=== PATIENT | female | born 1965 | race Caucasian/White ===

== ENCOUNTER → 2017-11-18 11:07 | Outpatient (CLI) | payer OTHER, SELFPAY ==
--- NOTE | 2017-11-18 | DI.MG.S_ITS ---
BILATERAL DIGITAL SCREENING MAMMOGRAM 3D/2D WITH CAD: 11/18/2017 CLINICAL: Routine screening. Comparison is made to exams dated: 10/06/2016 mammogram, 09/13/2015 mammogram, and 09/06/2014 mammogram - [facility]. The tissue of both breasts is heterogeneously dense. This may lower the sensitivity of mammography. Current study was also evaluated with a Computer Aided Detection (CAD) system. No significant masses, calcifications, or other findings are seen in either breast. There has been no significant interval change. IMPRESSION: NEGATIVE There is no mammographic evidence of malignancy. A 1 year screening mammogram is recommended. This exam was interpreted at Station ID: [id number]. NOTE: For mammograms, a report in lay terms will be sent to the patient. Approximately 15% of breast malignancies will not be visualized mammographically. In the management of a palpable breast mass, a negative mammogram must not discourage biopsy of a clinically suspicious lesion. Electronically Signed By: Davidson mary/ekaterina:11/18/2017 17:03:11 letter sent: Normal Exam ACR BI-RADS Category 1: Negative [id number]
== END ==
PROVIDERS: Family Provider Physician Assistant; PCP Physician Assistant; Visit Provider Physician Assistant
DX: Z12.31 Encounter for screening mammogram for malignant neoplasm of breast (principal)
CPT/HCPCS: 77063; 77067

== ENCOUNTER 2017-12-07 11:06 | Outpatient (CLI) | payer OTHER, SELFPAY ==
--- NOTE | 2017-12-07 11:08 | DI.RAD.S_ITS ---
PROCEDURE: PAIN L/SI FACET INJ/BLK 1STL INDICATIONS: Lumbosacral spondylosis with facet arthropathy FINDINGS: Fluoroscopic spot filming was performed to verify placement of spinal needles at the left L4, L5, and S1 level(s), as labeled on the films. Appropriate location(s) of the needle tip(s) was confirmed by injection of iodinated contrast. IMPRESSION: Successful left-sided L4-S1 needle tip localizations for medial branch block procedures. Dictated by: Alvarez Rivers M.D. on 12/07/2017 at 14:23 Approved by: Alvarez Rivers M.D. on 12/07/2017 at 14:24
[2017-12-07 11:18] VITALS: BP 124/82; PULSE 88; RESP 18; TEMP 36.2; O2SAT 97
--- NOTE | 2017-12-07 11:49 | P.PCN_ITS ---
Procedures Date/Time Date of procedure: 12/07/17 Time of procedure: 11:47 General Procedure description: POST OP DIAGNOSIS 1. FACET ARTHROPATHY PROCEDURES 1. Left L4, L5 and S1 MB BLOCKS PHYSICIAN: DO KHUSHBOO Carroll is referred by [facility] for treatment of Left Axial LBP. DESCRIPTION OF PROCEDURE Fluoroscopically guided, contrast-controlled left L4, L5 and S1 medial branch blocks with 0.5cc of 0.5% Marcaine. Following denial of allergy and review of potential side effects and complications, including, but not necessarily limited to, infection, allergic reaction, local tissue breakdown, nerve injury, paralysis, stroke and possible , the patient indicated that the patient understood and agreed to proceed. An informed consent document was signed by the patient, witnessed by a nurse, and placed in the patient's chart. The patient's vital signs were monitored throughout the procedure by both the nurse and the physician without significant fluctuation. The patient remained conversant throughout the procedure. In the prone position, following sterile prep and drape of the lumbar region, the left L4, L5 and S1 anatomical location of the medial branch of the dorsal ramus was identified fluoroscopically. Subsequently an anesthetic skin wheal using 1% lidocaine solution was initiated at each of the anatomical spots. Subsequently then a 22-gauge 3.5-inch spinal needle was atraumatically introduced and advanced under fluoroscopic guidance at each of the corresponding sites at the left L4, L5 and S1 MB. After negative aspiration, 0.2 cc of Isovue 200 was injected, confirming placement without vascular or intrathecal uptake. Subsequently then 0.5 cc of 0.5% Marcaine solution was injected at each of the corresponding sites at the left L4, L5 and S1 medial branch locations. The patient tolerated the procedure well without signs or symptoms of complications. Post-procedure, the patient was monitored initiating provocative activities to measure the amount of relief from block of the facetogenic pain. The patient reported a VAS of 7 prior to the procedure and a post-procedure VAS of 1. It has been a pleasure to assist in the diagnostic and therapeutic care of your patient. Total Fluoroscopy Time: 24.8 seconds Total Conscious Sedation Time: 24min POST OP INSTRUCTIONS The patient was provided with a Pain Log to complete over the next several hours and subsequent days prior to the patient's follow up with the ordering physician. If the patient has hopper attendant relief to the solution applied, then they may be a candidate for medial branch rhizotomy. The patient is aware , was provided, once again, with a Pain Log and will follow up with the referring physician for review and clinical correlation Dereck Kohler DO
[2017-12-07 11:52] VITALS: BP 131/80; PULSE 66; RESP 16; O2SAT 99
[2017-12-07 11:57] VITALS: BP 132/70; PULSE 65; RESP 16; O2SAT 98
[2017-12-07 12:02] VITALS: BP 126/82; PULSE 65; RESP 16; O2SAT 99
[2017-12-07 12:05] VITALS: BP 131/80; PULSE 61; RESP 16; O2SAT 99
[2017-12-07] MEDS: BETAMETHASONE 30 MG/5 ML MDV 12 MG INJ (12:07)
[2017-12-07] MEDS: IOPAMIDOL 15 ML VIAL 3 ML INJ (12:08)
[2017-12-07] MEDS: BUPIVACAINE 0.5% (PF) VIAL 2 ML INJ (12:08)
[2017-12-07 12:14] VITALS: BP 111/79; PULSE 64; RESP 16; O2SAT 100
--- NOTE | 2017-12-08 15:07 | PC.NURSE ---
FOLLOW UP CALL MADE. NO ANSWER, LEFT MS WITH PHONE OFFICE PHONE NUMBER TO CALL WITH ANY CONCERNS.
== END 2017-12-07 12:40 | disposition home or self-care (01) ==
LOC: RAD 11:07
PROVIDERS: Family Provider Physician Assistant; PCP Physician Assistant; Visit Provider Physical Medicine & Rehabilitation
DX: M47.817 Spondylosis without myelopathy or radiculopathy, lumbosacral region (principal); M47.816 Spondylosis without myelopathy or radiculopathy, lumbar region
CPT/HCPCS: 64493; 64494; J0702; J2250

== ENCOUNTER 2018-01-04 09:45 | Outpatient (RCR) | payer OTHER, SELFPAY ==
--- NOTE | 2017-09-07 14:34 | PT.OTN ---
Current Diagnoses Crushing injury of abdomen, lower back, and pelvis, subsequent encounter (09/07/17) On September 07, 2017 our therapy services consisting of Speech, Occupational, and Physical therapy transitioned from [employer] electronic documentation system to a new [employer] electronic system. All documentation prior to September 07 can be found under [employer] saved data. From September 07 forward, all medical record documentation will be in [employer] 6.1.
--- NOTE | 2017-09-07 15:07 | PT.OTN ---
Physical Therapy Treatment Note PT-OP-A Visit Information Start: 09/07/17 14:28 Freq: Status: Active Protocol: Activity Type Activity Date Activity User E-Sign Co-Sign Detail Recorded Client Recorded Date Recorded By Document 09/07/17 14:36 GGD [email or web address] 09/07/17 15:06 GGD 09/07/17 14:36 Out-Patient Physical Therapy Visit Information [Visit Information] -Visit Type Treatment Note -Visit Note POC 10/26/17 to 12/25/17 IE date : Date of injury: 12/29/16 -Visit Start Time 13:40 -Visit Stop Time 14:27 -Total Visit Minutes 40 -Visit Number 60 -Number of DOPING SUPERVISOR Visits 1 PT-OP-C Subjective Start: 09/07/17 14:28 Freq: Status: Active Protocol: Activity Type Activity Date Activity User E-Sign Co-Sign Detail Recorded Client Recorded Date Recorded By Document 09/07/17 14:36 GGD [email or web address] 09/07/17 15:06 GG 09/07/17 14:36 OP-PT Subjective [Patient Comments] -Patient Comments Pt states that she worked four days in a row. She had increase in left leg pain and right back pain on day three. She is fatigued and had other medical appointments today. -Patient Reported Progress Improving PT-OP-Q Treatments Start: 09/07/17 14:28 Freq: Status: Active Protocol: Activity Type Activity Date Activity User E-Sign Co-Sign Detail Recorded Client Recorded Date Recorded By Document 09/07/17 14:36 GGD [email or web address] 09/07/17 15:06 GGD 09/07/17 14:36 Therapeutic Exercises [Supine Exercises] 3 -Supine Exercise Name Foam roll calf self release -Side bilateral -Equipment Used foam roll -Reps/Minutes 1 2 -Supine Exercise Name TA stabilization Level 1 b -Reps/Minutes 30 -Comments cues for core control 1 -Supine Exercise Name Hand on knees push/hold -Side bilateral -Resistance 40 seconds each -Comments flexion and diagonals. [Standing Exercises] 1 -Standing Exercise Name Standing calf stretch -Side bilateral -Reps/Minutes 6 -Comments use of step and 2 box with toes forward, IR and ER [Other Exercises] 2 -Other Exercise Name Quadruped Cat/ Cow Lumbar Segmental mobility -Reps/Minutes 10 1 -Other Exercise Name Ryan pose -Side bilateral -Reps/Minutes 2 Manual Therapy Treatment [Soft Tissue Mobilization] 1 -Body Location Left Gastro, and peroneal attachment -Mobilization Type Cross-Friction Myofascial Release Rolling -Intensity/Depth Moderate -Body Position Prone Self-Care/Home Management Treatment [Education] -Patient Education Home Exercise Program -Other Education Foam Rolling for LE and calf stretch PT-OP-T Assessment and Plan Start: 09/07/17 14:28 Freq: Status: Active Protocol: Activity Type Activity Date Activity User E-Sign Co-Sign Detail Recorded Client Recorded Date Recorded By Document 09/07/17 14:36 GGD [email or web address] 09/07/17 15:06 GGD 09/07/17 14:36 Physical Therapy Assessment [Progress Towards Goals] -Progress Towards Goals Progressing Toward Goals -Progress Comments Pt is improving in flexibility and ROM. [Assessment Summary] -Assessment She improving with core stabilization, but need increase in cues with fatigue. She had improve tolerance to work with mild increase in pain and LE symptoms. Pt tender with STM to left lateral gastroc . Physical Therapy Plan [Next Visit Focus/Plan] -Next Visit Plan Advance core and LE flexibility. Progress under current plan Current Diagnoses Crushing injury of abdomen, lower back, and pelvis, subsequent encounter (09/07/17)
--- NOTE | 2017-09-09 18:05 | PT.OTN ---
Current Diagnoses Crushing injury of abdomen, lower back, and pelvis, subsequent encounter (09/09/17) Physical Therapy Treatment Note PT-OP-A Visit Information Start: 09/07/17 14:28 Freq: Status: Active Protocol: Activity Type Activity Date Activity User E-Sign Co-Sign Detail Recorded Client Recorded Date Recorded By Document 09/09/17 15:15 GGD [email or web address] 09/09/17 18:00 GGD 09/09/17 15:15 Out-Patient Physical Therapy Visit Information [Visit Information] -Visit Type Treatment Note -Visit Start Time 15:15 -Visit Stop Time 16:10 -Total Visit Minutes 55 -Visit Number 61 -Number of TUGBOAT ENGINEER Visits 2 [Evaluation Information] -Evaluation Date 01/26/17 PT-OP-C Subjective Start: 09/07/17 14:28 Freq: Status: Active Protocol: Activity Type Activity Date Activity User E-Sign Co-Sign Detail Recorded Client Recorded Date Recorded By Document 09/09/17 15:15 GGD [email or web address] 09/09/17 18:00 GGD 09/09/17 15:15 OP-PT Subjective [Patient Comments] -Patient Comments Pt states that she had decrease in left lower leg and posterior ankle pain for one day after last visit. She having less numbness and tingling in left leg, but increase in back and upper hip pain. -Patient Reported Progress Improving PT-OP-Q Treatments Start: 09/07/17 14:28 Freq: Status: Active Protocol: Activity Type Activity Date Activity User E-Sign Co-Sign Detail Recorded Client Recorded Date Recorded By Document 09/09/17 15:15 GGD [email or web address] 09/09/17 18:00 GGD 09/09/17 15:15 Therapeutic Exercises [Supine Exercises] 5 -Supine Exercise Name bug -Side bilateral -Reps/Minutes 10 4 -Supine Exercise Name Bridge with marches -Side bilateral -Reps/Minutes 10 1 -Supine Exercise Name Hand on knees push/hold -Side bilateral -Resistance 40 seconds each -Comments flexion and diagonals. [Standing Exercises] 1 -Standing Exercise Name Standing calf stretch -Side bilateral -Equipment Used Denis -Reps/Minutes 6 [Other Exercises] 2 -Other Exercise Name Quadruped Cat/ Cow Lumbar Segmental mobility -Reps/Minutes 10 1 -Other Exercise Name Ryan pose -Side bilateral -Reps/Minutes 2 Manual Therapy Treatment [Soft Tissue Mobilization] 2 -Body Location Left glute -Mobilization Type Myofascial Release Rolling Sustained Pressure -Intensity/Depth Deep -Body Position Prone 1 -Body Location Left Gastro, and peroneal attachment -Mobilization Type Cross-Friction Myofascial Release Rolling -Intensity/Depth Moderate -Body Position Prone PT-OP-R Modalities Start: 09/07/17 14:28 Freq: Status: Active Protocol: Activity Type Activity Date Activity User E-Sign Co-Sign Detail Recorded Client Recorded Date Recorded By Document 09/09/17 15:15 GGD [email or web address] 09/09/17 18:00 GGD 09/09/17 15:15 Hot Pack/Cold Pack [Treatment] Cold Pack -Location L/S -Patient Position Hooklying -Treatment Duration (minutes) 10 -Patient Tolerance Good PT-OP-T Assessment and Plan Start: 09/07/17 14:28 Freq: Status: Active Protocol: Activity Type Activity Date Activity User E-Sign Co-Sign Detail Recorded Client Recorded Date Recorded By Document 09/09/17 15:15 GGD [email or web address] 09/09/17 18:00 GGD 09/09/17 15:15 Physical Therapy Assessment [Assessment Summary] -Assessment Pt decrease tenderness with STM to achillies and increase in tenderness glutes. Improving glute and core strength Physical Therapy Plan [Frequency and Duration] -Frequency of Treatment 2x/Week -Duration of Treatment 2 months -Plan of Care Start Date 08/26/17 -Plan of Care End Date 10/25/17 [Next Visit Focus/Plan] -Next Visit Plan Progress under current plan of care. Add ankle thera band eversion for HEP and review HEP.
--- NOTE | 2017-09-16 13:31 | PT.OTN ---
Current Diagnoses Crushing injury of abdomen, lower back, and pelvis, subsequent encounter (09/14/17) Physical Therapy Treatment Note PT-OP-A Visit Information Start: 09/07/17 14:28 Freq: Status: Active Protocol: Document 09/14/17 02:30 [facility] (Rec: 09/16/17 13:31 [facility] [email or web address]) Out-Patient Physical Therapy Visit Information Visit Information Visit Type Treatment Note Visit Start Time 02:30 Visit Stop Time 03:15 Total Visit Minutes 45 Visit Number 22 Number of DATA SECURITY ADMINISTRATOR Visits 0 PT-OP-C Subjective Start: 09/07/17 14:28 Freq: Status: Active Protocol: Document 09/14/17 02:30 [facility] (Rec: 09/16/17 13:31 [facility] [email or web address]) OP-PT Subjective Patient Comments Patient Comments Neetu reports she was able to do a 7 mile flat hike. Her chief complaint is the left sided achilles pain with walking now. Her symptoms began at mile 5. Patient Reported Progress Improving PT-OP-Q Treatments Start: 09/07/17 14:28 Freq: Status: Active Protocol: Document 09/14/17 02:30 [facility] (Rec: 09/16/17 13:31 [facility] [email or web address]) Manual Therapy Treatment Soft Tissue Mobilization 3 Body Location left calf and achilles Mobilization Type Myofascial Release Strumming Trigger Point Release Intensity/Depth Moderate Body Position Prone Comments tenderness medial side of the achilles tendon Strapping Treatment Treatment Body Location left achilles Details of Treatment kinesiotape to support the left achilles tendon PT-OP-R Modalities Start: 09/07/17 14:28 Freq: Status: Active Protocol: Document 09/14/17 02:30 [facility] (Rec: 09/16/17 13:31 [facility] [email or web address]) Hot Pack/Cold Pack Treatment Ice Massage Location left achilles tendon Patient Position Prone Treatment Duration (minutes) 5 Patient Tolerance Good Ultrasound Therapy Treatment Left Leg Treatment Duration (minutes) 8 Patient Position Prone Coupling Medium Ultrasound Gel Frequency Setting (mHz) 1 Mode Setting Continuous Intensity Setting (w/cm2) 1.5 Patient Tolerance Good PT-OP-T Assessment and Plan Start: 09/07/17 14:28 Freq: Status: Active Protocol: Document 09/14/17 02:30 [facility] (Rec: 09/16/17 13:31 [facility] [email or web address]) Physical Therapy Assessment Assessment Summary Assessment Neetu has shown good imrpovement overall with her pelvis. Her chief complaint today is her achilles tendon. As she has been able to increase her distance with walking but her achilles pain is limiting her. Physical Therapy Plan Frequency and Duration Frequency of Treatment 2x/Week Duration of Treatment 2 months Plan of Care Start Date 08/26/17 Plan of Care End Date 10/25/17 Therapeutic Interventions Therapeutic Interventions Home Exercise Program Manual Therapy Neuromuscular Re-education Self-Care/Home Management Soft Tissue Mobilization Taping Therapeutic Exercises Next Visit Focus/Plan Next Visit Plan continue to progress HEP and send in a referral for iontophoresis for the achilles tendon
--- NOTE | 2017-09-21 17:04 | PT.OTN ---
Current Diagnoses Crushing injury of abdomen, lower back, and pelvis, subsequent encounter (09/21/17) Physical Therapy Treatment Note PT-OP-A Visit Information Start: 09/07/17 14:28 Freq: Status: Active Protocol: Document 09/21/17 13:45 GGD (Rec: 09/21/17 17:04 GGD [email or web address]) Out-Patient Physical Therapy Visit Information Visit Information Visit Type Treatment Note Visit Start Time 13:45 Visit Stop Time 14:30 Total Visit Minutes 45 Visit Number 63 Number of INDUSTRIAL ENGINEER Visits 1 PT-OP-C Subjective Start: 09/07/17 14:28 Freq: Status: Active Protocol: Document 09/21/17 13:45 GGD (Rec: 09/21/17 17:04 GGD [email or web address]) OP-PT Subjective Patient Comments Patient Comments Pt states she had mild pain in back, and improved ankle movement with less pain. Patient Reported Progress Improving PT-OP-Q Treatments Start: 09/07/17 14:28 Freq: Status: Active Protocol: Document 09/21/17 13:45 GGD (Rec: 09/21/17 17:04 GGD [email or web address]) Manual Therapy Treatment Soft Tissue Mobilization 3 Body Location left calf and achilles Mobilization Type Myofascial Release Strumming Trigger Point Release Intensity/Depth Moderate Body Position Prone Comments tenderness medial side of the achilles tendon PT-OP-R Modalities Start: 09/07/17 14:28 Freq: Status: Active Protocol: Document 09/21/17 13:45 GGD (Rec: 09/21/17 17:04 GGD [email or web address]) Iontophoresis Treatment Right Ankle Treatment Medication Dexamethasone (-) Treatment Polarity Negative to Negative Patient Tolerance Good Ultrasound Therapy Treatment Left Leg Treatment Duration (minutes) 8 Patient Position Prone Coupling Medium Ultrasound Gel Frequency Setting (mHz) 1 Mode Setting Continuous Intensity Setting (w/cm2) 1.5 Patient Tolerance Good PT-OP-T Assessment and Plan Start: 09/07/17 14:28 Freq: Status: Active Protocol: Document 09/21/17 13:45 GGD (Rec: 09/21/17 17:04 GGD [email or web address]) Physical Therapy Assessment Assessment Summary Assessment Pt had decreasing tenderness and improving ROM. Physical Therapy Plan Frequency and Duration Frequency of Treatment 2x/Week Duration of Treatment 2 months Plan of Care Start Date 04/19/18 Plan of Care End Date 10/25/17 Next Visit Focus/Plan Next Visit Plan Progress under current plan of care. Add ankle thera band eversion for HEP and review HEP.
--- NOTE | 2017-09-23 17:45 | PT.OTN ---
Current Diagnoses Crushing injury of abdomen, lower back, and pelvis, subsequent encounter (09/23/17) Physical Therapy Treatment Note PT-OP-A Visit Information Start: 09/07/17 14:28 Freq: Status: Active Protocol: Document 09/23/17 14:35 GGD (Rec: 09/23/17 17:44 GGD [email or web address]) Out-Patient Physical Therapy Visit Information Visit Information Visit Type Treatment Note Visit Start Time 14:30 Visit Stop Time 13:25 Visit Number 55 Number of WOOD CASKET MAKER Visits 2 Evaluation Information Evaluation Date 01/26/17 PT-OP-C Subjective Start: 09/07/17 14:28 Freq: Status: Active Protocol: Document 09/23/17 14:35 GGD (Rec: 09/23/17 17:44 GGD [email or web address]) OP-PT Subjective Patient Comments Patient Comments 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 OP-PT Pain Assessment Location Lower Back Intensity 5 Scale Used Numeric (1 - 10) Description Aching Dull Sharp PT-OP-Q Treatments Start: 09/07/17 14:28 Freq: Status: Active Protocol: Document 09/23/17 14:35 GGD (Rec: 09/23/17 17:44 GGD [email or web address]) Manual Therapy Treatment Soft Tissue Mobilization 3 Body Location left calf and achilles Mobilization Type Myofascial Release Strumming Trigger Point Release Intensity/Depth Moderate Body Position Prone Comments tenderness medial side of the achilles tendon 2 Body Location Left glute Mobilization Type Myofascial Release Rolling Sustained Pressure Intensity/Depth Deep Body Position Prone Manual Techniques 1 Type MET for left posterior rotation Body Position Supine Reps/Duration 3 PT-OP-R Modalities Start: 09/07/17 14:28 Freq: Status: Active Protocol: Document 09/23/17 14:35 GGD (Rec: 09/23/17 17:44 GGD [email or web address]) Hot Pack/Cold Pack Treatment Cold Pack Location L/S Patient Position Hooklying Treatment Duration (minutes) 10 Patient Tolerance Good Iontophoresis Treatment Right Ankle Treatment Medication Dexamethasone (-) Treatment Polarity Negative to Negative Patient Tolerance Good Ultrasound Therapy Treatment Left Leg Treatment Duration (minutes) 8 Patient Position Prone Coupling Medium Ultrasound Gel Frequency Setting (mHz) 1 Mode Setting Continuous Intensity Setting (w/cm2) 1.5 Patient Tolerance Good PT-OP-T Assessment and Plan Start: 09/07/17 14:28 Freq: Status: Active Protocol: Document 09/23/17 14:35 GGD (Rec: 09/23/17 17:44 GGD [email or web address]) Physical Therapy Assessment Assessment Summary Assessment Pt had decrease in pain with treatment. She had increase in gaurding with gait. Physical Therapy Plan Frequency and Duration Frequency of Treatment 2x/Week Duration of Treatment 2 months Plan of Care Start Date 08/26/17 Plan of Care End Date 10/25/17 Next Visit Focus/Plan Next Visit Plan Progress under current plan of care. Add ankle thera band eversion for HEP and review HEP.
--- NOTE | 2017-09-28 18:13 | PT.OTN ---
Current Diagnoses Crushing injury of abdomen, lower back, and pelvis, subsequent encounter (09/28/17) Physical Therapy Treatment Note PT-OP-A Visit Information Start: 09/07/17 14:28 Freq: Status: Active Protocol: Document 09/28/17 18:08 [facility] (Rec: 09/28/17 18:13 [facility] [email or web address]) Out-Patient Physical Therapy Visit Information Visit Information Visit Type Treatment Note Visit Start Time 13:45 Visit Stop Time 14:30 Total Visit Minutes 45 Visit Number 65 Number of RHEOLOGIST Visits 0 PT-OP-C Subjective Start: 09/07/17 14:28 Freq: Status: Active Protocol: Document 09/28/17 18:08 [facility] (Rec: 09/28/17 18:13 [facility] [email or web address]) OP-PT Subjective Patient Comments Patient Comments Neetu reports she is a little tighter today across the low back and SI joint PT-OP-Q Treatments Start: 09/07/17 14:28 Freq: Status: Active Protocol: Document 09/28/17 18:08 [facility] (Rec: 09/28/17 18:13 [facility] [email or web address]) Manual Therapy Treatment Soft Tissue Mobilization 4 Body Location lumbar paraspinals Mobilization Type Myofascial Release Rolling Intensity/Depth Moderate Body Position Prone 2 Body Location Left glute Mobilization Type Myofascial Release Rolling Sustained Pressure Intensity/Depth Deep Body Position Prone Joint Mobilizations 1 Joint sacral counter nutation Grade II Body Position Prone PT-OP-R Modalities Start: 09/07/17 14:28 Freq: Status: Active Protocol: Document 09/23/17 14:35 GGD (Rec: 09/23/17 17:44 GGD [email or web address]) Hot Pack/Cold Pack Treatment Cold Pack Location L/S Patient Position Hooklying Treatment Duration (minutes) 10 Patient Tolerance Good Iontophoresis Treatment Right Ankle Treatment Medication Dexamethasone (-) Treatment Polarity Negative to Negative Patient Tolerance Good Ultrasound Therapy Treatment Left Leg Treatment Duration (minutes) 8 Patient Position Prone Coupling Medium Ultrasound Gel Frequency Setting (mHz) 1 Mode Setting Continuous Intensity Setting (w/cm2) 1.5 Patient Tolerance Good PT-OP-T Assessment and Plan Start: 09/07/17 14:28 Freq: Status: Active Protocol: Document 09/28/17 18:08 [facility] (Rec: 09/28/17 18:13 [facility] [email or web address]) Physical Therapy Assessment Assessment Summary Assessment Neetu had improved lumbar flexion following treatment and felt as if things had been released. Physical Therapy Plan Frequency and Duration Frequency of Treatment 2x/Week Duration of Treatment 2 months Plan of Care Start Date 08/26/17 Plan of Care End Date 10/25/17 Therapeutic Interventions Therapeutic Interventions Home Exercise Program Manual Therapy Neuromuscular Re-education Self-Care/Home Management Soft Tissue Mobilization Taping Therapeutic Exercises Next Visit Focus/Plan Next Visit Plan progress under current plan of care and emphasize SI stability and alignment Please Sign and Return: I have reviewed this Plan of Care and certify that the skilled therapy services above are required to meet the patient???s needs. Physician Signature Date Printed Name and Credentials Clinical Instructor Signature Printed Name and Credentials
--- NOTE | 2017-09-30 15:24 | PT.OTN ---
Current Diagnoses Crushing injury of abdomen, lower back, and pelvis, subsequent encounter (09/30/17) Physical Therapy Treatment Note PT-OP-A Visit Information Start: 09/07/17 14:28 Freq: Status: Active Protocol: Document 09/30/17 15:13 GGD (Rec: 09/30/17 15:23 GGD [email or web address]) Out-Patient Physical Therapy Visit Information Visit Information Visit Type Treatment Note Visit Start Time 14:35 Visit Stop Time 15:25 Total Visit Minutes 55 Visit Number 66 Number of INDUSTRIAL SAFETY AND HEALTH SPECIALIST Visits 1 Evaluation Information Evaluation Date 01/26/17 PT-OP-C Subjective Start: 09/07/17 14:28 Freq: Status: Active Protocol: Document 09/30/17 15:13 GGD (Rec: 09/30/17 15:23 GGD [email or web address]) OP-PT Subjective Patient Comments Patient Comments Pt states her LBK is tight and has decrease her exercise to stretch. PT-OP-Q Treatments Start: 09/07/17 14:28 Freq: Status: Active Protocol: Document 09/30/17 15:13 GGD (Rec: 09/30/17 15:23 GGD [email or web address]) Manual Therapy Treatment Soft Tissue Mobilization 4 Body Location lumbar paraspinals Mobilization Type Myofascial Release Rolling Intensity/Depth Moderate Body Position Prone 2 Body Location Left glute Mobilization Type Myofascial Release Rolling Sustained Pressure Intensity/Depth Deep Body Position Prone Joint Mobilizations 1 Joint sacral counter nutation Grade II Body Position Prone Manual Techniques 1 Type MET for left posterior rotation Body Position Supine Reps/Duration 3 PT-OP-R Modalities Start: 09/07/17 14:28 Freq: Status: Active Protocol: Document 09/30/17 15:13 GGD (Rec: 09/30/17 15:23 GGD [email or web address]) Hot Pack/Cold Pack Treatment Cold Pack Location L/S Patient Position Hooklying Treatment Duration (minutes) 10 Patient Tolerance Good Iontophoresis Treatment Right Ankle Treatment Medication Dexamethasone (-) Treatment Polarity Negative to Negative Patient Tolerance Good PT-OP-T Assessment and Plan Start: 09/07/17 14:28 Freq: Status: Active Protocol: Document 09/30/17 15:13 GGD (Rec: 09/30/17 15:23 GGD [email or web address]) Physical Therapy Assessment Assessment Summary Assessment PT had decrease in pain with treatment and improve ROM. Physical Therapy Plan Frequency and Duration Frequency of Treatment 2x/Week Duration of Treatment 2 months Plan of Care Start Date 08/26/17 Plan of Care End Date 10/25/17 Next Visit Focus/Plan Next Note Type Treatment Note Next Visit Plan progress under current plan of care and emphasize SI stability and alignment
--- NOTE | 2017-10-07 16:47 | PT.OTN ---
Current Diagnoses Crushing injury of abdomen, lower back, and pelvis, subsequent encounter (10/07/17) Physical Therapy Treatment Note PT-OP-A Visit Information Start: 09/07/17 14:28 Freq: Status: Active Protocol: Document 10/07/17 14:30 GGD (Rec: 10/07/17 16:46 GGD [email or web address]) Out-Patient Physical Therapy Visit Information Visit Information Visit Type Treatment Note Visit Start Time 14:30 Visit Stop Time 15:15 Total Visit Minutes 45 Visit Number 67 Number of MANAGER ORANGE Visits 2 Evaluation Information Evaluation Date 01/26/17 PT-OP-C Subjective Start: 09/07/17 14:28 Freq: Status: Active Protocol: Document 10/07/17 14:30 GGD (Rec: 10/07/17 16:46 GGD [email or web address]) OP-PT Subjective Patient Comments Patient Comments Pt states that she still having some tightness and LBK pain, but able to retrun to strengthening. PT-OP-Q Treatments Start: 09/07/17 14:28 Freq: Status: Active Protocol: Document 10/07/17 14:30 GGD (Rec: 10/07/17 16:46 GGD [email or web address]) Therapeutic Exercises Supine Exercises 5 Supine Exercise Name bug Side bilateral Reps/Minutes 10 4 Supine Exercise Name Bridge with marches Side bilateral Reps/Minutes 10 1 Supine Exercise Name Hand on knees push/hold Side bilateral Resistance 40 seconds each Comments flexion and diagonals. Other Exercises 2 Other Exercise Name Quadruped Cat/Cow Lumbar Segmental mobility Reps/Minutes 10 1 Other Exercise Name Ryan pose Side bilateral Reps/Minutes 2 Manual Therapy Treatment Soft Tissue Mobilization 4 Body Location lumbar paraspinals Mobilization Type Myofascial Release Rolling Intensity/Depth Moderate Body Position Prone 2 Body Location Left glute Mobilization Type Myofascial Release Rolling Sustained Pressure Intensity/Depth Deep Body Position Prone Joint Mobilizations 1 Joint sacral counter nutation Grade II Body Position Prone Manual Techniques 1 Type MET for left posterior rotation Body Position Supine Reps/Duration 3 PT-OP-R Modalities Start: 09/07/17 14:28 Freq: Status: Active Protocol: Document 10/07/17 14:30 GGD (Rec: 10/07/17 16:46 GGD [email or web address]) Iontophoresis Treatment Right Ankle Treatment Medication Dexamethasone (-) Treatment Polarity Negative to Negative Patient Tolerance Good PT-OP-T Assessment and Plan Start: 09/07/17 14:28 Freq: Status: Active Protocol: Document 10/07/17 14:30 GGD (Rec: 10/07/17 16:46 GGD [email or web address]) Physical Therapy Assessment Assessment Summary Assessment Pt decrease pain and improve tolerance to core strengthening Physical Therapy Plan Frequency and Duration Frequency of Treatment 2x/Week Duration of Treatment 2 months Plan of Care Start Date 08/26/17 Plan of Care End Date 10/25/17 Next Visit Focus/Plan Next Note Type Treatment Note Next Visit Plan progress under current plan of care and emphasize SI stability and alignment
--- NOTE | 2017-10-07 17:13 | PT.OTN ---
Current Diagnoses Crushing injury of abdomen, lower back, and pelvis, subsequent encounter (10/07/17) Physical Therapy Treatment Note This is a late entry for visit on 10/05/17. PT-OP-A Visit Information Start: 09/07/17 14:28 Freq: Status: Active Protocol: Document 10/07/17 17:05 SAK (Rec: 10/07/17 17:13 [facility] [id number]) Out-Patient Physical Therapy Visit Information Visit Information Visit Type Treatment Note Visit Start Time 13:45 Visit Stop Time 14:30 Total Visit Minutes 45 Visit Number 67 Number of RETAIL ADMINISTRATIVE ASSISTANT Visits 0 Evaluation Information Evaluation Date 01/26/17 PT-OP-C Subjective Start: 09/07/17 14:28 Freq: Status: Active Protocol: Document 10/07/17 17:05 SAK (Rec: 10/07/17 17:13 [facility] [id number]) OP-PT Subjective Patient Comments Patient Comments Patient reports she has been to chiropractor and massage therapist before PT today, requests focus on exercise and calf today. Open to suggestions from new PT. Patient Reported Progress Improving PT-OP-Q Treatments Start: 09/07/17 14:28 Freq: Status: Active Protocol: Document 10/07/17 17:05 SAK (Rec: 10/07/17 17:13 [facility] [id number]) Therapeutic Exercises Supine Exercises 5 Supine Exercise Name bug Side bilateral Reps/Minutes 10 4 Supine Exercise Name Bridge with marches Side bilateral Reps/Minutes 10 1 Supine Exercise Name Hand on knees push/hold, pull /hold Side bilateral Resistance 40 seconds each Comments flexion, ext and diagonals. Standing Exercises 1 Standing Exercise Name HC stretch Other Exercises 2 Other Exercise Name Quadruped Cat/Cow Lumbar Segmental mobility Reps/Minutes 10 1 Other Exercise Name Ryan pose Side bilateral Reps/Minutes 2 Manual Therapy Treatment Soft Tissue Mobilization 3 Body Location left calf and achilles Mobilization Type Myofascial Release Strumming Trigger Point Release Intensity/Depth Moderate Body Position Prone Comments tenderness medial side of the achilles tendon PT-OP-R Modalities Start: 09/07/17 14:28 Freq: Status: Active Protocol: Document 10/07/17 17:05 SAK (Rec: 10/07/17 17:13 [facility] [id number]) Iontophoresis Treatment Right Ankle Treatment Medication Dexamethasone (-) Treatment Polarity Negative to Negative Patient Tolerance Good Ultrasound Therapy Treatment Left Leg Treatment Duration (minutes) 8 Patient Position Prone Coupling Medium Ultrasound Gel Frequency Setting (mHz) 1 Mode Setting Continuous Intensity Setting (w/cm2) 1.5 PT-OP-T Assessment and Plan Start: 09/07/17 14:28 Freq: Status: Active Protocol: Document 10/07/17 17:05 ROSEANN (Rec: 10/07/17 17:13 [facility] [id number]) Physical Therapy Assessment Assessment Summary Assessment Patient continues to benefit from PT with decrease in pain, improved ROM, strength, and function. Physical Therapy Plan Frequency and Duration Frequency of Treatment 2x/Week Duration of Treatment 2 months Plan of Care Start Date 08/26/17 Plan of Care End Date 10/25/17 Next Visit Focus/Plan Next Note Type Treatment Note Next Visit Plan progress under current plan of care and emphasize SI stability and alignment.
--- NOTE | 2017-10-13 14:39 | PT.OTN ---
Current Diagnoses Crushing injury of abdomen, lower back, and pelvis, subsequent encounter (10/13/17) Physical Therapy Treatment Note PT-OP-A Visit Information Start: 09/07/17 14:28 Freq: Status: Active Protocol: Document 10/13/17 14:39 [facility] (Rec: 10/13/17 14:39 [facility] [email or web address]) Out-Patient Physical Therapy Visit Information Visit Information Visit Type Treatment Note Visit Start Time 12:15 Visit Stop Time 13:00 Total Visit Minutes 45 Visit Number 69 Number of TRACK FITTER Visits 0 PT-OP-C Subjective Start: 09/07/17 14:28 Freq: Status: Active Protocol: Document 10/13/17 14:30 [facility] (Rec: 10/13/17 14:37 [facility] [email or web address]) OP-PT Subjective Patient Comments Patient Comments Neetu Reports she has had some return of the nerve symptoms on the left side of the SI joint and is tight on the right side of the SI joint. PT-OP-Q Treatments Start: 09/07/17 14:28 Freq: Status: Active Protocol: Document 10/13/17 14:30 [facility] (Rec: 10/13/17 14:37 [facility] [email or web address]) Manual Therapy Treatment Soft Tissue Mobilization 4 Body Location lumbar paraspinals Mobilization Type Myofascial Release Rolling Intensity/Depth Moderate Body Position Prone 2 Body Location Left glute Mobilization Type Myofascial Release Rolling Sustained Pressure Intensity/Depth Deep Body Position Prone Joint Mobilizations 1 Joint sacral counter nutation Grade II Body Position Prone PT-OP-R Modalities Start: 09/07/17 14:28 Freq: Status: Active Protocol: Document 10/13/17 14:30 [facility] (Rec: 10/13/17 14:37 [facility] [email or web address]) Ultrasound Therapy Treatment left sacral REBECA muscular attachments Treatment Duration (minutes) 8 Patient Position Prone Coupling Medium Ultrasound Gel Applicator Size (cm2) 5 Frequency Setting (mHz) 1 Mode Setting Continuous Duty Cycle 100% Intensity Setting (w/cm2) 1.5 PT-OP-T Assessment and Plan Start: 09/07/17 14:28 Freq: Status: Active Protocol: Document 10/13/17 14:30 [facility] (Rec: 10/13/17 14:37 [facility] [email or web address]) Physical Therapy Assessment Assessment Summary Assessment Neetu had a flare up of symptoms today in her SI with nerve pain symptoms in L4-L5 and left SI joint region. I did talk to her about considering prolotherapy Physical Therapy Plan Frequency and Duration Frequency of Treatment 2x/Week Duration of Treatment 2 months Plan of Care Start Date 08/26/17 Plan of Care End Date 10/25/17 Therapeutic Interventions Therapeutic Interventions Home Exercise Program Manual Therapy Neuromuscular Re-education Self-Care/Home Management Soft Tissue Mobilization Taping Therapeutic Exercises Next Visit Focus/Plan Next Note Type Treatment Note Next Visit Plan progress under current plan of care and emphasize SI stability and alignment Please Sign and Return: I have reviewed this Plan of Care and certify that the skilled therapy services above are required to meet the patient?s needs. Physician Signature Date Printed Name and Credentials Clinical Instructor Signature Printed Name and Credentials
--- NOTE | 2017-10-19 16:45 | PT.OTN ---
Current Diagnoses Crushing injury of abdomen, lower back, and pelvis, subsequent encounter (10/19/17) Physical Therapy Treatment Note PT-OP-A Visit Information Start: 09/07/17 14:28 Freq: Status: Active Protocol: Document 10/19/17 16:45 GGD (Rec: 10/20/17 17:27 [facility] [email or web address]) Out-Patient Physical Therapy Visit Information Visit Information Visit Type Treatment Note Visit Start Time 16:45 Visit Stop Time 17:30 Total Visit Minutes 45 Visit Number 70 Number of INSPECTOR MOTOR VEHICLES Visits 1 Evaluation Information Evaluation Date 01/26/17 PT-OP-C Subjective Start: 09/07/17 14:28 Freq: Status: Active Protocol: Document 10/19/17 16:45 [facility]GD (Rec: 10/20/17 17:27 [facility] [email or web address]) OP-PT Subjective Patient Comments Patient Comments Pt reports that nerve pain has increase to the point that light touch in painful and can 't tolerate pants. PT-OP-Q Treatments Start: 09/07/17 14:28 Freq: Status: Active Protocol: Document 10/19/17 16:45 [facility]GD (Rec: 10/20/17 17:27 [facility] [email or web address]) Manual Therapy Treatment Soft Tissue Mobilization 4 Body Location lumbar paraspinals Mobilization Type Myofascial Release Rolling Intensity/Depth Moderate Body Position Prone 2 Body Location Left glute Mobilization Type Myofascial Release Rolling Sustained Pressure Intensity/Depth Deep Body Position Prone Joint Mobilizations 1 Joint sacral counter nutation Grade II Body Position Prone PT-OP-R Modalities Start: 09/07/17 14:28 Freq: Status: Active Protocol: Document 10/19/17 16:45 [facility]GD (Rec: 10/20/17 17:27 [facility] [email or web address]) Ultrasound Therapy Treatment left sacral REBECA muscular attachments Treatment Duration (minutes) 8 Patient Position Prone Coupling Medium Ultrasound Gel Applicator Size (cm2) 5 Frequency Setting (mHz) 1 Mode Setting Continuous Duty Cycle 100% Intensity Setting (w/cm2) 1.5 PT-OP-T Assessment and Plan Start: 09/07/17 14:28 Freq: Status: Active Protocol: Document 10/19/17 16:45 [facility]GD (Rec: 10/20/17 17:27 [facility] [email or web address]) Physical Therapy Assessment Assessment Summary Assessment Pt had decrease tenderness and pain with treatment. Physical Therapy Plan Frequency and Duration Frequency of Treatment 2x/Week Duration of Treatment 2 months Plan of Care Start Date 08/26/17 Plan of Care End Date 10/25/17 Next Visit Focus/Plan Next Note Type Treatment Note Next Visit Plan progress under current plan of care and emphasize SI stability and alignment
--- NOTE | 2017-10-27 13:39 | PT.OPPN ---
Current Diagnoses Crushing injury of abdomen, lower back, and pelvis, subsequent encounter (10/27/17) Physical Therapy Progress Note PT-OP-A Visit Information Start: 09/07/17 14:28 Freq: Status: Active Protocol: Document 10/27/17 13:17 [facility] (Rec: 10/27/17 13:34 [facility] [email or web address]) Out-Patient Physical Therapy Visit Information Visit Information Visit Type Progress Note Visit Start Time 12:15 Visit Stop Time 13:10 Total Visit Minutes 55 Visit Number 71 Number of BANKING OFFICER Visits 0 Evaluation Information Evaluation Date 01/26/17 PT-OP-C Subjective Start: 09/07/17 14:28 Freq: Status: Active Protocol: Document 10/27/17 13:17 [facility] (Rec: 10/27/17 13:34 [facility] [email or web address]) OP-PT Subjective Patient Comments Patient Comments Neetu reports she is feeling the nerve irritation again on the left side of her pelvis. She is not able to wear tight pants because they irritate the skin and increase nerve sensitivity. She notes that the pain levels in her left hip have stayed down after the cortisone but the nerve irritation has returned. She describes this as a constant stinging/shocking sensation in the left SI. This was present before the cortisone injection but went away, it is now returned in the past couple of weeks. She also recently changed boats at work where it increased her walking distance and she is not sure if this increase distance has irritated her SI joint. PT-OP-K Range of Motion Start: 09/07/17 14:28 Freq: Status: Active Protocol: Document 10/27/17 13:35 [facility] (Rec: 10/27/17 13:36 [facility] [email or web address]) Hip Goniometric Range of Motion Hip Measured in Degrees Right Hip ROM WFL Yes Left Hip ROM WFL Yes PT-OP-T Assessment and Plan Start: 09/07/17 14:28 Freq: Status: Active Protocol: Document 10/27/17 13:17 [facility] (Rec: 10/27/17 13:34 [facility] [email or web address]) Physical Therapy Assessment Assessment Summary Assessment Overall Neetu continues to make progress and her pain levels have continued to decrease. She is still dealing with SI instability and today her sacrum was rotated left as well as held into counternutation. She is feeling quite a bit of nerve sensitivity and stinging on the left SI joint. Even sensitivity with clothing touching her skin or a towel rubbing over her skin. I am wondering about prolotherapy for her to help stabilize her SI joint. She is able to facilitate her core muscles but seems to still have instability in the left SI region despite strengthening. Physical Therapy Plan Frequency and Duration Frequency of Treatment 2x/Week Duration of Treatment 2 months Plan of Care Start Date 08/26/17 Plan of Care End Date 10/25/17 Therapeutic Interventions Therapeutic Interventions Home Exercise Program Manual Therapy Neuromuscular Re-education Self-Care/Home Management Soft Tissue Mobilization Taping Therapeutic Exercises Next Visit Focus/Plan Next Note Type Treatment Note Next Visit Plan progress under current plan of care and emphasize SI stability and alignment. Recheck sacral alignment next visit. Neetu will also try self MFR with two tennis balls on either side of REBECA's for self correction of sacral counter nutation
--- NOTE | 2017-10-27 13:46 | PT.OTN ---
Current Diagnoses Crushing injury of abdomen, lower back, and pelvis, subsequent encounter (10/27/17) Physical Therapy Treatment Note PT-OP-A Visit Information Start: 09/07/17 14:28 Freq: Status: Active Protocol: Document 10/27/17 13:17 [facility] (Rec: 10/27/17 13:34 [facility] [email or web address]) Out-Patient Physical Therapy Visit Information Visit Information Visit Type Progress Note Visit Start Time 12:15 Visit Stop Time 13:10 Total Visit Minutes 55 Visit Number 71 Number of SPECIALTY MANUFACTURING SUPERVISOR Visits 0 Evaluation Information Evaluation Date 01/26/17 PT-OP-C Subjective Start: 09/07/17 14:28 Freq: Status: Active Protocol: Document 10/27/17 13:17 [facility] (Rec: 10/27/17 13:34 [facility] [email or web address]) OP-PT Subjective Patient Comments Patient Comments Neetu reports she is feeling the nerve irritation again on the left side of her pelvis. She is not able to wear tight pants because they irritate the skin and increase nerve sensitivity. She notes that the pain levels in her left hip have stayed down after the cortisone but the nerve irritation has returned. She describes this as a constant stinging/shocking sensation in the left SI. This was present before the cortisone injection but went away, it is now returned in the past couple of weeks. She also recently changed boats at work where it increased her walking distance and she is not sure if this increase distance has irritated her SI joint. PT-OP-K Range of Motion Start: 09/07/17 14:28 Freq: Status: Active Protocol: Document 10/27/17 13:35 [facility] (Rec: 10/27/17 13:36 [facility] [email or web address]) Hip Goniometric Range of Motion Hip Measured in Degrees Right Hip ROM WFL Yes Left Hip ROM WFL Yes PT-OP-Q Treatments Start: 09/07/17 14:28 Freq: Status: Active Protocol: Document 10/27/17 13:17 [facility] (Rec: 10/27/17 13:34 [facility] [email or web address]) Manual Therapy Treatment Soft Tissue Mobilization 4 Body Location lumbar paraspinals Mobilization Type Myofascial Release Rolling Intensity/Depth Moderate Body Position Prone 2 Body Location Left glute Mobilization Type Myofascial Release Rolling Sustained Pressure Intensity/Depth Deep Body Position Prone Joint Mobilizations 2 Joint sacral rotation right MET Comments left sidelying MET for right rotation of the sacrum ( sacrum was held in left rotation) 1 Joint sacral counter nutation Grade II Body Position Prone PT-OP-R Modalities Start: 09/07/17 14:28 Freq: Status: Active Protocol: Document 10/27/17 13:17 [facility] (Rec: 10/27/17 13:34 [facility] [email or web address]) Electric Stimulation Electric Stimulation Interferential Current (IFC) Body Location Sacrum and SI joint Duration (Minutes) 15 Combined With Heat/Cold Cold Pack Hot Pack/Cold Pack Treatment Cold Pack Location SI joint Ultrasound Therapy Treatment left sacral REBECA muscular attachments Treatment Duration (minutes) 8 Patient Position Prone Coupling Medium Ultrasound Gel Applicator Size (cm2) 5 Frequency Setting (mHz) 1 Mode Setting Continuous Duty Cycle 100% Intensity Setting (w/cm2) 1.5 PT-OP-T Assessment and Plan Start: 09/07/17 14:28 Freq: Status: Active Protocol: Document 10/27/17 13:17 [facility] (Rec: 10/27/17 13:34 [facility] [email or web address]) Physical Therapy Assessment Assessment Summary Assessment Overall Neetu continues to make progress and her pain levels have continued to decrease. She is still dealing with SI instability and today her sacrum was rotated left as well as held into counternutation. She is feeling quite a bit of nerve sensitivity on the left SI joint. Even sensitivity with clothing touching her skin or a towel rubbing over her skin. I am wondering about prolotherapy for her to help stabilize her SI joint. She is able to facilitate her core muscles but seems to still have instability in the left SI region despite strengthening. Physical Therapy Plan Frequency and Duration Frequency of Treatment 2x/Week Duration of Treatment 2 months Plan of Care Start Date 08/26/17 Plan of Care End Date 10/25/17 Therapeutic Interventions Therapeutic Interventions Home Exercise Program Manual Therapy Neuromuscular Re-education Self-Care/Home Management Soft Tissue Mobilization Taping Therapeutic Exercises Next Visit Focus/Plan Next Note Type Treatment Note Next Visit Plan progress under current plan of care and emphasize SI stability and alignment. Recheck sacral alignment next visit. Neetu will also try self MFR with two tennis balls on either side of REBECA's for self correction of sacral counter nutation
--- NOTE | 2017-11-04 19:01 | PT.OTN ---
Current Diagnoses Crushing injury of abdomen, lower back, and pelvis, subsequent encounter (11/03/17) Physical Therapy Treatment Note PT-OP-A Visit Information Start: 09/07/17 14:28 Freq: Status: Active Protocol: Document 11/03/17 12:15 [facility] (Rec: 11/04/17 18:57 [facility] [email or web address]) Out-Patient Physical Therapy Visit Information Visit Information Visit Type Treatment Note Visit Start Time 12:15 Visit Stop Time 13:00 Total Visit Minutes 45 Visit Number 72 Number of WASHHOUSE HAND Visits 0 PT-OP-C Subjective Start: 09/07/17 14:28 Freq: Status: Active Protocol: Document 11/03/17 12:15 [facility] (Rec: 11/04/17 18:57 [facility] [email or web address]) OP-PT Subjective Patient Comments Patient Comments Neetu reports she saw Dr. Kohler and he does not think prolotherapy at this time is warrented. He will do another series of cortisone injections into the lumbar spine first and then nerve cauterization PT-OP-K Range of Motion Start: 09/07/17 14:28 Freq: Status: Active Protocol: Document 10/27/17 13:35 [facility] (Rec: 10/27/17 13:36 [facility] [email or web address]) Hip Goniometric Range of Motion Hip Measured in Degrees Right Hip ROM WFL Yes Left Hip ROM WFL Yes PT-OP-Q Treatments Start: 09/07/17 14:28 Freq: Status: Active Protocol: Document 11/03/17 12:15 [facility] (Rec: 11/04/17 18:57 [facility] [email or web address]) Manual Therapy Treatment Soft Tissue Mobilization 4 Body Location lumbar paraspinals Mobilization Type Myofascial Release Rolling Intensity/Depth Moderate Body Position Prone 2 Body Location Left glute Mobilization Type Myofascial Release Rolling Sustained Pressure Intensity/Depth Deep Body Position Prone Joint Mobilizations 1 Joint sacral counter nutation Grade II Body Position Prone PT-OP-R Modalities Start: 09/07/17 14:28 Freq: Status: Active Protocol: Document 11/04/17 19:00 [facility] (Rec: 11/04/17 19:00 [facility] [email or web address]) Ultrasound Therapy Treatment left sacral REBECA muscular attachments Patient Position Prone Coupling Medium Ultrasound Gel Applicator Size (cm2) 5 Mode Setting Continuous Duty Cycle 100% Comments 1.5 PT-OP-T Assessment and Plan Start: 09/07/17 14:28 Freq: Status: Active Protocol: Document 11/03/17 12:15 [facility] (Rec: 11/04/17 18:57 [facility] [email or web address]) Physical Therapy Assessment Assessment Summary Assessment still sensitve on the Left Si joint region to light touch initially. Nerve pain did calm down following treatment. Physical Therapy Plan Frequency and Duration Frequency of Treatment 2x/Week Duration of Treatment 2 months Plan of Care Start Date 08/26/17 Plan of Care End Date 10/25/17 Therapeutic Interventions Therapeutic Interventions Home Exercise Program Manual Therapy Neuromuscular Re-education Self-Care/Home Management Soft Tissue Mobilization Taping Therapeutic Exercises Next Visit Focus/Plan Next Note Type Treatment Note Next Visit Plan progress under current plan of care and emphasize SI stability and alignment. Recheck sacral alignment next visit. Neetu will also try self MFR with two tennis balls on either side of REBECA's for self correction of sacral counter nutation
--- NOTE | 2017-11-09 11:30 | PT.OTN ---
Current Diagnoses Crushing injury of abdomen, lower back, and pelvis, subsequent encounter (11/09/17) Physical Therapy Treatment Note PT-OP-A Visit Information Start: 09/07/17 14:28 Freq: Status: Active Protocol: Document 11/09/17 11:24 [facility] (Rec: 11/09/17 11:30 [facility] [email or web address]) Out-Patient Physical Therapy Visit Information Visit Information Visit Type Treatment Note Visit Start Time 12:15 Visit Stop Time 13:00 Total Visit Minutes 45 Visit Number 73 Number of WOOD FENCE ERECTOR Visits 0 PT-OP-C Subjective Start: 09/07/17 14:28 Freq: Status: Active Protocol: Document 11/09/17 11:24 [facility] (Rec: 11/09/17 11:30 [facility] [email or web address]) OP-PT Subjective Patient Comments Patient Comments Neetu is doing really well today and nerve pain has calmed down again. She did end up purchasing some pants with a less tight waist band and she feels this is helping PT-OP-K Range of Motion Start: 09/07/17 14:28 Freq: Status: Active Protocol: Document 10/27/17 13:35 [facility] (Rec: 10/27/17 13:36 [facility] [email or web address]) Hip Goniometric Range of Motion Hip Measured in Degrees Right Hip ROM WFL Yes Left Hip ROM WFL Yes PT-OP-Q Treatments Start: 09/07/17 14:28 Freq: Status: Active Protocol: Document 11/09/17 11:24 [facility] (Rec: 11/09/17 11:30 [facility] [email or web address]) Therapeutic Exercises Supine Exercises 5 Supine Exercise Name lower extremity stretches Comments SKTC, hamstrings, piriformis, hip flexor, ITB Other Exercises 4 Other Exercise Name core stabilization exercises in quadraped including OA lifts, OL lifts, OAL Comments worked also on just TA facilitation in quadraped 3 Other Exercise Name down dog stretch 2 Other Exercise Name quadraped cat cow, sidebends, thoracic rotation 1 Other Exercise Name danie pose PT-OP-R Modalities Start: 09/07/17 14:28 Freq: Status: Active Protocol: Document 11/04/17 19:00 [facility] (Rec: 11/04/17 19:00 [facility] [email or web address]) Ultrasound Therapy Treatment left sacral REBECA muscular attachments Patient Position Prone Coupling Medium Ultrasound Gel Applicator Size (cm2) 5 Mode Setting Continuous Duty Cycle 100% Comments 1.5 PT-OP-T Assessment and Plan Start: 09/07/17 14:28 Freq: Status: Active Protocol: Document 11/09/17 11:24 [facility] (Rec: 11/09/17 11:30 [facility] [email or web address]) Physical Therapy Assessment Assessment Summary Assessment Decreased sensitivity today in the SI joint region. Neetu felt okay to work on stretches and lumbar stabilization exercises. She is switching from 10 hours days to 8 and also changed her mattress which may have helped her. Physical Therapy Plan Frequency and Duration Frequency of Treatment 2x/Week Duration of Treatment 2 months Plan of Care Start Date 08/26/17 Plan of Care End Date 10/25/17 Therapeutic Interventions Therapeutic Interventions Home Exercise Program Manual Therapy Neuromuscular Re-education Self-Care/Home Management Soft Tissue Mobilization Taping Therapeutic Exercises Next Visit Focus/Plan Next Note Type Treatment Note Next Visit Plan progress under current plan of care and emphasize SI stability and alignment. Recheck sacral alignment next visit. Neetu will also try self MFR with two tennis balls on either side of REBECA's for self correction of sacral counter nutation
--- NOTE | 2017-11-16 17:26 | PT.OTN ---
Current Diagnoses Crushing injury of abdomen, lower back, and pelvis, subsequent encounter (11/16/17) Physical Therapy Treatment Note PT-OP-A Visit Information Start: 09/07/17 14:28 Freq: Status: Active Protocol: Document 11/16/17 09:00 AMH (Rec: 11/16/17 17:25 AMH [email or web address]) Out-Patient Physical Therapy Visit Information Visit Information Visit Type Treatment Note Visit Start Time 13:00 Visit Stop Time 13:45 Total Visit Minutes 45 Visit Number 74 Number of PRESERVATIONIST Visits 0 PT-OP-C Subjective Start: 09/07/17 14:28 Freq: Status: Active Protocol: Document 11/16/17 09:00 AMH (Rec: 11/16/17 17:25 AMH [email or web address]) OP-PT Subjective Patient Comments Patient Comments Neetu reports she is stiff/sore but has been trying to do body flow classes at the gym. She does note some of the nerve irritation on the left side of her SI joint today PT-OP-K Range of Motion Start: 09/07/17 14:28 Freq: Status: Active Protocol: Document 10/27/17 13:35 AMH (Rec: 10/27/17 13:36 AMH [email or web address]) Hip Goniometric Range of Motion Hip Measured in Degrees Right Hip ROM WFL Yes Left Hip ROM WFL Yes PT-OP-Q Treatments Start: 09/07/17 14:28 Freq: Status: Active Protocol: Document 11/16/17 09:00 AMH (Rec: 11/16/17 17:25 AMH [email or web address]) Manual Therapy Treatment Soft Tissue Mobilization 4 Body Location lumbar paraspinals Mobilization Type Myofascial Release Rolling Intensity/Depth Moderate Body Position Prone Joint Mobilizations 3 Joint posterior rotation of the left SI joint manual technique 1 Joint sacral counter nutation Grade II Body Position Prone Manual Techniques 1 Type manual stretching of the iliopsoas musculatre Comments in mundo test position PT-OP-R Modalities Start: 09/07/17 14:28 Freq: Status: Active Protocol: Document 11/04/17 19:00 AMH (Rec: 11/04/17 19:00 AMH [email or web address]) Ultrasound Therapy Treatment left sacral REBECA muscular attachments Patient Position Prone Coupling Medium Ultrasound Gel Applicator Size (cm2) 5 Mode Setting Continuous Duty Cycle 100% Comments 1.5 PT-OP-T Assessment and Plan Start: 09/07/17 14:28 Freq: Status: Active Protocol: Document 11/16/17 09:00 AMH (Rec: 11/16/17 17:25 AMH [email or web address]) Physical Therapy Assessment Assessment Summary Assessment worked on manual alignment today as Neetu was presenting with left leg longer in supine and felt left sided SI discomfort today Physical Therapy Plan Frequency and Duration Frequency of Treatment 2x/Week Duration of Treatment 2 months Plan of Care Start Date 08/26/17 Plan of Care End Date 10/25/17 Therapeutic Interventions Therapeutic Interventions Home Exercise Program Manual Therapy Neuromuscular Re-education Self-Care/Home Management Soft Tissue Mobilization Taping Therapeutic Exercises Next Visit Focus/Plan Next Note Type Treatment Note Next Visit Plan progress under current plan of care
--- NOTE | 2017-11-23 14:16 | PT.OTN ---
Current Diagnoses Crushing injury of abdomen, lower back, and pelvis, subsequent encounter (11/23/17) Physical Therapy Treatment Note PT-OP-A Visit Information Start: 09/07/17 14:28 Freq: Status: Active Protocol: Document 11/23/17 14:00 AMH (Rec: 11/23/17 14:15 AMH [email or web address]) Out-Patient Physical Therapy Visit Information Visit Information Visit Type Treatment Note Visit Start Time 09:00 Visit Stop Time 09:45 Total Visit Minutes 45 Visit Number 75 Number of PROPOSAL CONSULTANT Visits 0 PT-OP-C Subjective Start: 09/07/17 14:28 Freq: Status: Active Protocol: Document 11/23/17 14:00 AMH (Rec: 11/23/17 14:15 AMH [email or web address]) OP-PT Subjective Patient Comments Patient Comments Symptoms today are improved overall, still feeling the nerve symptoms over the left SI joint. Neetu reports she has been able to do three body flow classes without increased pain. PT-OP-K Range of Motion Start: 09/07/17 14:28 Freq: Status: Active Protocol: Document 10/27/17 13:35 AMH (Rec: 10/27/17 13:36 AMH [email or web address]) Hip Goniometric Range of Motion Hip Measured in Degrees Right Hip ROM WFL Yes Left Hip ROM WFL Yes PT-OP-Q Treatments Start: 09/07/17 14:28 Freq: Status: Active Protocol: Document 11/16/17 09:00 AMH (Rec: 11/16/17 17:25 AMH [email or web address]) Manual Therapy Treatment Soft Tissue Mobilization 4 Body Location lumbar paraspinals Mobilization Type Myofascial Release Rolling Intensity/Depth Moderate Body Position Prone Joint Mobilizations 3 Joint posterior rotation of the left SI joint manual technique 1 Joint sacral counter nutation Grade II Body Position Prone Manual Techniques 1 Type manual stretching of the iliopsoas musculatre Comments in mundo test position PT-OP-R Modalities Start: 09/07/17 14:28 Freq: Status: Active Protocol: Document 11/23/17 14:15 AMH (Rec: 11/23/17 14:16 AMH [email or web address]) Ultrasound Therapy Treatment left sacral REBECA muscular attachments Patient Position Prone Coupling Medium Ultrasound Gel Mode Setting Continuous Duty Cycle 100% Intensity Setting (w/cm2) 1.5 PT-OP-T Assessment and Plan Start: 09/07/17 14:28 Freq: Status: Active Protocol: Document 11/23/17 14:00 AMH (Rec: 11/23/17 14:15 AMH [email or web address]) Physical Therapy Assessment Assessment Summary Assessment equal leg length today and improved stability of the SI joint. Still noting the nerve symptoms and cortisone may really help this region. Physical Therapy Plan Frequency and Duration Frequency of Treatment 2x/Week Duration of Treatment 2 months Plan of Care Start Date 08/26/17 Plan of Care End Date 10/25/17 Therapeutic Interventions Therapeutic Interventions Home Exercise Program Manual Therapy Neuromuscular Re-education Self-Care/Home Management Soft Tissue Mobilization Taping Therapeutic Exercises Next Visit Focus/Plan Next Note Type Treatment Note Next Visit Plan progress under current plan of care
--- NOTE | 2017-11-30 12:18 | PT.OTN ---
Current Diagnoses Crushing injury of abdomen, lower back, and pelvis, subsequent encounter (11/30/17) Physical Therapy Treatment Note PT-OP-A Visit Information Start: 09/07/17 14:28 Freq: Status: Active Protocol: Document 11/30/17 09:10 AMH (Rec: 11/30/17 12:16 AMH [email or web address]) Out-Patient Physical Therapy Visit Information Visit Information Visit Type Treatment Note Visit Start Time 09:10 Visit Stop Time 09:50 Total Visit Minutes 40 Visit Number 76 Number of DRAMA PROFESSOR Visits 0 PT-OP-C Subjective Start: 09/07/17 14:28 Freq: Status: Active Protocol: Document 11/30/17 09:10 AMH (Rec: 11/30/17 12:16 AMH [email or web address]) OP-PT Subjective Patient Comments Patient Comments Neetu reports she is continuing to see progress as she has been able to do yoga but she does feel a lot of popping in her pelvis. Today she feels shifted in her joint some. PT-OP-K Range of Motion Start: 09/07/17 14:28 Freq: Status: Active Protocol: Document 10/27/17 13:35 AMH (Rec: 10/27/17 13:36 AMH [email or web address]) Hip Goniometric Range of Motion Hip Measured in Degrees Right Hip ROM WFL Yes Left Hip ROM WFL Yes PT-OP-Q Treatments Start: 09/07/17 14:28 Freq: Status: Active Protocol: Document 11/30/17 09:00 AMH (Rec: 11/30/17 12:18 AMH [email or web address]) Manual Therapy Treatment Soft Tissue Mobilization 4 Body Location lumbar paraspinals Mobilization Type Myofascial Release Rolling Intensity/Depth Moderate Body Position Prone 2 Body Location Left glute Mobilization Type Myofascial Release Rolling Sustained Pressure Intensity/Depth Deep Body Position Prone 1 Body Location MET left pubic upslip Mobilization Type Other Body Position Supine Joint Mobilizations 1 Joint sacral counter nutation Grade II Body Position Prone PT-OP-R Modalities Start: 09/07/17 14:28 Freq: Status: Active Protocol: Document 11/30/17 09:10 AMH (Rec: 11/30/17 12:16 AMH [email or web address]) Ultrasound Therapy Treatment left sacral REBECA muscular attachments Patient Position Prone Coupling Medium Ultrasound Gel Mode Setting Continuous Duty Cycle 100% Intensity Setting (w/cm2) 1.5 PT-OP-T Assessment and Plan Start: 09/07/17 14:28 Freq: Status: Active Protocol: Document 11/30/17 09:10 AMH (Rec: 11/30/17 12:16 AMH [email or web address]) Physical Therapy Assessment Assessment Summary Assessment left pubic upshift today but corrected well with Manual therapy techniques Physical Therapy Plan Frequency and Duration Frequency of Treatment 2x/Week Duration of Treatment 2 months Plan of Care Start Date 10/26/17 Plan of Care End Date 12/25/17 Therapeutic Interventions Therapeutic Interventions Home Exercise Program Manual Therapy Neuromuscular Re-education Self-Care/Home Management Soft Tissue Mobilization Taping Therapeutic Exercises Next Visit Focus/Plan Next Note Type Treatment Note Next Visit Plan progress under current plan of care
--- NOTE | 2017-12-07 13:45 | PT.OTN ---
Current Diagnoses Crushing injury of abdomen, lower back, and pelvis, subsequent encounter (12/07/17) Physical Therapy Treatment Note PT-OP-A Visit Information Start: 09/07/17 14:28 Freq: Status: Active Protocol: Document 12/07/17 13:36 AMH (Rec: 12/07/17 13:43 AMH [email or web address]) Out-Patient Physical Therapy Visit Information Visit Information Visit Type Treatment Note Visit Start Time 09:00 Visit Stop Time 09:45 Total Visit Minutes 45 Visit Number 77 Number of CAUSTIC CRESYLATE SHIFT SUPERINTENDENT Visits 0 PT-OP-C Subjective Start: 09/07/17 14:28 Freq: Status: Active Protocol: Document 12/07/17 13:36 AMH (Rec: 12/07/17 13:43 AMH [email or web address]) OP-PT Subjective Patient Comments Patient Comments Neetu reports she worked a 11 hour shift yesterday and got home at 1 am. She is feeling right sided heel pain again and could feel at work last night that she was close to straining her right SI joint. She was glad she was tuned in with her body to know to stop the aggravating activity. PT-OP-K Range of Motion Start: 09/07/17 14:28 Freq: Status: Active Protocol: Document 10/27/17 13:35 AMH (Rec: 10/27/17 13:36 AMH [email or web address]) Hip Goniometric Range of Motion Hip Measured in Degrees Right Hip ROM WFL Yes Left Hip ROM WFL Yes PT-OP-Q Treatments Start: 09/07/17 14:28 Freq: Status: Active Protocol: Document 12/07/17 13:43 AMH (Rec: 12/07/17 13:45 AMH [email or web address]) Therapeutic Exercises Supine Exercises 6 Supine Exercise Name TA brace in hooklying Reps/Minutes 5 second hold in supine 5 Supine Exercise Name lower extremity stretches Comments SKTC, hamstrings, piriformis, hip flexor, ITB 2 Supine Exercise Name abdominal stabilization with resistance at arms and knees Reps/Minutes x 10 reps 1 Supine Exercise Name adductor squeeze Reps/Minutes 10 x 5 second hold Manual Therapy Treatment Soft Tissue Mobilization 4 Body Location lumbar paraspinals Mobilization Type Myofascial Release Rolling Intensity/Depth Moderate Body Position Prone 2 Body Location Left glute Mobilization Type Myofascial Release Rolling Sustained Pressure Intensity/Depth Deep Body Position Prone 1 Body Location MET left pubic upslip Mobilization Type Other Body Position Supine PT-OP-R Modalities Start: 09/07/17 14:28 Freq: Status: Active Protocol: Document 11/30/17 09:10 AMH (Rec: 11/30/17 12:16 AMH [email or web address]) Ultrasound Therapy Treatment left sacral REBECA muscular attachments Patient Position Prone Coupling Medium Ultrasound Gel Mode Setting Continuous Duty Cycle 100% Intensity Setting (w/cm2) 1.5 PT-OP-T Assessment and Plan Start: 09/07/17 14:28 Freq: Status: Active Protocol: Document 12/07/17 13:36 AMH (Rec: 12/07/17 13:43 AMH [email or web address]) Physical Therapy Assessment Assessment Summary Assessment right pubic upslip today corrected with manual therapy technique. SI joint is still easily shifted with activity. Neetu does see Dr. Kohler today for a cortisone injection into the left facet joints L4- 5 Physical Therapy Plan Frequency and Duration Frequency of Treatment 2x/Week Duration of Treatment 2 months Plan of Care Start Date 10/26/17 Plan of Care End Date 12/25/17 Therapeutic Interventions Therapeutic Interventions Home Exercise Program Manual Therapy Neuromuscular Re-education Self-Care/Home Management Soft Tissue Mobilization Taping Therapeutic Exercises Next Visit Focus/Plan Next Note Type Treatment Note Next Visit Plan progress under current plan of care
--- NOTE | 2017-12-14 15:48 | PT.OTN ---
Current Diagnoses Crushing injury of abdomen, lower back, and pelvis, subsequent encounter (12/14/17) Physical Therapy Treatment Note PT-OP-A Visit Information Start: 09/07/17 14:28 Freq: Status: Active Protocol: Document 12/14/17 09:45 GGD (Rec: 12/14/17 15:48 GGD [email or web address]) Out-Patient Physical Therapy Visit Information Visit Information Visit Type Treatment Note Visit Start Time 09:45 Visit Stop Time 10:30 Total Visit Minutes 45 Visit Number 78 Number of FLOOR BROKER Visits 1 PT-OP-C Subjective Start: 09/07/17 14:28 Freq: Status: Active Protocol: Document 12/14/17 09:45 GGD (Rec: 12/14/17 15:48 GGD [email or web address]) OP-PT Subjective Patient Comments Patient Comments PT states that she feels unstable and having pain mostly in lower back upper SI. PT-OP-K Range of Motion Start: 09/07/17 14:28 Freq: Status: Active Protocol: Document 10/27/17 13:35 AMH (Rec: 10/27/17 13:36 AMH [email or web address]) Hip Goniometric Range of Motion Hip Measured in Degrees Right Hip ROM WFL Yes Left Hip ROM WFL Yes PT-OP-Q Treatments Start: 09/07/17 14:28 Freq: Status: Active Protocol: Document 12/14/17 09:45 GGD (Rec: 12/14/17 15:48 GGD [email or web address]) Therapeutic Exercises Supine Exercises 7 Supine Exercise Name hands on knees push Reps/Minutes 4 5 Supine Exercise Name lower extremity stretches Comments SKTC, hamstrings, piriformis, hip flexor, ITB 2 Supine Exercise Name abdominal stabilization with resistance at arms and knees Reps/Minutes x 10 reps Manual Therapy Treatment Soft Tissue Mobilization 4 Body Location lumbar paraspinals Mobilization Type Myofascial Release Rolling Intensity/Depth Moderate Body Position Prone 2 Body Location Left glute Mobilization Type Myofascial Release Rolling Sustained Pressure Intensity/Depth Deep Body Position Prone 1 Body Location MET left pubic upslip Mobilization Type Other Body Position Supine PT-OP-R Modalities Start: 09/07/17 14:28 Freq: Status: Active Protocol: Document 12/14/17 09:45 GGD (Rec: 12/14/17 15:48 GGD [email or web address]) Ultrasound Therapy Treatment left sacral REBECA muscular attachments Patient Position Prone Coupling Medium Ultrasound Gel Mode Setting Continuous Duty Cycle 100% Intensity Setting (w/cm2) 1.5 PT-OP-T Assessment and Plan Start: 09/07/17 14:28 Freq: Status: Active Protocol: Document 12/14/17 09:45 GGD (Rec: 12/14/17 15:48 GGD [email or web address]) Physical Therapy Assessment Assessment Summary Assessment Pt had decrease pain after ranjit therapy to correct pubic upslip. She improving with core activations. Physical Therapy Plan Frequency and Duration Frequency of Treatment 2x/Week Duration of Treatment 2 months Plan of Care Start Date 10/26/17 Plan of Care End Date 12/25/17 Next Visit Focus/Plan Next Note Type Treatment Note Next Visit Plan progress under current plan of care
--- NOTE | 2017-12-21 16:48 | PT.OTN ---
Current Diagnoses Crushing injury of abdomen, lower back, and pelvis, subsequent encounter (12/21/17) Physical Therapy Treatment Note PT-OP-A Visit Information Start: 09/07/17 14:28 Freq: Status: Active Protocol: Document 12/21/17 12:00 GGD (Rec: 12/21/17 16:48 GGD [email or web address]) Out-Patient Physical Therapy Visit Information Visit Information Visit Type Treatment Note Visit Start Time 12:00 Visit Stop Time 12:45 Total Visit Minutes 45 Visit Number 79 Number of INTERNET MARKETING DIRECTOR Visits 2 PT-OP-C Subjective Start: 09/07/17 14:28 Freq: Status: Active Protocol: Document 12/21/17 12:00 GGD (Rec: 12/21/17 16:48 GGD [email or web address]) OP-PT Subjective Patient Comments Patient Comments Pt states that the injection didn't help and she feels unstable with increase in pain . PT-OP-K Range of Motion Start: 09/07/17 14:28 Freq: Status: Active Protocol: Document 10/27/17 13:35 AMH (Rec: 10/27/17 13:36 AMH [email or web address]) Hip Goniometric Range of Motion Hip Measured in Degrees Right Hip ROM WFL Yes Left Hip ROM WFL Yes PT-OP-Q Treatments Start: 09/07/17 14:28 Freq: Status: Active Protocol: Document 12/21/17 12:00 GGD (Rec: 12/21/17 16:48 GGD [email or web address]) Therapeutic Exercises Supine Exercises 7 Supine Exercise Name hands on knees push Reps/Minutes 4 5 Supine Exercise Name lower extremity stretches Comments SKTC, hamstrings, piriformis, hip flexor, ITB 2 Supine Exercise Name abdominal stabilization with resistance at arms and knees Reps/Minutes x 10 reps Manual Therapy Treatment Soft Tissue Mobilization 4 Body Location lumbar paraspinals Mobilization Type Myofascial Release Rolling Intensity/Depth Moderate Body Position Prone 2 Body Location Left glute Mobilization Type Myofascial Release Rolling Sustained Pressure Intensity/Depth Deep Body Position Prone 1 Body Location MET left pubic upslip Mobilization Type Other Body Position Supine PT-OP-R Modalities Start: 09/07/17 14:28 Freq: Status: Active Protocol: Document 12/21/17 12:00 GGD (Rec: 12/21/17 16:48 GGD [email or web address]) Ultrasound Therapy Treatment left sacral REBECA muscular attachments Patient Position Prone Coupling Medium Ultrasound Gel Mode Setting Continuous Duty Cycle 100% Intensity Setting (w/cm2) 1.5 PT-OP-T Assessment and Plan Start: 09/07/17 14:28 Freq: Status: Active Protocol: Document 12/21/17 12:00 GGD (Rec: 12/21/17 16:48 GGD [email or web address]) Physical Therapy Assessment Assessment Summary Assessment Pt need cues for core exercise . She did have decrease in c/O pain after ranjit therapy. Physical Therapy Plan Frequency and Duration Frequency of Treatment 2x/Week Duration of Treatment 2 months Plan of Care Start Date 10/26/17 Plan of Care End Date 12/25/17 Next Visit Focus/Plan Next Note Type Treatment Note Next Visit Plan progress under current plan of care
--- NOTE | 2017-12-28 13:26 | PT.OTN ---
Current Diagnoses Crushing injury of abdomen, lower back, and pelvis, subsequent encounter (12/28/17) Physical Therapy Treatment Note PT-OP-A Visit Information Start: 09/07/17 14:28 Freq: Status: Active Protocol: Document 12/28/17 13:10 AMH (Rec: 12/28/17 13:18 AMH [email or web address]) Out-Patient Physical Therapy Visit Information Visit Information Visit Type Treatment Note Visit Start Time 09:00 Visit Stop Time 09:45 Total Visit Minutes 45 Visit Number 80 Number of FREELANCE PATTERNMAKER Visits 0 PT-OP-C Subjective Start: 09/07/17 14:28 Freq: Status: Active Protocol: Document 12/28/17 13:10 AMH (Rec: 12/28/17 13:18 AMH [email or web address]) OP-PT Subjective Patient Comments Patient Comments Neetu reports her low back is feeling less nervy Overall she is feeling hopeful that she is doing better. She discussing prolotherapy options PT-OP-K Range of Motion Start: 09/07/17 14:28 Freq: Status: Active Protocol: Document 10/27/17 13:35 AMH (Rec: 10/27/17 13:36 AMH [email or web address]) Hip Goniometric Range of Motion Hip Measured in Degrees Right Hip ROM WFL Yes Left Hip ROM WFL Yes PT-OP-Q Treatments Start: 09/07/17 14:28 Freq: Status: Active Protocol: Document 12/28/17 13:10 AMH (Rec: 12/28/17 13:18 AMH [email or web address]) Manual Therapy Treatment Soft Tissue Mobilization 4 Body Location lumbar paraspinals Mobilization Type Myofascial Release Rolling Intensity/Depth Moderate Body Position Prone 2 Body Location Left glute Mobilization Type Myofascial Release Rolling Sustained Pressure Intensity/Depth Deep Body Position Prone Joint Mobilizations 1 Joint sacral mobilization into counter nutation Manual Techniques 1 Type manual iliopsoas stretch Comments in mundo test position bilaterally PT-OP-R Modalities Start: 09/07/17 14:28 Freq: Status: Active Protocol: Document 12/21/17 12:00 GGD (Rec: 12/21/17 16:48 GGD [email or web address]) Ultrasound Therapy Treatment left sacral REBECA muscular attachments Patient Position Prone Coupling Medium Ultrasound Gel Mode Setting Continuous Duty Cycle 100% Intensity Setting (w/cm2) 1.5 PT-OP-T Assessment and Plan Start: 09/07/17 14:28 Freq: Status: Active Protocol: Document 12/28/17 13:10 AMH (Rec: 12/28/17 13:18 AMH [email or web address]) Physical Therapy Assessment Assessment Summary Assessment decreased overall pain today, still presenting with pelvis popping a lot but pain levels decreased. She is a good candidate for prolotherapy. Physical Therapy Plan Frequency and Duration Frequency of Treatment 2x/Week Duration of Treatment 2 months Plan of Care Start Date 10/26/17 Plan of Care End Date 01/04/18 Therapeutic Interventions Therapeutic Interventions Home Exercise Program Manual Therapy Neuromuscular Re-education Self-Care/Home Management Soft Tissue Mobilization Taping Therapeutic Exercises Next Visit Focus/Plan Next Note Type Treatment Note Next Visit Plan continue for 1 visit then DC to independent HEP
--- NOTE | 2018-01-04 12:14 | PT.OTN ---
Current Diagnoses Crushing injury of abdomen, lower back, and pelvis, subsequent encounter (01/04/18) Physical Therapy Treatment Note PT-OP-A Visit Information Start: 09/07/17 14:28 Freq: Status: Active Protocol: Document 01/04/18 09:45 GGD (Rec: 01/04/18 12:14 GGD [email or web address]) Out-Patient Physical Therapy Visit Information Visit Information Visit Type Treatment Note Visit Start Time 09:00 Visit Stop Time 09:45 Total Visit Minutes 45 Visit Number 81 Number of STAFF RESEARCH SCIENTIST Visits 1 PT-OP-C Subjective Start: 09/07/17 14:28 Freq: Status: Active Protocol: Document 01/04/18 09:45 GGD (Rec: 01/04/18 12:14 GGD [email or web address]) OP-PT Subjective Patient Comments Patient Comments Pt states she feeling better and having less pain. She has been increasing her flexibilty exercise. PT-OP-K Range of Motion Start: 09/07/17 14:28 Freq: Status: Active Protocol: Document 10/27/17 13:35 AMH (Rec: 10/27/17 13:36 AMH [email or web address]) Hip Goniometric Range of Motion Hip Measured in Degrees Right Hip ROM WFL Yes Left Hip ROM WFL Yes PT-OP-Q Treatments Start: 09/07/17 14:28 Freq: Status: Active Protocol: Document 01/04/18 09:45 GGD (Rec: 01/04/18 12:14 GGD [email or web address]) Manual Therapy Treatment Soft Tissue Mobilization 4 Body Location lumbar paraspinals Mobilization Type Myofascial Release Rolling Intensity/Depth Moderate Body Position Prone 2 Body Location Left glute Mobilization Type Myofascial Release Rolling Sustained Pressure Intensity/Depth Deep Body Position Prone Joint Mobilizations 1 Joint sacral mobilization into counter nutation Manual Techniques 1 Type manual iliopsoas stretch Comments in mundo test position bilaterally PT-OP-R Modalities Start: 09/07/17 14:28 Freq: Status: Active Protocol: Document 12/21/17 12:00 GGD (Rec: 12/21/17 16:48 GGD [email or web address]) Ultrasound Therapy Treatment left sacral REBECA muscular attachments Patient Position Prone Coupling Medium Ultrasound Gel Mode Setting Continuous Duty Cycle 100% Intensity Setting (w/cm2) 1.5 PT-OP-T Assessment and Plan Start: 09/07/17 14:28 Freq: Status: Active Protocol: Document 01/04/18 09:45 GGD (Rec: 01/04/18 12:14 GGD [email or web address]) Physical Therapy Assessment Assessment Summary Assessment Pt is improving flexibilty. She is tender to glute and hamstrings. Physical Therapy Plan Frequency and Duration Frequency of Treatment 2x/Week Duration of Treatment 2 months Plan of Care Start Date 10/26/17 Plan of Care End Date 01/04/18 Therapeutic Interventions Therapeutic Interventions Home Exercise Program Manual Therapy Neuromuscular Re-education Self-Care/Home Management Soft Tissue Mobilization Taping Therapeutic Exercises Discharge Physical Therapy Discharge Reasons Goals Met
--- NOTE | 2018-04-07 16:19 | PT.OPDS ---
Current Diagnoses Crushing injury of abdomen, lower back, and pelvis, subsequent encounter (01/04/18) Provider Visit Care Team Role Provider Type Mei Sun PA-C Attending Provider Advanced Oxygen Therapy Teacher Family Provider Primary Care Provider Specialty: Internal Medicine Address: [address] [place] [address], [id number] Email: Visit Number Visit Number 05/19 Discharge Summary PT-OP-B Current Condition Start: 09/07/17 14:28 Freq: Status: Active Protocol: Document 03/14/18 17:59 ML (Rec: 03/14/18 18:34 ML [email or web address]) Current Condition History of Current Condition Current Complaints R SI pain and L SI instability History of Current Condition Pt reports of R SI pain and continued L SI instability since her last sessions of PT. The pt noted that she was feeling better, but the pain has returned and she still feels instability through her pelvis, especially since she has changed jobs ambulating about 15 miles a day at work rather than the 5 miles she was doing. The pt said the pain is always constant, fluctuating between a 2/10 when it is feeling good and a 6/10 on average. The pt finds some releif with rest, stretching, going into position, and using ice or heat (depending on the day). The pt also notes that the pain keeps her up at night despite her efforts for position change. Sometimes this is in addition to her legs feeling restless, especially after long days when she begins to rest her body by sitting or going to bed. The pt also notes she is unable to participate sexually without pain, especially in an abducted position. 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 The pt is scheduled for a pre- appointment for prolotherapy on 03/25/18 and plans to continue PT after receiving that treatment, for her lack of stabilizing scar tissue on her L side. The pt greatly desires to be active again and find pain relieve from her current condition. Treatment Goals Patient/Caregiver Goals dec pain and activity of many kinds (skiing, hiking, running , gardening, snowshoeing, yoga , etc.) PT-OP-C Subjective Start: 09/07/17 14:28 Freq: Status: Active Protocol: Document 03/14/18 17:59 ML (Rec: 03/14/18 18:34 ML [email or web address]) OP-PT Subjective Patient Comments Patient Comments Pt notes that things have really gotten worse with her new job position, but was able to take two weeks vacation since the transition so has only been on this schedule for about 1 week. Patient Reported Progress Worse OP-PT Pain Assessment Location L SI Description- Other medial to lateral upon palpation Pain Duration only to touch Radiating Location low back on L to L side in a horizontal line R SI Intensity 6 Scale Used Numeric (1 - 10) PT-OP-F Manual Assessment Start: 03/15/18 08:43 Freq: Status: Active Protocol: Document 03/14/18 17:59 ML (Rec: 03/15/18 08:49 ML [email or web address]) Manual Assessments Soft Tissue Assessment Soft Tissue Mobility Assessment L SI region radiates laterally to lateral trunk in horizontal pattern with very light touch Joint Mobility Assessment Joint Mobility Assessment R inominate compression creates relief; L inominate compression cases R pain; bilateral compression laterally on iliac crests creates pain on R posteriorly; dec L inominate motion in ext ; passive hip flexion motion assessments presents with poor timing of her L side ( mobility of sacrum and inominate move together at 90 and lumbar moves at 110) PT-OP-G Mobility & Gait Start: 03/15/18 08:49 Freq: Status: Active Protocol: Document 03/14/18 17:59 ML (Rec: 03/15/18 08:53 ML [email or web address]) OP Gait Assessment Comments Gait Comments Pt initates gait with lat trunk lean and ambulates with very little trunk or pelvis motion PT-OP-J Posture/Palpation/Skin Start: 03/15/18 08:49 Freq: Status: Active Protocol: Document 03/14/18 17:59 ML (Rec: 03/15/18 08:53 ML [email or web address]) Posture Evaluation Ruslan Postural Classification System Ruslan Postural Classifications Anterior/Posterior Vertebral Compression Test 0 Elbow Flexion Test 0 Lumbar Protective Mechanism Left AP 0 Lumbar Protective Mechanism Right AP 0 Lumbar Protective Mechanism Left PA 0 Lumbar Protective Mechanism Right PA 0 PT-OP-K Range of Motion Start: 09/07/17 14:28 Freq: Status: Active Protocol: Document 10/27/17 13:35 AMH (Rec: 10/27/17 13:36 AMH [email or web address]) Hip Goniometric Range of Motion Hip Measured in Degrees Right Hip ROM WFL Yes Left Hip ROM WFL Yes PT-OP-M Strength Start: 09/07/17 14:28 Freq: Status: Active Protocol: Document 03/14/18 17:59 ML (Rec: 03/15/18 08:43 ML [email or web address]) Hip Strength Hip Manual Muscle Testing L Flexion (L2) 3+ Fair+ Extension (S1) 4 Good Abduction 3+ Fair+ External Rotation 4- Good- Internal Rotation 3+ Fair+ R Flexion (L2) 4 Good Extension (S1) 4 Good Abduction 4- Good- External Rotation 4- Good- Internal Rotation 3+ Fair+ Knee Strength Knee Manual Muscle Testing L Flexion (S2) 4 Good Extension (L3) 4 Good R Flexion (S2) 3+ Fair+ Extension (L3) 4- Good- Ankle/Foot Strength Ankle and Foot Manual Muscle Testing L Dorsiflexion (L4) 4 Good Plantarflexion (S1) 4+ Good+ R Dorsiflexion (L4) 4 Good Plantarflexion (S1) 4+ Good+ PT-OP-T Assessment and Plan Start: 09/07/17 14:28 Freq: Status: Active Protocol: Document 03/14/18 17:59 ML (Rec: 03/14/18 18:34 ML [email or web address]) Physical Therapy Assessment Rehab Potential Rehabilitation Potential Good Evaluation Complexity Number of Personal Factors/Comorbidities 1-2 Number of Body Systems Impaired 4 or More Clinical Presentation at Evaluation Evolving Impairments Impairments Activity Tolerance Balance Functional Activities Functional Mobility Gait Pain Posture ROM Sensation Soft Tissue Mobility Strength Goals 2 Impairment dec strength Short Term Goal (STG) Pt will be independent with HEP in order to improve strength. STG Duration 04/13/18 Board Of Education Secretary Goal (LTG) Pt will have 4/5 strength in her LEs bilaterally in order to participate in physical activity. LTG Duration 05/14/18 1 Impairment pain Short Term Goal (STG) Pt's pain will dec in order for her to participate in yoga . STG Duration 04/13/18 Board Of Education Secretary Goal (LTG) Pt's pain will dec to 3/10 on average throughout her work day. LTG Duration 05/14/18 Assessment Summary Assessment Pt reported to PT after a long day of work with R SI pain, and indicating L SI instability. Pt is very sensitive to palpation on her L SI region causing radiating nerve pain to her L lateral trunk directly horizontal to palpation. The pt presents with weakness in her LEs bilaterally and has significant postural instability that was assessed through static postural tests. The pt reported pain posteriorly with SI compression test. She also noted relief of pain when compression was applied to either inominate in a prone position. She presents with antalgic gait and poor posture . Her posture was addressed, and the pt noted increased stability through examination when achieving the correct posture. Pt was instructed to work on her posture at home. Physical Therapy Plan Frequency and Duration Frequency of Treatment 2x/Week Duration of Treatment 2 months Plan of Care Start Date 04/13/18 Plan of Care End Date 05/14/18 Therapeutic Interventions Therapeutic Interventions Aquatic Therapy Balance Training Gait Training Home Exercise Program Joint Mobilizations Manual Therapy Neuromuscular Re-education Patient/Caregiver Education Self-Care/Home Management Soft Tissue Mobilization Taping Therapeutic Activities Therapeutic Exercises Modalities Biofeedback Cold Pack/Ice Massage Electric Stimulation Hot Packs Iontophoresis Traction- Mechanical Ultrasound Next Visit Focus/Plan Next Note Type Treatment Note Next Visit Plan review posture, gait, PNF, HEP (strengthening)
== END 2018-04-28 11:29 ==
LOC: PHYS 09:45
PROVIDERS: Family Provider Physician Assistant; PCP Physician Assistant; Visit Provider Physician Assistant
DX: S38.1XXD Crushing injury of abdomen, lower back, and pelvis, subsequent encounter (principal)
CPT/HCPCS: 97010; 97014; 97035; 97110; 97140; 97535; G0283

== ENCOUNTER → 2018-04-23 08:07 | Outpatient (CLI) | payer OTHER, SELFPAY ==
[2018-04-23 10:15] LABS: Add Manual Diff / Slide Review NO; Basophils Percent Auto 0.5 % (0-2); Eosinophils Percent Auto 1.5 % (2-4); Hematocrit 39.9 % (36-46); Hemoglobin 13.6 g/dL (12.0-16.0); Lymphocytes Percent Auto 46.1 % (25-40); Mean Corpuscular HGB Conc 34.1 % (30-36); Mean Corpuscular Hemoglobin 29.7 PG (26-34); Mean Corpuscular Volume 87.1 fL (80-100); Monocytes Percent Auto 6.9 % (3-14); Neutrophils Absolute Auto 2100 /uL (1500-7000); Platelet Count 207 X10^3/uL (150-400); Red Blood Cell Count 4.59 X10^6/uL (4.0-5.2); Red Cell Distribution Width 13.5 % (11.6-14.8); White Blood Cell Count 4.8 X10^3/uL (4.5-11.0)
[2018-04-23 10:39] LABS: Alanine Aminotransferase 37 IU/L (9-52); Albumin 4.5 g/dL (3.5-5.0); Albumin Globulin Ratio 1.7 (1.0-2.8); Alkaline Phosphatase 48 U/L (38-126); Aspartate Aminotransferase 23 IU/L (14-36); BUN Creatinine Ratio 16.7 (6-22); Bilirubin Total 0.3 mg/dL (0.2-1.3); Blood Urea Nitrogen 10 mg/dL (7-17); Calcium 9.6 mg/dL (8.4-10.2); Carbon Dioxide 28 mmol/L (22-32); Chloride 105 mmol/L (98-107); Cholesterol 230 mg/dL (140-199); Estimated Glomerular Filt Rate > 60.0 mL/min (>60); Globulin 2.7 g/dL (1.7-4.1); Glucose 99 mg/dL (70-100); HDL Cholesterol 54 mg/dL (40-60); HEMOLYSIS < 15 (0-50); LDL Cholesterol Calculated 154 mg/dL (<100); Sodium 144 mmol/L (137-145); Total Protein 7.2 g/dL (6.3-8.2); Triglycerides 110 mg/dL (35-150)
== END ==
PROVIDERS: Family Provider Physician Assistant; PCP Physician Assistant; Visit Provider Physician Assistant
DX: E78.5 Hyperlipidemia, unspecified (principal)
CPT/HCPCS: 36415; 80053; 80061; 85025

== ENCOUNTER 2018-06-30 10:30 | Outpatient (RCR) | payer OTHER, SELFPAY ==
--- NOTE | 2018-03-14 16:53 | PT.OPPOC ---
Current Diagnoses Other specified joint disorders, left hip (03/23/18) Crushing injury of abdomen, lower back, and pelvis, subsequent encounter (03/23/18) Provider Visit Care Team Role Provider Type Mei Sun PA-C Attending Provider Advanced Manager Business Operations Family Provider Primary Care Provider Specialty: Internal Medicine Address: [address] [place] [address], [id number] Email: Plan Of Care PT-OP-T Assessment and Plan Start: 03/14/18 09:32 Freq: Status: Active Protocol: Document 03/21/18 17:54 ML (Rec: 03/21/18 18:07 ML [email or web address]) Physical Therapy Assessment Goals 2 Impairment dec strength Short Term Goal (STG) Pt will be independent with HEP in order to improve strength. STG Duration 04/13/18 Multiskill Operator Goal (LTG) Pt will have 4/5 LE strength bilaterally in order to participate in physical activity. LTG Duration 05/14/18 1 Impairment pain Short Term Goal (STG) Pt's pain will dec in order for her to particiapte in yoga . STG Duration 04/13/18 Multiskill Operator Goal (LTG) Pt's pain will dec to 3/10 on average throughout her work day. LTG Duration 05/14/18 Assessment Summary Assessment Pt reported to PT after a long day of work with R SI pain, and indicating L SI instability. Pt is very sensitive to palpation on her L SI region causing radiating nerve pain to her L lateral trunk directly horizontal to palpation. The pt presents with weakness in her LEs bilaterally and has significant postural instability that was assessed through static postural tests. The pt reported pain posteriorly with SI compression test. She also noted relief of pain when compression was applied to either inominate in a prone position. She presents with antalgic gait and poor posture . Her posture was addressed, and the pt noted increased stability through examination when achieving the correct posture. Pt was instructed to work on her posture at home. Physical Therapy Plan Frequency and Duration Frequency of Treatment 2x/Week Duration of Treatment 2 months Plan of Care Start Date 03/14/18 Plan of Care End Date 05/14/18 Next Visit Focus/Plan Next Note Type Treatment Note Next Visit Plan Review HEP; PNF of R; posture in sitting and reassess standing; soft tissue ITB and back; hip and inominate mobilizations Plan of Care Dates Plan of Care Start Date 03/14/18 Plan of Care End Date 05/14/18 Please Sign and Return: I have reviewed this Plan of Care and certify that the skilled therapy services above are required to meet the patient?s needs. Physician Signature Date Printed Name and Credentials Clinical Instructor Signature Printed Name and Credentials
--- NOTE | 2018-03-14 18:19 | PT.OIE ---
Neetu Wilson Female : 1965 [facility]# [id number] 03/14/18 16:40 - PT OP Initial Evaluation by Sherrie Goldberg PT Acct Num: [id number] : 1965 Patient Age: 52 Current Diagnoses Other specified joint disorders, left hip (03/14/18) Crushing injury of abdomen, lower back, and pelvis, subsequent encounter (03/14/18) Past Surgical History (Last Reviewed 12/30/17 @ 10:07 by Dereck Kohler DO) S/P hysterectomy (Resolved ~1997) Provider Visit Care Team Role Provider Type Mei Sun PA-C Attending Provider Advanced Laundry Aid Family Provider Primary Care Provider Specialty: Internal Medicine Address: [address] [place] [address], [facility] Email: Physical Therapy Initial Evaluation PT-OP-A Visit Information Start: 09/07/17 14:28 Freq: Status: Active Protocol: Document 03/14/18 17:59 ML (Rec: 03/14/18 18:34 ML [email or web address]) Out-Patient Physical Therapy Visit Information Visit Information Visit Type Initial Evaluation Visit Start Time 16:45 Visit Stop Time 17:35 Total Visit Minutes 50 Visit Number 1/ Number of SENIOR DOT NET DEVELOPER Visits 0 PT-OP-B Current Condition Start: 09/07/17 14:28 Freq: Status: Active Protocol: Document 03/14/18 17:59 ML (Rec: 03/14/18 18:34 ML [email or web address]) Current Condition History of Current Condition Current Complaints R SI pain and L SI instability History of Current Condition Pt reports of R SI pain and continued L SI instability since her last sessions of PT. The pt noted that she was feeling better, but the pain has returned and she still feels instability through her pelvis, especially since she has changed jobs ambulating about 15 miles a day at work rather than the 5 miles she was doing. The pt said the pain is always constant, fluctuating between a 2/10 when it is feeling good and a 6/10 on average. The pt finds some releif with rest, stretching, going into position, and using ice or heat (depending on the day). The pt also notes that the pain keeps her up at night despite her efforts for position change. Sometimes this is in addition to her legs feeling restless, especially after long days when she begins to rest her body by sitting or going to bed. The pt also notes she is unable to participate sexually without pain, especially in an abducted position. 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 The pt is scheduled for a pre- appointment for prolotherapy on 03/25/18 and plans to continue PT after receiving that treatment, for her lack of stabilizing scar tissue on her L side. The pt greatly desires to be active again and find pain relieve from her current condition. Treatment Goals Patient/Caregiver Goals dec pain and activity of many kinds (skiing, hiking, running , gardening, snowshoeing, yoga , etc.) PT-OP-C Subjective Start: 09/07/17 14:28 Freq: Status: Active Protocol: Document 03/14/18 17:59 ML (Rec: 03/14/18 18:34 ML [email or web address]) OP-PT Subjective Patient Comments Patient Comments Pt notes that things have really gotten worse with her new job position, but was able to take two weeks vacation since the transition so has only been on this schedule for about 1 week. Patient Reported Progress Worse OP-PT Pain Assessment Location L SI Description- Other medial to lateral upon palpation Pain Duration only to touch Radiating Location low back on L to L side in a horizontal line R SI Intensity 6 Scale Used Numeric (1 - 10) PT-OP-F Manual Assessment Start: 03/15/18 08:43 Freq: Status: Active Protocol: Document 03/14/18 17:59 ML (Rec: 03/15/18 08:49 ML [email or web address]) Manual Assessments Soft Tissue Assessment Soft Tissue Mobility Assessment L SI region radiates laterally to lateral trunk in horizontal pattern with very light touch Joint Mobility Assessment Joint Mobility Assessment R inominate compression creates relief; L inominate compression cases R pain; bilateral compression laterally on iliac crests creates pain on R posteriorly; dec L inominate motion in ext ; passive hip flexion motion assessments presents with poor timing of her L side ( mobility of sacrum and inominate move together at 90 and lumbar moves at 110) PT-OP-G Mobility & Gait Start: 03/15/18 08:49 Freq: Status: Active Protocol: Document 03/14/18 17:59 ML (Rec: 03/15/18 08:53 ML [email or web address]) OP Gait Assessment Comments Gait Comments Pt initates gait with lat trunk lean and ambulates with very little trunk or pelvis motion PT-OP-J Posture/Palpation/Skin Start: 03/15/18 08:49 Freq: Status: Active Protocol: Document 03/14/18 17:59 ML (Rec: 03/15/18 08:53 ML [email or web address]) Posture Evaluation [facility] Postural Classification System [facility] Postural Classifications Anterior/Posterior Vertebral Compression Test 0 Elbow Flexion Test 0 Lumbar Protective Mechanism Left AP 0 Lumbar Protective Mechanism Right AP 0 Lumbar Protective Mechanism Left PA 0 Lumbar Protective Mechanism Right PA 0 PT-OP-K Range of Motion Start: 09/07/17 14:28 Freq: Status: Active Protocol: Document 10/27/17 13:35 AMH (Rec: 10/27/17 13:36 AMH [email or web address]) Hip Goniometric Range of Motion Hip Measured in Degrees Right Hip ROM WFL Yes Left Hip ROM WFL Yes PT-OP-M Strength Start: 09/07/17 14:28 Freq: Status: Active Protocol: Document 03/14/18 17:59 ML (Rec: 03/15/18 08:43 ML [email or web address]) Hip Strength Hip Manual Muscle Testing L Flexion (L2) 3+ Fair+ Extension (S1) 4 Good Abduction 3+ Fair+ External Rotation 4- Good- Internal Rotation 3+ Fair+ R Flexion (L2) 4 Good Extension (S1) 4 Good Abduction 4- Good- External Rotation 4- Good- Internal Rotation 3+ Fair+ Knee Strength Knee Manual Muscle Testing L Flexion (S2) 4 Good Extension (L3) 4 Good R Flexion (S2) 3+ Fair+ Extension (L3) 4- Good- Ankle/Foot Strength Ankle and Foot Manual Muscle Testing L Dorsiflexion (L4) 4 Good Plantarflexion (S1) 4+ Good+ R Dorsiflexion (L4) 4 Good Plantarflexion (S1) 4+ Good+ PT-OP-Q Treatments Start: 09/07/17 14:28 Freq: Status: Active Protocol: Document 03/14/18 17:59 LRH (Rec: 03/15/18 16:39 LRH [email or web address]) Therapeutic Activity Therapeutic Activity Standing posture Name edu of standing posture PT-OP-R Modalities Start: 09/07/17 14:28 Freq: Status: Active Protocol: Document 12/21/17 12:00 GGD (Rec: 12/21/17 16:48 GGD [email or web address]) Ultrasound Therapy Treatment left sacral REBECA muscular attachments Patient Position Prone Coupling Medium Ultrasound Gel Mode Setting Continuous Duty Cycle 100% Intensity Setting (w/cm2) 1.5 PT-OP-T Assessment and Plan Start: 09/07/17 14:28 Freq: Status: Active Protocol: Document 03/14/18 17:59 ML (Rec: 03/14/18 18:34 ML [email or web address]) Physical Therapy Assessment Rehab Potential Rehabilitation Potential Good Evaluation Complexity Number of Personal Factors/Comorbidities 1-2 Number of Body Systems Impaired 4 or More Clinical Presentation at Evaluation Evolving Impairments Impairments Activity Tolerance Balance Functional Activities Functional Mobility Gait Pain Posture ROM Sensation Soft Tissue Mobility Strength Goals 2 Impairment dec strength Short Term Goal (STG) Pt will be independent with HEP in order to improve strength. STG Duration 04/13/18 Residential Goal (LTG) Pt will have 4/5 strength in her LEs bilaterally in order to participate in physical activity. LTG Duration 05/14/18 1 Impairment pain Short Term Goal (STG) Pt's pain will dec in order for her to participate in yoga . STG Duration 04/13/18 Residential Goal (LTG) Pt's pain will dec to 3/10 on average throughout her work day. LTG Duration 05/14/18 Assessment Summary Assessment Pt reported to PT after a long day of work with R SI pain, and indicating L SI instability. Pt is very sensitive to palpation on her L SI region causing radiating nerve pain to her L lateral trunk directly horizontal to palpation. The pt presents with weakness in her LEs bilaterally and has significant postural instability that was assessed through static postural tests. The pt reported pain posteriorly with SI compression test. She also noted relief of pain when compression was applied to either inominate in a prone position. She presents with antalgic gait and poor posture . Her posture was addressed, and the pt noted increased stability through examination when achieving the correct posture. Pt was instructed to work on her posture at home. Physical Therapy Plan Frequency and Duration Frequency of Treatment 2x/Week Duration of Treatment 2 months Plan of Care Start Date 04/13/18 Plan of Care End Date 05/14/18 Therapeutic Interventions Therapeutic Interventions Aquatic Therapy Balance Training Gait Training Home Exercise Program Joint Mobilizations Manual Therapy Neuromuscular Re-education Patient/Caregiver Education Self-Care/Home Management Soft Tissue Mobilization Taping Therapeutic Activities Therapeutic Exercises Modalities Biofeedback Cold Pack/Ice Massage Electric Stimulation Hot Packs Iontophoresis Traction- Mechanical Ultrasound Next Visit Focus/Plan Next Note Type Treatment Note Next Visit Plan review posture, gait, PNF, HEP (strengthening) Initialized on 03/15/18 16:40 - END OF NOTE
--- NOTE | 2018-03-15 16:40 | PT.OIE ---
Current Diagnoses Other specified joint disorders, left hip (03/14/18) Crushing injury of abdomen, lower back, and pelvis, subsequent encounter (03/14/18) Past Surgical History (Last Reviewed 12/30/17 @ 10:07 by Dereck Kohler DO) S/P hysterectomy (Resolved ~1997) Provider Visit Care Team Role Provider Type Mei Sun PA-C Attending Provider Advanced Irb Compliance Coordinator Family Provider Primary Care Provider Specialty: Internal Medicine Address: [address] [place] [address], [facility] Email: Physical Therapy Initial Evaluation PT-OP-A Visit Information Start: 09/07/17 14:28 Freq: Status: Active Protocol: Document 03/14/18 17:59 ML (Rec: 03/14/18 18:34 ML [email or web address]) Out-Patient Physical Therapy Visit Information Visit Information Visit Type Initial Evaluation Visit Start Time 16:45 Visit Stop Time 17:35 Total Visit Minutes 50 Visit Number 1/ Number of SPARERIBS TRIMMER Visits 0 PT-OP-B Current Condition Start: 09/07/17 14:28 Freq: Status: Active Protocol: Document 03/14/18 17:59 ML (Rec: 03/14/18 18:34 ML [email or web address]) Current Condition History of Current Condition Current Complaints R SI pain and L SI instability History of Current Condition Pt reports of R SI pain and continued L SI instability since her last sessions of PT. The pt noted that she was feeling better, but the pain has returned and she still feels instability through her pelvis, especially since she has changed jobs ambulating about 15 miles a day at work rather than the 5 miles she was doing. The pt said the pain is always constant, fluctuating between a 2/10 when it is feeling good and a 6/10 on average. The pt finds some releif with rest, stretching, going into position, and using ice or heat (depending on the day). The pt also notes that the pain keeps her up at night despite her efforts for position change. Sometimes this is in addition to her legs feeling restless, especially after long days when she begins to rest her body by sitting or going to bed. The pt also notes she is unable to participate sexually without pain, especially in an abducted position. 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 The pt is scheduled for a pre- appointment for prolotherapy on 03/25/18 and plans to continue PT after receiving that treatment, for her lack of stabilizing scar tissue on her L side. The pt greatly desires to be active again and find pain relieve from her current condition. Treatment Goals Patient/Caregiver Goals dec pain and activity of many kinds (skiing, hiking, running , gardening, snowshoeing, yoga , etc.) PT-OP-C Subjective Start: 09/07/17 14:28 Freq: Status: Active Protocol: Document 03/14/18 17:59 ML (Rec: 03/14/18 18:34 ML [email or web address]) OP-PT Subjective Patient Comments Patient Comments Pt notes that things have really gotten worse with her new job position, but was able to take two weeks vacation since the transition so has only been on this schedule for about 1 week. Patient Reported Progress Worse OP-PT Pain Assessment Location L SI Description- Other medial to lateral upon palpation Pain Duration only to touch Radiating Location low back on L to L side in a horizontal line R SI Intensity 6 Scale Used Numeric (1 - 10) PT-OP-F Manual Assessment Start: 03/15/18 08:43 Freq: Status: Active Protocol: Document 03/14/18 17:59 ML (Rec: 03/15/18 08:49 ML [email or web address]) Manual Assessments Soft Tissue Assessment Soft Tissue Mobility Assessment L SI region radiates laterally to lateral trunk in horizontal pattern with very light touch Joint Mobility Assessment Joint Mobility Assessment R inominate compression creates relief; L inominate compression cases R pain; bilateral compression laterally on iliac crests creates pain on R posteriorly; dec L inominate motion in ext ; passive hip flexion motion assessments presents with poor timing of her L side ( mobility of sacrum and inominate move together at 90 and lumbar moves at 110) PT-OP-G Mobility & Gait Start: 03/15/18 08:49 Freq: Status: Active Protocol: Document 03/14/18 17:59 ML (Rec: 03/15/18 08:53 ML [email or web address]) OP Gait Assessment Comments Gait Comments Pt initates gait with lat trunk lean and ambulates with very little trunk or pelvis motion PT-OP-J Posture/Palpation/Skin Start: 03/15/18 08:49 Freq: Status: Active Protocol: Document 03/14/18 17:59 ML (Rec: 03/15/18 08:53 ML [email or web address]) Posture Evaluation Ruslan Postural Classification System Ruslan Postural Classifications Anterior/Posterior Vertebral Compression Test 0 Elbow Flexion Test 0 Lumbar Protective Mechanism Left AP 0 Lumbar Protective Mechanism Right AP 0 Lumbar Protective Mechanism Left PA 0 Lumbar Protective Mechanism Right PA 0 PT-OP-K Range of Motion Start: 09/07/17 14:28 Freq: Status: Active Protocol: Document 10/27/17 13:35 AMH (Rec: 10/27/17 13:36 AMH [email or web address]) Hip Goniometric Range of Motion Hip Measured in Degrees Right Hip ROM WFL Yes Left Hip ROM WFL Yes PT-OP-M Strength Start: 09/07/17 14:28 Freq: Status: Active Protocol: Document 03/14/18 17:59 ML (Rec: 03/15/18 08:43 ML [email or web address]) Hip Strength Hip Manual Muscle Testing L Flexion (L2) 3+ Fair+ Extension (S1) 4 Good Abduction 3+ Fair+ External Rotation 4- Good- Internal Rotation 3+ Fair+ R Flexion (L2) 4 Good Extension (S1) 4 Good Abduction 4- Good- External Rotation 4- Good- Internal Rotation 3+ Fair+ Knee Strength Knee Manual Muscle Testing L Flexion (S2) 4 Good Extension (L3) 4 Good R Flexion (S2) 3+ Fair+ Extension (L3) 4- Good- Ankle/Foot Strength Ankle and Foot Manual Muscle Testing L Dorsiflexion (L4) 4 Good Plantarflexion (S1) 4+ Good+ R Dorsiflexion (L4) 4 Good Plantarflexion (S1) 4+ Good+ PT-OP-Q Treatments Start: 09/07/17 14:28 Freq: Status: Active Protocol: Document 03/14/18 17:59 LRH (Rec: 03/15/18 16:39 LRH [email or web address]) Therapeutic Activity Therapeutic Activity Standing posture Name edu of standing posture PT-OP-R Modalities Start: 09/07/17 14:28 Freq: Status: Active Protocol: Document 12/21/17 12:00 GGD (Rec: 12/21/17 16:48 GGD [email or web address]) Ultrasound Therapy Treatment left sacral REBECA muscular attachments Patient Position Prone Coupling Medium Ultrasound Gel Mode Setting Continuous Duty Cycle 100% Intensity Setting (w/cm2) 1.5 PT-OP-T Assessment and Plan Start: 09/07/17 14:28 Freq: Status: Active Protocol: Document 03/14/18 17:59 ML (Rec: 03/14/18 18:34 ML [email or web address]) Physical Therapy Assessment Rehab Potential Rehabilitation Potential Good Evaluation Complexity Number of Personal Factors/Comorbidities 1-2 Number of Body Systems Impaired 4 or More Clinical Presentation at Evaluation Evolving Impairments Impairments Activity Tolerance Balance Functional Activities Functional Mobility Gait Pain Posture ROM Sensation Soft Tissue Mobility Strength Goals 2 Impairment dec strength Short Term Goal (STG) Pt will be independent with HEP in order to improve strength. STG Duration 04/13/18 Engineering Psychologist Goal (LTG) Pt will have 4/5 strength in her LEs bilaterally in order to participate in physical activity. LTG Duration 05/14/18 1 Impairment pain Short Term Goal (STG) Pt's pain will dec in order for her to participate in yoga . STG Duration 04/13/18 Engineering Psychologist Goal (LTG) Pt's pain will dec to 3/10 on average throughout her work day. LTG Duration 05/14/18 Assessment Summary Assessment Pt reported to PT after a long day of work with R SI pain, and indicating L SI instability. Pt is very sensitive to palpation on her L SI region causing radiating nerve pain to her L lateral trunk directly horizontal to palpation. The pt presents with weakness in her LEs bilaterally and has significant postural instability that was assessed through static postural tests. The pt reported pain posteriorly with SI compression test. She also noted relief of pain when compression was applied to either inominate in a prone position. She presents with antalgic gait and poor posture . Her posture was addressed, and the pt noted increased stability through examination when achieving the correct posture. Pt was instructed to work on her posture at home. Physical Therapy Plan Frequency and Duration Frequency of Treatment 2x/Week Duration of Treatment 2 months Plan of Care Start Date 04/13/18 Plan of Care End Date 05/14/18 Therapeutic Interventions Therapeutic Interventions Aquatic Therapy Balance Training Gait Training Home Exercise Program Joint Mobilizations Manual Therapy Neuromuscular Re-education Patient/Caregiver Education Self-Care/Home Management Soft Tissue Mobilization Taping Therapeutic Activities Therapeutic Exercises Modalities Biofeedback Cold Pack/Ice Massage Electric Stimulation Hot Packs Iontophoresis Traction- Mechanical Ultrasound Next Visit Focus/Plan Next Note Type Treatment Note Next Visit Plan review posture, gait, PNF, HEP (strengthening)
--- NOTE | 2018-03-15 16:40 | PT.OPPOC ---
Addendum entered and electronically signed by Sherrie Goldberg, PT 03/15/18 16:42: Plan Of Care PT-OP-T Assessment and Plan Start: 09/07/17 14:28 Freq: Status: Active Protocol: Document 03/14/18 17:59 ML (Rec: 03/14/18 18:34 ML [email or web address]) Physical Therapy Assessment Rehab Potential Rehabilitation Potential Good Evaluation Complexity Number of Personal Factors/Comorbidities 1-2 Number of Body Systems Impaired 4 or More Clinical Presentation at Evaluation Evolving Impairments Impairments Activity Tolerance Balance Functional Activities Functional Mobility Gait Pain Posture ROM Sensation Soft Tissue Mobility Strength Goals 2 Impairment dec strength Short Term Goal (STG) Pt will be independent with HEP in order to improve strength. STG Duration 04/13/18 Shelter Goal (LTG) Pt will have 4/5 strength in her LEs bilaterally in order to participate in physical activity. LTG Duration 05/14/18 1 Impairment pain Short Term Goal (STG) Pt's pain will dec in order for her to participate in yoga . STG Duration 04/13/18 Shelter Goal (LTG) Pt's pain will dec to 3/10 on average throughout her work day. LTG Duration 05/14/18 Assessment Summary Assessment Pt reported to PT after a long day of work with R SI pain, and indicating L SI instability. Pt is very sensitive to palpation on her L SI region causing radiating nerve pain to her L lateral trunk directly horizontal to palpation. The pt presents with weakness in her LEs bilaterally and has significant postural instability that was assessed through static postural tests. The pt reported pain posteriorly with SI compression test. She also noted relief of pain when compression was applied to either inominate in a prone position. She presents with antalgic gait and poor posture . Her posture was addressed, and the pt noted increased stability through examination when achieving the correct posture. Pt was instructed to work on her posture at home. Physical Therapy Plan Frequency and Duration Frequency of Treatment 2x/Week Duration of Treatment 2 months Plan of Care Start Date 04/13/18 Plan of Care End Date 05/14/18 Therapeutic Interventions Therapeutic Interventions Aquatic Therapy Balance Training Gait Training Home Exercise Program Joint Mobilizations Manual Therapy Neuromuscular Re-education Patient/Caregiver Education Self-Care/Home Management Soft Tissue Mobilization Taping Therapeutic Activities Therapeutic Exercises Modalities Biofeedback Cold Pack/Ice Massage Electric Stimulation Hot Packs Iontophoresis Traction- Mechanical Ultrasound Next Visit Focus/Plan Next Note Type Treatment Note Next Visit Plan review posture, gait, PNF, HEP (strengthening) Plan of Care Dates Plan of Care Start Date 04/13/18 Plan of Care End Date 05/14/18 Please Sign and Return: I have reviewed this Plan of Care and certify that the skilled therapy services above are required to meet the patient?s needs. Physician Signature Date Printed Name and Credentials Clinical Instructor Signature Printed Name and Credentials Original Note: Current Diagnoses Other specified joint disorders, left hip (03/14/18) Crushing injury of abdomen, lower back, and pelvis, subsequent encounter (03/14/18) Provider Visit Care Team Role Provider Type Mei Sun PA-C Attending Provider Advanced Ceramic Tile Setter Family Provider Primary Care Provider Specialty: Internal Medicine Address: [address] [place] [address], [id number] Email: Plan of Care Dates Plan of Care Start Date 10/26/17 Plan of Care End Date 01/04/18 Please Sign and Return: I have reviewed this Plan of Care and certify that the skilled therapy services above are required to meet the patient?s needs. Physician Signature Date Printed Name and Credentials Clinical Instructor Signature Printed Name and Credentials
--- NOTE | 2018-03-16 18:36 | PT.OTN ---
Current Diagnoses Other specified joint disorders, left hip (03/16/18) Crushing injury of abdomen, lower back, and pelvis, subsequent encounter (03/16/18) Physical Therapy Treatment Note PT-OP-A Visit Information Start: 03/14/18 09:32 Freq: Status: Active Protocol: Document 03/16/18 17:47 ML (Rec: 03/16/18 17:58 ML [id number]) Out-Patient Physical Therapy Visit Information Visit Information Visit Type Treatment Note Visit Start Time 16:49 Visit Stop Time 17:40 Total Visit Minutes 51 Visit Number 2/10 Number of CHUCKING MACHINE SET UP OPERATOR TOOL Visits 0 PT-OP-C Subjective Start: 03/14/18 09:32 Freq: Status: Active Protocol: Document 03/16/18 17:47 ML (Rec: 03/16/18 17:58 ML [id number]) OP-PT Subjective Patient Comments Patient Comments Pt notes that she has been working on her posture and asks about her posture in gait . PT-OP-Q Treatments Start: 03/14/18 09:32 Freq: Status: Active Protocol: Document 03/16/18 17:47 ML (Rec: 03/16/18 17:58 ML [id number]) Therapeutic Exercises Supine Exercises 4 Supine Exercise Name clamshells Reps/Minutes 3x Comments no HEP; terminated due to pain 3 Supine Exercise Name mundo test stretch Comments HEP 2 Supine Exercise Name bridge with hamstring curl Equipment Used 65 cm tball Comments HEP; neutral spine 1 Supine Exercise Name bridge Comments HEP; cues for maintaining neutral spine Sidelying Exercises 1 Sidelying Exercise Name hip abd Resistance none Comments HEP; cues for neutral pelvis Standing Exercises 1 Standing Exercise Name gait press at wall Comments post depression and ant elevation pelvis; HEP Therapeutic Activity Therapeutic Activity 1 Name posture education Comments in standing with verbal and tactile cues; verbal education for posture through gait ( addressed with pelvis mobility in re-education) Neuro Re-Education Treatment Other Activities 1 Details PNF for post depression and ant elevation of pelvis Comments left PT-OP-T Assessment and Plan Start: 03/14/18 09:32 Freq: Status: Active Protocol: Document 03/16/18 17:47 ML (Rec: 03/16/18 17:58 ML [email or web address]) Physical Therapy Assessment Goals 2 Impairment dec strength Short Term Goal (STG) Pt will be independent with HEP in order to improve strength. STG Duration 04/13/18 Box Nailer Goal (LTG) Pt will have 4/5 LE strength bilaterally in order to participate in physical activity. LTG Duration 05/14/18 1 Impairment pain Short Term Goal (STG) Pt's pain will dec in order for her to particiapte in yoga . STG Duration 04/13/18 Residential Goal (LTG) Pt's pain will dec to 3/10 on average throughout her work day. LTG Duration 05/14/18 Assessment Summary Assessment Pt presented to PT with improved posture only requiring minor adjustments. Pt was given HEP to improve her LE strength, flexibilty, and mobility. Pt was re- educated through her pelvis in order to inc pelvis motion during gait, and pt left feeling looser in her ability to move through her pelvis in walking. Physical Therapy Plan Frequency and Duration Frequency of Treatment 2x/Week Duration of Treatment 2 months Plan of Care Start Date 04/13/18 Plan of Care End Date 05/14/18 Therapeutic Interventions Therapeutic Interventions Aquatic Therapy Balance Training Gait Training Home Exercise Program Joint Mobilizations Manual Therapy Neuromuscular Re-education Patient/Caregiver Education Self-Care/Home Management Soft Tissue Mobilization Taping Therapeutic Activities Therapeutic Exercises Modalities Cold Pack/Ice Massage Electric Stimulation Hot Packs Infrared Therapy Iontophoresis Traction- Mechanical Ultrasound Next Visit Focus/Plan Next Note Type Treatment Note Next Visit Plan Review HEP; PNF of R; posture in sitting and reassess standing; soft tissue ITB and back; hip and inominate mobilizations
--- NOTE | 2018-03-21 18:09 | PT.OTN ---
Current Diagnoses Other specified joint disorders, left hip (03/21/18) Crushing injury of abdomen, lower back, and pelvis, subsequent encounter (03/21/18) Physical Therapy Treatment Note PT-OP-A Visit Information Start: 03/14/18 09:32 Freq: Status: Active Protocol: Document 03/21/18 17:54 ML (Rec: 03/21/18 18:07 ML [email or web address]) Out-Patient Physical Therapy Visit Information Visit Information Visit Type Treatment Note Visit Start Time 16:47 Visit Stop Time 17:42 Total Visit Minutes 55 Visit Number 3/10 Number of AIR CONDITIONING SPECIALIST Visits 0 PT-OP-C Subjective Start: 03/14/18 09:32 Freq: Status: Active Protocol: Document 03/21/18 17:54 ML (Rec: 03/21/18 18:07 ML [email or web address]) OP-PT Subjective Patient Comments Patient Comments Pt reported being sore after her last visit, but that after a day or so of rest, she was able to continue with her HEP. Pt noted that her soreness was in her groin region. PT-OP-Q Treatments Start: 03/14/18 09:32 Freq: Status: Active Protocol: Document 03/21/18 17:54 ML (Rec: 03/21/18 18:07 ML [email or web address]) Gym Equipment Therapeutic Ball 1 Exercise Details hamstring curl Ball Size/Color green Comments UE support; lvl 1 band; HEP; started just sitting on stable surface and transitioned to this seated position Therapeutic Exercises Supine Exercises 1 Supine Exercise Name bridge Reps/Minutes review 2-4x Comments HEP; cues for maintaining neutral spine Sidelying Exercises 1 Sidelying Exercise Name hip abd Resistance lvl 1 Reps/Minutes review; added band for 10x Comments HEP; cues for neutral pelvis Standing Exercises 1 Standing Exercise Name gait press at wall Comments post depression and ant elevation pelvis; HEP Other Exercises 1 Other Exercise Name quadruped extremity lift Comments just arms, just legs, both opposite arms&legs; HEP just legs;neutral pelvis Manual Therapy Treatment Soft Tissue Mobilization 1 Body Location IT band Mobilization Type Myofascial Release Rolling Sustained Pressure Body Position Hooklying Comments bilat Neuro Re-Education Treatment Other Activities 1 Details PNF for post depression and ant elevation of pelvis Comments right PT-OP-R Modalities Start: 03/14/18 09:32 Freq: Status: Active Protocol: Document 03/21/18 17:54 ML (Rec: 03/21/18 18:07 ML [email or web address]) Hot Pack/Cold Pack Treatment Cold Pack Location SI region Patient Position Hooklying Treatment Duration (minutes) 10 PT-OP-T Assessment and Plan Start: 03/14/18 09:32 Freq: Status: Active Protocol: Document 03/21/18 17:54 ML (Rec: 03/21/18 18:07 ML [email or web address]) Physical Therapy Assessment Goals 2 Impairment dec strength Short Term Goal (STG) Pt will be independent with HEP in order to improve strength. STG Duration 04/13/18 Half-Way Goal (LTG) Pt will have 4/5 LE strength bilaterally in order to participate in physical activity. LTG Duration 05/14/18 1 Impairment pain Short Term Goal (STG) Pt's pain will dec in order for her to particiapte in yoga . STG Duration 04/13/18 Half-Way Goal (LTG) Pt's pain will dec to 3/10 on average throughout her work day. LTG Duration 05/14/18 Assessment Summary Assessment Pt presented today with reports of some soreness which were addressed through reviewing HEP. Pt mentioned that the hamstring curl exercise in supine was bothering her SI and the exercise was transitioned to sitting on a theraball that did not elicit symptoms. Pt was able to improve her HEP with adding a lvl 1 band and adding a heel raise to her wall press exercise. Pt indicated that her IT band tightness was greater on the L than R, but was instructed that she could continue the manual work on her IT bands at home through using a roller. Physical Therapy Plan Frequency and Duration Frequency of Treatment 2x/Week Duration of Treatment 2 months Plan of Care Start Date 04/13/18 Plan of Care End Date 05/14/18 Next Visit Focus/Plan Next Note Type Treatment Note Next Visit Plan Review HEP; PNF of R; posture in sitting and reassess standing; soft tissue ITB and back; hip and inominate mobilizations
--- NOTE | 2018-03-23 18:19 | PT.OTN ---
Current Diagnoses Other specified joint disorders, left hip (03/23/18) Crushing injury of abdomen, lower back, and pelvis, subsequent encounter (03/23/18) Physical Therapy Treatment Note PT-OP-A Visit Information Start: 03/14/18 09:32 Freq: Status: Active Protocol: Document 03/23/18 18:05 ML (Rec: 03/23/18 18:13 ML [id number]) Out-Patient Physical Therapy Visit Information Visit Information Visit Type Treatment Note Visit Start Time 16:47 Visit Stop Time 17:32 Total Visit Minutes 45 Visit Number 4/10 Number of CD REACTOR OPERATOR HEAD Visits 0 PT-OP-C Subjective Start: 03/14/18 09:32 Freq: Status: Active Protocol: Document 03/23/18 18:05 ML (Rec: 03/23/18 18:13 ML [email or web address]) OP-PT Subjective Patient Comments Patient Comments Pt notes that her tactile sensitivity on her L side is far less than usual lately. Patient Reported Progress Improving PT-OP-Q Treatments Start: 03/14/18 09:32 Freq: Status: Active Protocol: Document 03/23/18 18:05 ML (Rec: 03/23/18 18:13 ML [id number]) Gym Equipment Therapeutic Ball 2 Exercise Details marching on ball Ball Size/Color green Body Position seated Comments HEP; pt uses min UE support Therapeutic Exercises Standing Exercises 2 Standing Exercise Name hip adductor stretch Side bilateral Comments HEP Other Exercises 1 Other Exercise Name quadruped extremity lift Comments HEP progressed to both arms and leg;neutral pelvis cued with objects on SIs Manual Therapy Treatment Soft Tissue Mobilization 2 Body Location R hip adductors Mobilization Type Myofascial Release Rolling Strumming Sustained Pressure Intensity/Depth Superficial Body Position Hooklying Comments Pt did not tolerate much tactile pressure PT-OP-R Modalities Start: 03/14/18 09:32 Freq: Status: Active Protocol: Document 03/21/18 17:54 ML (Rec: 03/21/18 18:07 ML [email or web address]) Hot Pack/Cold Pack Treatment Cold Pack Location SI region Patient Position Hooklying Treatment Duration (minutes) 10 PT-OP-T Assessment and Plan Start: 03/14/18 09:32 Freq: Status: Active Protocol: Document 03/23/18 18:05 ML (Rec: 03/23/18 18:13 ML [id number]) Physical Therapy Assessment Goals 2 Impairment dec strength Short Term Goal (STG) Pt will be independent with HEP in order to improve strength. STG Duration 04/13/18 Steam Flattener Goal (LTG) Pt will have 4/5 LE strength bilaterally in order to participate in physical activity. LTG Duration 05/14/18 1 Impairment pain Short Term Goal (STG) Pt's pain will dec in order for her to particiapte in yoga . STG Duration 04/13/18 Steam Flattener Goal (LTG) Pt's pain will dec to 3/10 on average throughout her work day. LTG Duration 05/14/18 Assessment Summary Assessment Pt reported feeling better overall in terms of pain and her activity, especially her ability to tolerate tactile sensation on her L SI region. Pt did complain of continue hip adductor tightness on the R which was addressed with soft tissue mobilization. Pt was able to progress her core exercises and was given a stretch to do at home for her adductors. Physical Therapy Plan Frequency and Duration Frequency of Treatment 2x/Week Duration of Treatment 2 months Plan of Care Start Date 04/13/18 Plan of Care End Date 05/14/18 Next Visit Focus/Plan Next Note Type Treatment Note Next Visit Plan MET; PNF prn; adductors ( plunger); sacral block for mobilize inominate and sacral mobility
--- NOTE | 2018-03-28 18:09 | PT.OTN ---
Current Diagnoses Other specified joint disorders, left hip (03/28/18) Crushing injury of abdomen, lower back, and pelvis, subsequent encounter (03/28/18) Physical Therapy Treatment Note PT-OP-A Visit Information Start: 03/14/18 09:32 Freq: Status: Active Protocol: Document 03/28/18 17:58 ML (Rec: 03/28/18 18:06 ML [email or web address]) Out-Patient Physical Therapy Visit Information Visit Information Visit Type Treatment Note Visit Start Time 16:45 Visit Stop Time 17:43 Total Visit Minutes 58 Visit Number 5/10 Number of HEAD OF INTEGRATED MEDIA Visits 0 PT-OP-C Subjective Start: 03/14/18 09:32 Freq: Status: Active Protocol: Document 03/28/18 17:58 ML (Rec: 03/28/18 18:06 ML [email or web address]) OP-PT Subjective Patient Comments Patient Comments Pt noted that when she was trying to focus on her gait motion, she would get SI pain that started on R and moved L then was relieved with shotgun technique. PT-OP-Q Treatments Start: 03/14/18 09:32 Freq: Status: Active Protocol: Document 03/28/18 17:58 ML (Rec: 03/28/18 18:06 ML [email or web address]) Therapeutic Exercises Standing Exercises 1 Standing Exercise Name gait press at wall Comments post depression and ant elevation pelvis; HEP Gait Training Gait Activity gait Description gait after pelvis re-ed Distance/Duration 40' x10 Treatment Focus re-educate gait pattern Comments tactile and verbal cueing as well as visual demonstration, intermittent reciprocal gait, single stepping, and stationary gait at wall through press Neuro Re-Education Treatment Other Activities 1 Details PNF for post depression and ant elevation of pelvis Comments bilat PT-OP-R Modalities Start: 03/14/18 09:32 Freq: Status: Active Protocol: Document 03/21/18 17:54 ML (Rec: 03/21/18 18:07 ML [email or web address]) Hot Pack/Cold Pack Treatment Cold Pack Location SI region Patient Position Hooklying Treatment Duration (minutes) 10 PT-OP-T Assessment and Plan Start: 03/14/18 09:32 Freq: Status: Active Protocol: Document 03/28/18 17:58 ML (Rec: 03/28/18 18:06 ML [email or web address]) Physical Therapy Assessment Goals 2 Impairment dec strength Short Term Goal (STG) Pt will be independent with HEP in order to improve strength. STG Duration 04/13/18 Lab Tech Goal (LTG) Pt will have 4/5 LE strength bilaterally in order to participate in physical activity. LTG Duration 05/14/18 1 Impairment pain Short Term Goal (STG) Pt's pain will dec in order for her to particiapte in yoga . STG Duration 04/13/18 Halfway Goal (LTG) Pt's pain will dec to 3/10 on average throughout her work day. LTG Duration 05/14/18 Assessment Summary Assessment Pt demonstrated how she was working on her walking and indicated that it was primarily inc step length. pt still lacked pelvis motion during gait and was re- educated with PNF bilaterally. Pt improved her mobility, but had inc rotation during gait, especially on her right. Lots of repetition through gait exercises involving lots of cueing in many forms. Pt's main focus for her gait after exercises is for posture, abd stability, and relaxing her arm swing at sides that all contributed to her inc rotation. Pt improved her ability to move pelvis appropriately through cueing. Physical Therapy Plan Frequency and Duration Frequency of Treatment 2x/Week Duration of Treatment 2 months Plan of Care Start Date 04/13/18 Plan of Care End Date 05/14/18 Next Visit Focus/Plan Next Note Type Treatment Note Next Visit Plan MET; PNF prn; adductors ( plunger); sacral block for mobilize inominate and sacral mobility; stabilizing in nutated position; check gait ( core, good posture, and arms relaxed at sides through swing )
--- NOTE | 2018-03-30 17:48 | PT.OTN ---
Current Diagnoses Other specified joint disorders, left hip (03/30/18) Crushing injury of abdomen, lower back, and pelvis, subsequent encounter (03/30/18) Physical Therapy Treatment Note PT-OP-A Visit Information Start: 03/14/18 09:32 Freq: Status: Active Protocol: Document 03/30/18 17:36 ML (Rec: 03/30/18 17:44 ML [id number]) Out-Patient Physical Therapy Visit Information Visit Information Visit Type Treatment Note Visit Start Time 16:48 Visit Stop Time 17:33 Total Visit Minutes 45 Visit Number 6/10 Number of SHED WORKERS SUPERVISOR Visits 0 PT-OP-C Subjective Start: 03/14/18 09:32 Freq: Status: Active Protocol: Document 03/30/18 17:36 ML (Rec: 03/30/18 17:44 ML [email or web address]) OP-PT Subjective Patient Comments Patient Comments Pt notes she has been working on her walking lots, but despite dec pain, still has pain through walking with her job. PT-OP-Q Treatments Start: 03/14/18 09:32 Freq: Status: Active Protocol: Document 03/30/18 17:36 ML (Rec: 03/30/18 17:44 ML [id number]) Gait Training Gait Activity gait Description gait Distance/Duration 40' x4 Treatment Focus re-educate gait pattern Comments verbal cues for correction Manual Therapy Treatment Soft Tissue Mobilization 3 Body Location R hamstring Mobilization Type Myofascial Release Sustained Pressure Intensity/Depth Moderate Body Position Prone Comments active CR of knee flex/ext Joint Mobilizations 2 Joint sacrum Direction PA Comments PA; mid and inf; active knee flex/ext; bilat and R only 1 Joint inominate Direction AP Comments R and L; inc hip flex; active hip ext PT-OP-R Modalities Start: 03/14/18 09:32 Freq: Status: Active Protocol: Document 03/21/18 17:54 ML (Rec: 03/21/18 18:07 ML [email or web address]) Hot Pack/Cold Pack Treatment Cold Pack Location SI region Patient Position Hooklying Treatment Duration (minutes) 10 PT-OP-T Assessment and Plan Start: 03/14/18 09:32 Freq: Status: Active Protocol: Document 03/30/18 17:36 ML (Rec: 03/30/18 17:44 ML [id number]) Physical Therapy Assessment Goals 2 Impairment dec strength Short Term Goal (STG) Pt will be independent with HEP in order to improve strength. STG Duration 04/13/18 Impregnating Helper Goal (LTG) Pt will have 4/5 LE strength bilaterally in order to participate in physical activity. LTG Duration 05/14/18 1 Impairment pain Short Term Goal (STG) Pt's pain will dec in order for her to particiapte in yoga . STG Duration 04/13/18 Impregnating Helper Goal (LTG) Pt's pain will dec to 3/10 on average throughout her work day. LTG Duration 05/14/18 Assessment Summary Assessment Pt presented to PT with improved gait pattern despite inability to achieve appropriate pelivs mobility throughout. Pt was addressed for HISL through hip flexion, and had sacrum and inominate moving together, as well as a extended sacrum which were both addressed with manual treatment. pt presented with regular popping in knee from hamstrings through mobilization that she states she get frequently. This popping was addressed manually . Pt notes that her gait after treatment felt better and as if she was gliding. Physical Therapy Plan Frequency and Duration Frequency of Treatment 2x/Week Duration of Treatment 2 months Plan of Care Start Date 04/13/18 Plan of Care End Date 05/14/18 Next Visit Focus/Plan Next Note Type Treatment Note Next Visit Plan MET; PNF prn; adductors and hamstrings(plunger); mopping and stairs; gait
--- NOTE | 2018-04-04 17:56 | PT.OTN ---
Current Diagnoses Other specified joint disorders, left hip (04/04/18) Crushing injury of abdomen, lower back, and pelvis, subsequent encounter (04/04/18) Physical Therapy Treatment Note PT-OP-A Visit Information Start: 03/14/18 09:32 Freq: Status: Active Protocol: Document 04/04/18 17:42 ML (Rec: 04/04/18 17:53 ML [email or web address]) Out-Patient Physical Therapy Visit Information Visit Information Visit Type Treatment Note Visit Start Time 16:45 Visit Stop Time 17:40 Total Visit Minutes 55 Visit Number 7/10 Number of EVS TECH Visits 0 PT-OP-C Subjective Start: 03/14/18 09:32 Freq: Status: Active Protocol: Document 04/04/18 17:42 ML (Rec: 04/04/18 17:53 ML [email or web address]) OP-PT Subjective Patient Comments Patient Comments Pt notes that she was walking on the stairs and had a big pull in her L groin area that felt like hitting your funny bone. PT-OP-Q Treatments Start: 03/14/18 09:32 Freq: Status: Active Protocol: Document 04/04/18 17:42 ML (Rec: 04/04/18 17:53 ML [email or web address]) Therapeutic Exercises Sitting Exercises foam roll mobilization Sitting Exercise Name ischial tuberosity mobilization Side bilateral Comments sitting on foam roll and rocking back and forth btwn ITs, inc pelvis motion Therapeutic Activity Therapeutic Activity 1 Name mopping Comments side to side and fwd and back; cues for inc use of legs for motion and dec lumbar ext, and rotation through turnk or pelvis Gait Training Gait Activity stairs Description stairs Comments no rails on way up, rails on way down; cues for glute activation through trunk lean and dec lumbar ext Manual Therapy Treatment Soft Tissue Mobilization gracilis Body Location L Mobilization Type Myofascial Release Sustained Pressure Intensity/Depth Moderate Comments prone and supine; CR of knee flex/ext and pelvis tilt Joint Mobilizations pelvis Joint pelvis/ischial tuberosities Direction distraction from sacrum Comments in quadruped; L>R; active IR/ ER to assist PT-OP-R Modalities Start: 03/14/18 09:32 Freq: Status: Active Protocol: Document 03/21/18 17:54 ML (Rec: 03/21/18 18:07 ML [email or web address]) Hot Pack/Cold Pack Treatment Cold Pack Location SI region Patient Position Hooklying Treatment Duration (minutes) 10 PT-OP-T Assessment and Plan Start: 03/14/18 09:32 Freq: Status: Active Protocol: Document 04/04/18 17:42 ML (Rec: 04/04/18 17:53 ML [email or web address]) Physical Therapy Assessment Goals 2 Impairment dec strength Short Term Goal (STG) Pt will be independent with HEP in order to improve strength. STG Duration 04/13/18 Correction Goal (LTG) Pt will have 4/5 LE strength bilaterally in order to participate in physical activity. LTG Duration 05/14/18 1 Impairment pain Short Term Goal (STG) Pt's pain will dec in order for her to particiapte in yoga . STG Duration 04/13/18 Acrobatic Rigger Goal (LTG) Pt's pain will dec to 3/10 on average throughout her work day. LTG Duration 05/14/18 Assessment Summary Assessment Pt's gracilis tightness was addressed manually through mobilizations. Pt's mechanics for mopping at work were also addressed in which pt presented with inc trunk ext and rotational components of movement. Pt's mechanics were addressed and improved in order to dec aggravation and instability through excess pelvis motion. Pt's gait on stairs was also addressed in which she was able to improve her glute activation and dec lumbar ext with verbal cueing to dec symptoms and pain and improve her gait. Pt's posture was significantly addressed through both mopping and stair exercises. Physical Therapy Plan Frequency and Duration Frequency of Treatment 2x/Week Duration of Treatment 2 months Plan of Care Start Date 04/13/18 Plan of Care End Date 05/14/18 Next Visit Focus/Plan Next Note Type Treatment Note Next Visit Plan MET; posture; PNF prn; adductors and hamstrings( plunger); check mopping and stairs; gait
--- NOTE | 2018-04-06 18:07 | PT.OTN ---
Current Diagnoses Other specified joint disorders, left hip (04/06/18) Crushing injury of abdomen, lower back, and pelvis, subsequent encounter (04/06/18) Physical Therapy Treatment Note PT-OP-A Visit Information Start: 03/14/18 09:32 Freq: Status: Active Protocol: Document 04/06/18 17:43 ML (Rec: 04/06/18 17:56 ML [id number]) Out-Patient Physical Therapy Visit Information Visit Information Visit Type Treatment Note Visit Start Time 16:47 Visit Stop Time 17:42 Total Visit Minutes 55 Visit Number 8/10 Number of EXECUTIVE BUSINESS COACH Visits 0 PT-OP-C Subjective Start: 03/14/18 09:32 Freq: Status: Active Protocol: Document 04/06/18 17:43 ML (Rec: 04/06/18 17:56 ML [email or web address]) OP-PT Subjective Patient Comments Patient Comments Pt notes that her adductors aren't as tight, but they are sore from the last treatment. PT-OP-Q Treatments Start: 03/14/18 09:32 Freq: Status: Active Protocol: Document 04/06/18 17:43 ML (Rec: 04/06/18 17:56 ML [email or web address]) Therapeutic Exercises Supine Exercises 4 Supine Exercise Name TrA contraction with tactile cueing Comments meet resistance of palmar tactile cue; slight initiation of contraction 3 Supine Exercise Name TrA contraction with verbal cues Comments pt unable to initate with 4 different verbal cues 2 Supine Exercise Name TrA contraction w/resistance/ motion Comments attempted through abd press fwd and diag and marches, unable to isolate 1 Supine Exercise Name pelvic floor Comments cued through 10x quick contraction; 10 sec hold; slow progressing CR Manual Therapy Treatment Soft Tissue Mobilization 4 Body Location R iliopsoas Mobilization Type Myofascial Release Sustained Pressure Intensity/Depth Moderate Body Position Hooklying Comments active DF/PF Self-Care/Home Management Treatment Activities Self-Care/Home Management Activities Verbally discussed stairs and mopping at work; reminders for precaution not to rotate shoulders/trunk when using one arm to mop PT-OP-R Modalities Start: 03/14/18 09:32 Freq: Status: Active Protocol: Document 03/21/18 17:54 ML (Rec: 03/21/18 18:07 ML [email or web address]) Hot Pack/Cold Pack Treatment Cold Pack Location SI region Patient Position Hooklying Treatment Duration (minutes) 10 PT-OP-T Assessment and Plan Start: 03/14/18 09:32 Freq: Status: Active Protocol: Document 04/06/18 17:43 ML (Rec: 04/06/18 17:56 ML [id number]) Physical Therapy Assessment Goals 2 Impairment dec strength Short Term Goal (STG) Pt will be independent with HEP in order to improve strength. STG Duration 04/13/18 Longterm Goal (LTG) Pt will have 4/5 LE strength bilaterally in order to participate in physical activity. LTG Duration 05/14/18 1 Impairment pain Short Term Goal (STG) Pt's pain will dec in order for her to particiapte in yoga . STG Duration 04/13/18 Physical Integration Practitioner Goal (LTG) Pt's pain will dec to 3/10 on average throughout her work day. LTG Duration 05/14/18 Assessment Summary Assessment Pt's mopping and stair mechanics were addressed today , and pt seemed to affirm correct mobility, with only slight reminders through verbal discussion of technique . Pt notes that she has been popping through her pubic symphsis now that her adductors are loosened up, indicating that her adductors were a primary stabilizer. Upon evaluation of ability to use stabilizing muscles, pt was unable to achieve a TrA contraction with motion or verbal cueing. Contraction that was achieved was very minimal. Pt was linda her iliopsoas to achieve exercises. Pt's iliopsoas on R was very tight and addressed manually. Pt was instructed to practice getting the correct contraction at home, which was demonstrated appropriately for pt understanding. Pt was able to achieve pelvic floor contractions through correct cueing to not initiate glutes. Pt was able to achieve all exercises but had difficulty with sustained holds which she was instructed to practice at home. Physical Therapy Plan Frequency and Duration Frequency of Treatment 2x/Week Duration of Treatment 2 months Plan of Care Start Date 04/13/18 Plan of Care End Date 05/14/18 Next Visit Focus/Plan Next Note Type Treatment Note Next Visit Plan core stability progressed, amber TrA; assess diaphragm use with core contraction; dec hip flex contraction through core use and mobilize prn
--- NOTE | 2018-04-11 17:54 | PT.OTN ---
Current Diagnoses Other specified joint disorders, left hip (04/11/18) Crushing injury of abdomen, lower back, and pelvis, subsequent encounter (04/11/18) Physical Therapy Treatment Note PT-OP-A Visit Information Start: 03/14/18 09:32 Freq: Status: Active Protocol: Document 04/11/18 17:49 [facility] (Rec: 04/11/18 17:54 [facility] [email or web address]) Out-Patient Physical Therapy Visit Information Visit Information Visit Type Treatment Note Visit Start Time 16:50 Visit Stop Time 17:45 Total Visit Minutes 55 Visit Number 01/19 Number of APPRAISAL TECHNICIAN Visits 0 PT-OP-C Subjective Start: 03/14/18 09:32 Freq: Status: Active Protocol: Document 04/11/18 17:49 [facility] (Rec: 04/11/18 17:54 [facility] [id number]) OP-PT Subjective Patient Comments Patient Comments Reports overall feeling better . PT-OP-Q Treatments Start: 03/14/18 09:32 Freq: Status: Active Protocol: Document 04/11/18 17:49 [facility] (Rec: 04/11/18 17:54 [facility] [email or web address]) Gait Training Gait Activity stairs Description stairs Comments up with focus on post depression during stand up onto step without rails; step downs with focus on control without rotation w/rail in mirror Manual Therapy Treatment Soft Tissue Mobilization 1 Body Location iliacus R Mobilization Type Strumming Sustained Pressure Intensity/Depth Moderate Neuro Re-Education Treatment Other Activities mass flex & ext Details PNF COI mass flex & ext B w/ rolling PT-OP-R Modalities Start: 03/14/18 09:32 Freq: Status: Active Protocol: Document 04/11/18 17:49 [facility] (Rec: 04/11/18 17:54 [facility] [email or web address]) Hot Pack/Cold Pack Treatment Cold Pack Location lumbar & R hip ant Patient Position Hooklying Treatment Duration (minutes) 10 PT-OP-T Assessment and Plan Start: 03/14/18 09:32 Freq: Status: Active Protocol: Document 04/11/18 17:49 [facility] (Rec: 04/11/18 17:54 [facility] [email or web address]) Physical Therapy Assessment Goals 2 Impairment dec strength Short Term Goal (STG) Pt will be independent with HEP in order to improve strength. STG Duration 04/13/18 Care Home Goal (LTG) Pt will have 4/5 LE strength bilaterally in order to participate in physical activity. LTG Duration 05/14/18 1 Impairment pain Short Term Goal (STG) Pt's pain will dec in order for her to particiapte in yoga . STG Duration 04/13/18 Bracelet Form Coverer Goal (LTG) Pt's pain will dec to 3/10 on average throughout her work day. LTG Duration 05/14/18 Assessment Summary Assessment Improved form with ascending stairs, but still required cueing & mirror for decent. Improved rolling mechanics with treatment of mass flex & ext. Physical Therapy Plan Frequency and Duration Frequency of Treatment 2x/Week Duration of Treatment 2 months Plan of Care Start Date 04/13/18 Plan of Care End Date 05/14/18 Next Visit Focus/Plan Next Note Type Treatment Note Next Visit Plan Cont to progress core initiation on R side. Post depression R
--- NOTE | 2018-04-13 17:50 | PT.OTN ---
Current Diagnoses Other specified joint disorders, left hip (04/13/18) Crushing injury of abdomen, lower back, and pelvis, subsequent encounter (04/13/18) Physical Therapy Treatment Note PT-OP-A Visit Information Start: 03/14/18 09:32 Freq: Status: Active Protocol: Document 04/13/18 17:41 [facility] (Rec: 04/13/18 17:50 [facility] [id number]) Out-Patient Physical Therapy Visit Information Visit Information Visit Type Treatment Note Visit Start Time 15:45 Visit Stop Time 16:30 Total Visit Minutes 45 Visit Number 02/18 Number of PING PONG TABLE ASSEMBLER Visits 0 PT-OP-C Subjective Start: 03/14/18 09:32 Freq: Status: Active Protocol: Document 04/13/18 17:41 [facility] (Rec: 04/13/18 17:50 [facility] [email or web address]) OP-PT Subjective Patient Comments Patient Comments Pt reports some abdominal soreness after last treatment. Reports pain in R QL region todayl. PT-OP-Q Treatments Start: 03/14/18 09:32 Freq: Status: Active Protocol: Document 04/13/18 17:41 [facility] (Rec: 04/13/18 17:50 [facility] [email or web address]) Therapeutic Exercises Standing Exercises single leg squats Standing Exercise Name SL squat Reps/Minutes 10 Comments in mirror with 1 hand hold Gait Training Gait Activity stairs Description stairs Comments up with focus on post depression during stand up onto step without rails; step downs with focus on control without rotation w/rail in mirror Manual Therapy Treatment Soft Tissue Mobilization 2 Body Location R QL & ES Mobilization Type Rolling Intensity/Depth Moderate Neuro Re-Education Treatment Other Activities mass flex & ext Details PNF COI mass flex R w/ rolling 1 Details R post depression Comments rhythmic initiation progressed to sustained holds to COI with use of RLE PT-OP-R Modalities Start: 03/14/18 09:32 Freq: Status: Active Protocol: Document 04/11/18 17:49 [facility] (Rec: 04/11/18 17:54 [facility] [email or web address]) Hot Pack/Cold Pack Treatment Cold Pack Location lumbar & R hip ant Patient Position Hooklying Treatment Duration (minutes) 10 PT-OP-T Assessment and Plan Start: 03/14/18 09:32 Freq: Status: Active Protocol: Document 04/13/18 17:41 [facility] (Rec: 04/13/18 17:50 [facility] [email or web address]) Physical Therapy Assessment Goals 2 Impairment dec strength Short Term Goal (STG) Pt will be independent with HEP in order to improve strength. STG Duration 04/13/18 [facility] Goal (LTG) Pt will have 4/5 LE strength bilaterally in order to participate in physical activity. LTG Duration 05/14/18 1 Impairment pain Short Term Goal (STG) Pt's pain will dec in order for her to particiapte in yoga . STG Duration 04/13/18 [facility] Goal (LTG) Pt's pain will dec to 3/10 on average throughout her work day. LTG Duration 05/14/18 Assessment Summary Assessment Pt had dec pain after manual treatment. She presented with significant tightness to paraspinals and QL. She improved with post depression after manual rx Physical Therapy Plan Frequency and Duration Frequency of Treatment 2x/Week Duration of Treatment 2 months Plan of Care Start Date 04/13/18 Plan of Care End Date 05/14/18 Next Visit Focus/Plan Next Note Type Treatment Note Next Visit Plan cont to work pelvic faciliation and core faciliation on R
--- NOTE | 2018-04-18 18:01 | PT.OTN ---
Current Diagnoses Other specified joint disorders, left hip (04/18/18) Crushing injury of abdomen, lower back, and pelvis, subsequent encounter (04/18/18) Physical Therapy Treatment Note PT-OP-A Visit Information Start: 03/14/18 09:32 Freq: Status: Active Protocol: Document 04/18/18 17:53 [facility] (Rec: 04/18/18 18:00 [facility] [email or web address]) Out-Patient Physical Therapy Visit Information Visit Information Visit Type Treatment Note Visit Start Time 15:55 Visit Stop Time 16:35 Total Visit Minutes 40 Visit Number 03/21 PT-OP-C Subjective Start: 03/14/18 09:32 Freq: Status: Active Protocol: Document 04/18/18 17:53 [facility] (Rec: 04/18/18 18:00 [facility] [email or web address]) OP-PT Subjective Patient Comments Patient Comments Pt reports she has been overall feeling good. Did notice that towards the end of the day, she was dragging her feet a little. PT-OP-Q Treatments Start: 03/14/18 09:32 Freq: Status: Active Protocol: Document 04/18/18 17:53 [facility] (Rec: 04/18/18 18:00 [facility] [email or web address]) Therapeutic Exercises Supine Exercises 7 Supine Exercise Name bridge with marching Comments w/traction facilitation 6 Supine Exercise Name abdominal series flex & diagonal Sidelying Exercises 1 Sidelying Exercise Name hip abd Side right Equipment Used L1 & along wall Reps/Minutes 10 Other Exercises 4 Other Exercise Name quadruped alt opp LE & UE lifts Reps/Minutes 5 3 Other Exercise Name quadruped hip ext Equipment Used L2 band Reps/Minutes 10 Manual Therapy Treatment Soft Tissue Mobilization 2 Body Location R QL & ES Mobilization Type Rolling Intensity/Depth Moderate Neuro Re-Education Treatment Other Activities mass flex & ext Details PNF COI mass flex R w/ rolling 1 Details R post depression Comments rhythmic initiation progressed to sustained holds to COI PT-OP-R Modalities Start: 03/14/18 09:32 Freq: Status: Active Protocol: Document 04/11/18 17:49 [facility] (Rec: 04/11/18 17:54 [facility] [email or web address]) Hot Pack/Cold Pack Treatment Cold Pack Location lumbar & R hip ant Patient Position Hooklying Treatment Duration (minutes) 10 PT-OP-T Assessment and Plan Start: 03/14/18 09:32 Freq: Status: Active Protocol: Document 04/18/18 17:53 [facility] (Rec: 04/18/18 18:00 [facility] [email or web address]) Physical Therapy Assessment Goals 2 Impairment dec strength Short Term Goal (STG) Pt will be independent with HEP in order to improve strength. STG Duration 04/13/18 [facility] Goal (LTG) Pt will have 4/5 LE strength bilaterally in order to participate in physical activity. LTG Duration 05/14/18 1 Impairment pain Short Term Goal (STG) Pt's pain will dec in order for her to particiapte in yoga . STG Duration 04/13/18 Milling Machine Operator Gear Goal (LTG) Pt's pain will dec to 3/10 on average throughout her work day. LTG Duration 05/14/18 Assessment Summary Assessment Pt was able to progress exercises without inc pain except bridge. She required faciliation to achieve ability to do bridge with marching without pain. Improved rolling after working through post depression and progressing into mass elongation. Physical Therapy Plan Frequency and Duration Frequency of Treatment 2x/Week Duration of Treatment 2 months Plan of Care Start Date 03/14/18 Plan of Care End Date 05/14/18 Next Visit Focus/Plan Next Note Type Treatment Note Next Visit Plan Cont to work through pelvis motion.
--- NOTE | 2018-04-20 17:35 | PT.OTN ---
Current Diagnoses Other specified joint disorders, left hip (04/20/18) Crushing injury of abdomen, lower back, and pelvis, subsequent encounter (04/20/18) Physical Therapy Treatment Note PT-OP-A Visit Information Start: 03/14/18 09:32 Freq: Status: Active Protocol: Document 04/20/18 16:46 [facility] (Rec: 04/20/18 17:35 [facility] [id number]) Out-Patient Physical Therapy Visit Information Visit Information Visit Type Treatment Note Visit Start Time 16:45 Visit Stop Time 17:27 Total Visit Minutes 42 Visit Number 04/20 PT-OP-C Subjective Start: 03/14/18 09:32 Freq: Status: Active Protocol: Document 04/20/18 16:46 [facility] (Rec: 04/20/18 17:35 [facility] [id number]) OP-PT Subjective Patient Comments Patient Comments Pt reports overall getting better. Cont to have difficulty with catching her toe and doing stairs. Reports pain in coccyx region PT-OP-J Posture/Palpation/Skin Start: 03/14/18 09:32 Freq: Status: Active Protocol: Document 04/20/18 16:46 [facility] (Rec: 04/20/18 17:35 [facility] [id number]) Posture Evaluation Ruslan Postural Classification System Ruslan Postural Classifications Vertical/Posterior Vertebral Compression Test 0 Elbow Flexion Test 3 Lumbar Protective Mechanism Left AP 3 Lumbar Protective Mechanism Right AP 2 Lumbar Protective Mechanism Left PA 2 Lumbar Protective Mechanism Right PA 2 PT-OP-M Strength Start: 03/14/18 09:32 Freq: Status: Active Protocol: Document 04/20/18 16:46 [facility] (Rec: 04/20/18 17:35 [facility] [id number]) Hip Strength Hip Manual Muscle Testing Right Flexion (L2) 5 Normal Extension (S1) 4- Good- Abduction 4+ Good+ External Rotation 4+ Good+ Internal Rotation 4 Good Left Flexion (L2) 5 Normal Extension (S1) 4 Good Abduction 4 Good External Rotation 4- Good- Internal Rotation 4 Good Comments pain w/ER & abd Knee Strength Knee Manual Muscle Testing Right Flexion (S2) 4 Good Extension (L3) 4+ Good+ Left Flexion (S2) 4+ Good+ Extension (L3) 4+ Good+ Ankle/Foot Strength Ankle and Foot Manual Muscle Testing Right Dorsiflexion (L4) 5 Normal Plantarflexion (S1) 5 Normal Left Dorsiflexion (L4) 5 Normal Plantarflexion (S1) 5 Normal PT-OP-Q Treatments Start: 03/14/18 09:32 Freq: Status: Active Protocol: Document 04/20/18 16:46 [facility] (Rec: 04/20/18 17:35 [facility] [id number]) Therapeutic Exercises Supine Exercises 7 Supine Exercise Name bridge with marching Comments w/traction facilitation 6 Supine Exercise Name abdominal series flex & diagonal Sidelying Exercises 1 Sidelying Exercise Name hip abd Side bilateral Equipment Used L1 & Reps/Minutes 10 Standing Exercises single leg squats Standing Exercise Name SL squat Reps/Minutes 10 Comments in mirror with 1 hand hold Other Exercises 3 Other Exercise Name quadruped hip ext Equipment Used L2 band Reps/Minutes 10 Manual Therapy Treatment Joint Mobilizations coccyx Joint coccyx Direction R UPA FM & R trasverse FM Neuro Re-Education Treatment Other Activities 1 Details R post depression & ant elevation Comments isotonic reversals with LE PT-OP-R Modalities Start: 03/14/18 09:32 Freq: Status: Active Protocol: Document 04/11/18 17:49 [facility] (Rec: 04/11/18 17:54 [facility] [id number]) Hot Pack/Cold Pack Treatment Cold Pack Location lumbar & R hip ant Patient Position Hooklying Treatment Duration (minutes) 10 PT-OP-T Assessment and Plan Start: 03/14/18 09:32 Freq: Status: Active Protocol: Document 04/20/18 16:46 [facility] (Rec: 04/20/18 17:35 [facility] [id number]) Physical Therapy Assessment Goals core Impairment core Short Term Goal (STG) improved core stability as demonatrated by 5/5 VCT, EFT, & LPM. STG Duration 05/21/18 [facility] Goal (LTG) gait pattern to normal pelvic motions without pain LTG Duration 06/21/18 2 Impairment dec strength Short Term Goal (STG) Pt will be independent with HEP in order to improve strength. STG Duration 04/13/18-achieved progressing as tolerated [facility] Goal (LTG) Pt will have 4/5 LE strength bilaterally in order to participate in physical activity. LTG Duration 06/14/18-significantly improved 1 Impairment pain Short Term Goal (STG) Pt's pain will dec in order for her to particiapte in yoga . STG Duration achieved Financial Administration Officer Goal (LTG) Pt's pain will dec to 3/10 on average throughout her work day. LTG Duration achieved pain 1-2/10 Assessment Summary Assessment Pt did much better with exercises today with min cueing for form with exercises . Pt had improved coccyx position after mobilizations. Pt had difficulty with isotonic reversals, but after working through range, improvement in faciliation was made. Pt is improving in LE strength, gait mechanics and core stability, but cont to have weakness and impaired gait mechanics. Physical Therapy Plan Frequency and Duration Frequency of Treatment 2x/Week Duration of Treatment 2 months Plan of Care Start Date 04/20/18 Plan of Care End Date 06/21/18 Therapeutic Interventions Therapeutic Interventions Aquatic Therapy Balance Training Gait Training Home Exercise Program Joint Mobilizations Manual Therapy Neuromuscular Re-education Patient/Caregiver Education Self-Care/Home Management Soft Tissue Mobilization Taping Therapeutic Activities Therapeutic Exercises Modalities Cold Pack/Ice Massage Electric Stimulation Hot Packs Infrared Therapy Iontophoresis Traction- Mechanical Ultrasound Next Visit Focus/Plan Next Note Type Treatment Note Next Visit Plan Cont to work on R sided core faciliation & pelvic patterns with functional mobility
--- NOTE | 2018-04-20 17:36 | PT.OPPOC ---
Current Diagnoses Other specified joint disorders, left hip (04/20/18) Crushing injury of abdomen, lower back, and pelvis, subsequent encounter (04/20/18) Provider Visit Care Team Role Provider Type Mei Sun PA-C Attending Provider Advanced Fruit Sprayer Family Provider Primary Care Provider Specialty: Internal Medicine Address: [address] [place] [address], [id number] Email: Plan Of Care PT-OP-T Assessment and Plan Start: 03/14/18 09:32 Freq: Status: Active Protocol: Document 04/20/18 16:46 [facility] (Rec: 04/20/18 17:35 [facility] [id number]) Physical Therapy Assessment Goals core Impairment core Short Term Goal (STG) improved core stability as demonatrated by 5/5 VCT, EFT, & LPM. STG Duration 05/21/18 Packing Clerk Goal (LTG) gait pattern to normal pelvic motions without pain LTG Duration 06/21/18 2 Impairment dec strength Short Term Goal (STG) Pt will be independent with HEP in order to improve strength. STG Duration 04/13/18-achieved progressing as tolerated Packing Clerk Goal (LTG) Pt will have 4/5 LE strength bilaterally in order to participate in physical activity. LTG Duration 06/14/18-significantly improved 1 Impairment pain Short Term Goal (STG) Pt's pain will dec in order for her to particiapte in yoga . STG Duration achieved Packing Clerk Goal (LTG) Pt's pain will dec to 3/10 on average throughout her work day. LTG Duration achieved pain 1-2/10 Assessment Summary Assessment Pt did much better with exercises today with min cueing for form with exercises . Pt had improved coccyx position after mobilizations. Pt had difficulty with isotonic reversals, but after working through range, improvement in faciliation was made. Pt is improving in LE strength, gait mechanics and core stability, but cont to have weakness and impaired gait mechanics. Physical Therapy Plan Frequency and Duration Frequency of Treatment 2x/Week Duration of Treatment 2 months Plan of Care Start Date 04/20/18 Plan of Care End Date 06/21/18 Therapeutic Interventions Therapeutic Interventions Aquatic Therapy Balance Training Gait Training Home Exercise Program Joint Mobilizations Manual Therapy Neuromuscular Re-education Patient/Caregiver Education Self-Care/Home Management Soft Tissue Mobilization Taping Therapeutic Activities Therapeutic Exercises Modalities Cold Pack/Ice Massage Electric Stimulation Hot Packs Infrared Therapy Iontophoresis Traction- Mechanical Ultrasound Next Visit Focus/Plan Next Note Type Treatment Note Next Visit Plan Cont to work on R sided core faciliation & pelvic patterns with functional mobility Plan of Care Dates Plan of Care Start Date 04/20/18 Plan of Care End Date 06/21/18 Please Sign and Return: I have reviewed this Plan of Care and certify that the skilled therapy services above are required to meet the patient?s needs. Physician Signature Date Printed Name and Credentials Clinical Instructor Signature Printed Name and Credentials
--- NOTE | 2018-04-25 17:30 | PT.OTN ---
Current Diagnoses Other specified joint disorders, left hip (04/25/18) Crushing injury of abdomen, lower back, and pelvis, subsequent encounter (04/25/18) Physical Therapy Treatment Note PT-OP-A Visit Information Start: 03/14/18 09:32 Freq: Status: Active Protocol: Document 04/25/18 16:20 [facility] (Rec: 04/26/18 16:26 [facility] [email or web address]) Out-Patient Physical Therapy Visit Information Visit Information Visit Type Treatment Note Visit Start Time 16:45 Visit Stop Time 17:30 Total Visit Minutes 45 PT-OP-C Subjective Start: 03/14/18 09:32 Freq: Status: Active Protocol: Document 04/25/18 16:20 [facility] (Rec: 04/26/18 16:26 [facility] [id number]) OP-PT Subjective Patient Comments Patient Comments Pt reports overall doing well. Feels like she notices pain the most often with stairs and notes in sacral/coccyx area. PT-OP-J Posture/Palpation/Skin Start: 03/14/18 09:32 Freq: Status: Active Protocol: Document 04/20/18 16:46 [facility] (Rec: 04/20/18 17:35 [facility] [id number]) Posture Evaluation Ruslan Postural Classification System Ruslan Postural Classifications Vertical/Posterior Vertebral Compression Test 0 Elbow Flexion Test 3 Lumbar Protective Mechanism Left AP 3 Lumbar Protective Mechanism Right AP 2 Lumbar Protective Mechanism Left PA 2 Lumbar Protective Mechanism Right PA 2 PT-OP-M Strength Start: 03/14/18 09:32 Freq: Status: Active Protocol: Document 04/20/18 16:46 [facility] (Rec: 04/20/18 17:35 [facility] [id number]) Hip Strength Hip Manual Muscle Testing Right Flexion (L2) 5 Normal Extension (S1) 4- Good- Abduction 4+ Good+ External Rotation 4+ Good+ Internal Rotation 4 Good Left Flexion (L2) 5 Normal Extension (S1) 4 Good Abduction 4 Good External Rotation 4- Good- Internal Rotation 4 Good Comments pain w/ER & abd Knee Strength Knee Manual Muscle Testing Right Flexion (S2) 4 Good Extension (L3) 4+ Good+ Left Flexion (S2) 4+ Good+ Extension (L3) 4+ Good+ Ankle/Foot Strength Ankle and Foot Manual Muscle Testing Right Dorsiflexion (L4) 5 Normal Plantarflexion (S1) 5 Normal Left Dorsiflexion (L4) 5 Normal Plantarflexion (S1) 5 Normal PT-OP-Q Treatments Start: 03/14/18 09:32 Freq: Status: Active Protocol: Document 04/25/18 16:20 [facility] (Rec: 04/26/18 16:26 [facility] [id number]) Gym Equipment Shuttle Balance red clips Details WBOS, NBOS & staggered stance fwd; WBOS & NBOS side Gait Training Gait Activity stairs Description stairs Comments up with focus on post depression during stand up onto step without rails; step downs with focus on control without rotation w/rail in mirror gait Description facilitated gait for ant elevation Manual Therapy Treatment Soft Tissue Mobilization 2 Body Location B QL & ES Mobilization Type Rolling Intensity/Depth Moderate Neuro Re-Education Treatment Other Activities ant depression Details ant depression COI Comments w/progression into LE PT-OP-R Modalities Start: 03/14/18 09:32 Freq: Status: Active Protocol: Document 04/11/18 17:49 [facility] (Rec: 04/11/18 17:54 [facility] [id number]) Hot Pack/Cold Pack Treatment Cold Pack Location lumbar & R hip ant Patient Position Hooklying Treatment Duration (minutes) 10 PT-OP-T Assessment and Plan Start: 03/14/18 09:32 Freq: Status: Active Protocol: Document 04/25/18 16:20 [facility] (Rec: 04/26/18 16:26 [facility] [id number]) Physical Therapy Assessment Goals core Impairment core Short Term Goal (STG) improved core stability as demonatrated by 5/5 VCT, EFT, & LPM. STG Duration 05/21/18 [facility] Goal (LTG) gait pattern to normal pelvic motions without pain LTG Duration 06/21/18 2 Impairment dec strength Short Term Goal (STG) Pt will be independent with HEP in order to improve strength. STG Duration 04/13/18-achieved progressing as tolerated [facility] Goal (LTG) Pt will have 4/5 LE strength bilaterally in order to participate in physical activity. LTG Duration 06/14/18-significantly improved 1 Impairment pain Short Term Goal (STG) Pt's pain will dec in order for her to particiapte in yoga . STG Duration achieved Kitchen Cleaner Goal (LTG) Pt's pain will dec to 3/10 on average throughout her work day. LTG Duration achieved pain 1-2/10 Assessment Summary Assessment Pt is improving with stair motion and with gait noted difficulty with ant depression . Pt has tightness in QL that contributes to this impairment . Physical Therapy Plan Frequency and Duration Frequency of Treatment 2x/Week Duration of Treatment 2 months Plan of Care Start Date 04/20/18 Plan of Care End Date 06/21/18 Next Visit Focus/Plan Next Note Type Treatment Note Next Visit Plan cont to work on ant depression
--- NOTE | 2018-04-27 17:56 | PT.OTN ---
Current Diagnoses Other specified joint disorders, left hip (04/27/18) Crushing injury of abdomen, lower back, and pelvis, subsequent encounter (04/27/18) Physical Therapy Treatment Note PT-OP-A Visit Information Start: 03/14/18 09:32 Freq: Status: Active Protocol: Document 04/27/18 17:52 [facility] (Rec: 04/27/18 17:56 [facility] [id number]) Out-Patient Physical Therapy Visit Information Visit Information Visit Type Treatment Note Visit Start Time 16:45 Visit Stop Time 17:40 Total Visit Minutes 55 PT-OP-C Subjective Start: 03/14/18 09:32 Freq: Status: Active Protocol: Document 04/27/18 17:52 [facility] (Rec: 04/27/18 17:56 [facility] [id number]) OP-PT Subjective Patient Comments Patient Comments Pt reports she is noticing pain typically happens towards the end of her days. Reports soreness today in sacrum. PT-OP-J Posture/Palpation/Skin Start: 03/14/18 09:32 Freq: Status: Active Protocol: Document 04/20/18 16:46 [facility] (Rec: 04/20/18 17:35 [facility] [id number]) Posture Evaluation Ruslan Postural Classification System Ruslan Postural Classifications Vertical/Posterior Vertebral Compression Test 0 Elbow Flexion Test 3 Lumbar Protective Mechanism Left AP 3 Lumbar Protective Mechanism Right AP 2 Lumbar Protective Mechanism Left PA 2 Lumbar Protective Mechanism Right PA 2 PT-OP-M Strength Start: 03/14/18 09:32 Freq: Status: Active Protocol: Document 04/20/18 16:46 [facility] (Rec: 04/20/18 17:35 [facility] [id number]) Hip Strength Hip Manual Muscle Testing Right Flexion (L2) 5 Normal Extension (S1) 4- Good- Abduction 4+ Good+ External Rotation 4+ Good+ Internal Rotation 4 Good Left Flexion (L2) 5 Normal Extension (S1) 4 Good Abduction 4 Good External Rotation 4- Good- Internal Rotation 4 Good Comments pain w/ER & abd Knee Strength Knee Manual Muscle Testing Right Flexion (S2) 4 Good Extension (L3) 4+ Good+ Left Flexion (S2) 4+ Good+ Extension (L3) 4+ Good+ Ankle/Foot Strength Ankle and Foot Manual Muscle Testing Right Dorsiflexion (L4) 5 Normal Plantarflexion (S1) 5 Normal Left Dorsiflexion (L4) 5 Normal Plantarflexion (S1) 5 Normal PT-OP-Q Treatments Start: 03/14/18 09:32 Freq: Status: Active Protocol: Document 04/27/18 17:52 [facility] (Rec: 04/27/18 17:56 [facility] [id number]) Manual Therapy Treatment Soft Tissue Mobilization 3 Body Location piriformis R Mobilization Type Rolling Sustained Pressure 2 Body Location B QL & ES Mobilization Type Rolling Intensity/Depth Moderate Comments in danie pose position 1 Body Location iliacus R Mobilization Type Rolling Sustained Pressure Joint Mobilizations 3 Joint innominate Direction caudal R, ER R FM, flex R FM 2 Joint sacrum Direction UPA L FM 1 Joint hip Direction on axis ER FM & inf glide FM PT-OP-R Modalities Start: 03/14/18 09:32 Freq: Status: Active Protocol: Document 04/27/18 17:52 [facility] (Rec: 04/27/18 17:56 [facility] [id number]) Hot Pack/Cold Pack Treatment Cold Pack Location lumbar Patient Position Hooklying Treatment Duration (minutes) 10 PT-OP-T Assessment and Plan Start: 03/14/18 09:32 Freq: Status: Active Protocol: Document 04/27/18 17:52 [facility] (Rec: 04/27/18 17:56 [facility] [id number]) Physical Therapy Assessment Goals core Impairment core Short Term Goal (STG) improved core stability as demonatrated by 5/5 VCT, EFT, & LPM. STG Duration 05/21/18 [facility] Goal (LTG) gait pattern to normal pelvic motions without pain LTG Duration 06/21/18 2 Impairment dec strength Short Term Goal (STG) Pt will be independent with HEP in order to improve strength. STG Duration 04/13/18-achieved progressing as tolerated [facility] Goal (LTG) Pt will have 4/5 LE strength bilaterally in order to participate in physical activity. LTG Duration 06/14/18-significantly improved Assessment Summary Assessment Pt was ant rotated on R and elevated on R innominate. Pt improved with treatment with no leg length discrepency at the end of session. Physical Therapy Plan Frequency and Duration Frequency of Treatment 2x/Week Duration of Treatment 2 months Plan of Care Start Date 04/20/18 Plan of Care End Date 06/21/18 Next Visit Focus/Plan Next Note Type Treatment Note Next Visit Plan cont to work on ant depression
--- NOTE | 2018-05-04 17:13 | PT.OTN ---
Current Diagnoses Other specified joint disorders, left hip (05/04/18) Crushing injury of abdomen, lower back, and pelvis, subsequent encounter (05/04/18) Physical Therapy Treatment Note PT-OP-A Visit Information Start: 03/14/18 09:32 Freq: Status: Active Protocol: Document 05/04/18 17:07 [facility] (Rec: 05/04/18 17:13 [facility] [id number]) Out-Patient Physical Therapy Visit Information Visit Information Visit Type Treatment Note Visit Start Time 16:00 Visit Stop Time 16:55 Total Visit Minutes 55 PT-OP-C Subjective Start: 03/14/18 09:32 Freq: Status: Active Protocol: Document 05/04/18 17:07 [facility] (Rec: 05/04/18 17:13 [facility] [id number]) OP-PT Subjective Patient Comments Patient Comments Pt reports she has some soreness in her sacral area today. Reports that she has had some tightness in HS. PT-OP-J Posture/Palpation/Skin Start: 03/14/18 09:32 Freq: Status: Active Protocol: Document 04/20/18 16:46 [facility] (Rec: 04/20/18 17:35 [facility] [id number]) Posture Evaluation Ruslan Postural Classification System Ruslan Postural Classifications Vertical/Posterior Vertebral Compression Test 0 Elbow Flexion Test 3 Lumbar Protective Mechanism Left AP 3 Lumbar Protective Mechanism Right AP 2 Lumbar Protective Mechanism Left PA 2 Lumbar Protective Mechanism Right PA 2 PT-OP-M Strength Start: 03/14/18 09:32 Freq: Status: Active Protocol: Document 04/20/18 16:46 [facility] (Rec: 04/20/18 17:35 [facility] [id number]) Hip Strength Hip Manual Muscle Testing Right Flexion (L2) 5 Normal Extension (S1) 4- Good- Abduction 4+ Good+ External Rotation 4+ Good+ Internal Rotation 4 Good Left Flexion (L2) 5 Normal Extension (S1) 4 Good Abduction 4 Good External Rotation 4- Good- Internal Rotation 4 Good Comments pain w/ER & abd Knee Strength Knee Manual Muscle Testing Right Flexion (S2) 4 Good Extension (L3) 4+ Good+ Left Flexion (S2) 4+ Good+ Extension (L3) 4+ Good+ Ankle/Foot Strength Ankle and Foot Manual Muscle Testing Right Dorsiflexion (L4) 5 Normal Plantarflexion (S1) 5 Normal Left Dorsiflexion (L4) 5 Normal Plantarflexion (S1) 5 Normal PT-OP-Q Treatments Start: 03/14/18 09:32 Freq: Status: Active Protocol: Document 05/04/18 17:07 [facility] (Rec: 05/04/18 17:13 [facility] [id number]) Gait Training Gait Activity exaggerated gait Description exaggerated post dep/ant elevation with marching gait Description gait focus on dec trunk rotation Manual Therapy Treatment Soft Tissue Mobilization 4 Body Location HS L Mobilization Type Rolling Comments FM w/ knee ext 2 Body Location R QL & ES Mobilization Type Rolling Intensity/Depth Moderate Comments in danie pose position 1 Body Location iliacus L Mobilization Type Rolling Sustained Pressure Comments in mundo test position Joint Mobilizations 3 Joint innominate Direction ext L FM Neuro Re-Education Treatment Other Activities ant depression Details ant depression COI Comments w/progression into LE R 1 Details L post depression isometric to COI Comments w/LLE PT-OP-R Modalities Start: 03/14/18 09:32 Freq: Status: Active Protocol: Document 05/04/18 17:07 [facility] (Rec: 05/04/18 17:13 [facility] [id number]) Hot Pack/Cold Pack Treatment Cold Pack Location lumbar Patient Position Hooklying Treatment Duration (minutes) 10 PT-OP-T Assessment and Plan Start: 03/14/18 09:32 Freq: Status: Active Protocol: Document 05/04/18 17:07 [facility] (Rec: 05/04/18 17:13 [facility] [id number]) Physical Therapy Assessment Goals core Impairment core Short Term Goal (STG) improved core stability as demonatrated by 5/5 VCT, EFT, & LPM. STG Duration 05/21/18 [employer]ake [employer] Goal (LTG) gait pattern to normal pelvic motions without pain LTG Duration 06/21/18 2 Impairment dec strength Short Term Goal (STG) Pt will be independent with HEP in order to improve strength. STG Duration 04/13/18-achieved progressing as tolerated Detention Goal (LTG) Pt will have 4/5 LE strength bilaterally in order to participate in physical activity. LTG Duration 06/14/18-significantly improved Assessment Summary Assessment Pt had improved R ant depression after QL soft tissue release & improved L post depression after L HS release. Improved gait after exaggerated marching exercise. Physical Therapy Plan Frequency and Duration Frequency of Treatment 2x/Week Duration of Treatment 2 months Plan of Care Start Date 04/20/18 Plan of Care End Date 06/21/18 Next Visit Focus/Plan Next Note Type Treatment Note Next Visit Plan cont to work on gait mechanics
--- NOTE | 2018-05-11 17:53 | PT.OTN ---
Current Diagnoses Other specified joint disorders, left hip (05/11/18) Crushing injury of abdomen, lower back, and pelvis, subsequent encounter (05/11/18) Physical Therapy Treatment Note PT-OP-A Visit Information Start: 03/14/18 09:32 Freq: Status: Active Protocol: Document 05/11/18 17:45 [facility] (Rec: 05/11/18 17:53 [facility] [id number]) Out-Patient Physical Therapy Visit Information Visit Information Visit Type Treatment Note Visit Start Time 16:50 Visit Stop Time 17:45 Total Visit Minutes 55 Visit Number 08/23 PT-OP-C Subjective Start: 03/14/18 09:32 Freq: Status: Active Protocol: Document 05/11/18 17:45 [facility] (Rec: 05/11/18 17:53 [facility] [id number]) OP-PT Subjective Patient Comments Patient Comments Pt reports she has been noticing pain sometimes when walking, mostly w/R stance. Noted she tripped up the stairs with RLE on Wednesday. PT-OP-J Posture/Palpation/Skin Start: 03/14/18 09:32 Freq: Status: Active Protocol: Document 04/20/18 16:46 [facility] (Rec: 04/20/18 17:35 [facility] [id number]) Posture Evaluation Ruslan Postural Classification System Ruslan Postural Classifications Vertical/Posterior Vertebral Compression Test 0 Elbow Flexion Test 3 Lumbar Protective Mechanism Left AP 3 Lumbar Protective Mechanism Right AP 2 Lumbar Protective Mechanism Left PA 2 Lumbar Protective Mechanism Right PA 2 PT-OP-M Strength Start: 03/14/18 09:32 Freq: Status: Active Protocol: Document 04/20/18 16:46 [facility] (Rec: 04/20/18 17:35 [facility] [id number]) Hip Strength Hip Manual Muscle Testing Right Flexion (L2) 5 Normal Extension (S1) 4- Good- Abduction 4+ Good+ External Rotation 4+ Good+ Internal Rotation 4 Good Left Flexion (L2) 5 Normal Extension (S1) 4 Good Abduction 4 Good External Rotation 4- Good- Internal Rotation 4 Good Comments pain w/ER & abd Knee Strength Knee Manual Muscle Testing Right Flexion (S2) 4 Good Extension (L3) 4+ Good+ Left Flexion (S2) 4+ Good+ Extension (L3) 4+ Good+ Ankle/Foot Strength Ankle and Foot Manual Muscle Testing Right Dorsiflexion (L4) 5 Normal Plantarflexion (S1) 5 Normal Left Dorsiflexion (L4) 5 Normal Plantarflexion (S1) 5 Normal PT-OP-Q Treatments Start: 03/14/18 09:32 Freq: Status: Active Protocol: Document 05/11/18 17:45 [facility] (Rec: 05/11/18 17:53 [facility] [id number]) Gait Training Gait Activity running Description foucs on posture & push off w/ knee ext exaggerated gait Description exaggerated post dep/ant elevation with marching gait Description gait focus on dec trunk rotation Comments focus on full push off Manual Therapy Treatment Soft Tissue Mobilization 3 Body Location piriformis R Mobilization Type Rolling Sustained Pressure 1 Body Location iliacus R Mobilization Type Rolling Sustained Pressure Joint Mobilizations 3 Joint innominate Direction ER, caudal glide R FM 2 Joint sacrum Direction UPA R sup & inf FM 1 Joint hip Direction on axis ER FM PT-OP-R Modalities Start: 03/14/18 09:32 Freq: Status: Active Protocol: Document 05/11/18 17:45 [facility] (Rec: 05/11/18 17:53 [facility] [id number]) Hot Pack/Cold Pack Treatment Cold Pack Location lumbar Patient Position Hooklying Treatment Duration (minutes) 10 PT-OP-T Assessment and Plan Start: 03/14/18 09:32 Freq: Status: Active Protocol: Document 05/11/18 17:45 [facility] (Rec: 05/11/18 17:53 [place] [id number]) Physical Therapy Assessment Goals core Impairment core Short Term Goal (STG) improved core stability as demonatrated by 5/5 VCT, EFT, & LPM. STG Duration 05/21/18 [employer] Goal (LTG) gait pattern to normal pelvic motions without pain LTG Duration 06/21/18 2 Impairment dec strength Short Term Goal (STG) Pt will be independent with HEP in order to improve strength. STG Duration 04/13/18-achieved progressing as tolerated [facility] Goal (LTG) Pt will have 4/5 LE strength bilaterally in order to participate in physical activity. LTG Duration 06/14/18-significantly improved Assessment Summary Assessment Pt did better with running form after cueing for push off and post depression. She cont to difficulty with post depression with amb. Quick review of posture helped pt improve gait mechanics. Significant R sided pelvis & hip restrictions likely creating R side pain. Improved with mobilization and after pt did not have pain w/ER. Physical Therapy Plan Frequency and Duration Frequency of Treatment 2x/Week Duration of Treatment 2 months Plan of Care Start Date 04/20/18 Plan of Care End Date 06/21/18 Next Visit Focus/Plan Next Note Type Treatment Note Next Visit Plan Progress push off with running & walking
--- NOTE | 2018-05-18 10:32 | PT.OTN ---
Current Diagnoses Other specified joint disorders, left hip (05/18/18) Crushing injury of abdomen, lower back, and pelvis, subsequent encounter (05/18/18) Physical Therapy Treatment Note PT-OP-A Visit Information Start: 03/14/18 09:32 Freq: Status: Active Protocol: Document 05/18/18 09:44 [facility] (Rec: 05/18/18 10:32 [facility] [id number]) Out-Patient Physical Therapy Visit Information Visit Information Visit Type Treatment Note Visit Start Time 09:45 Visit Stop Time 10:35 Total Visit Minutes 50 Visit Number 09/22 PT-OP-C Subjective Start: 03/14/18 09:32 Freq: Status: Active Protocol: Document 05/18/18 09:44 [facility] (Rec: 05/18/18 10:32 [facility] [id number]) OP-PT Subjective Patient Comments Patient Comments Pt reports she has been stretching mult times daily. She has overall been doing well and just having some soreness in LB and snapping of add with certain movements PT-OP-J Posture/Palpation/Skin Start: 03/14/18 09:32 Freq: Status: Active Protocol: Document 04/20/18 16:46 [facility] (Rec: 04/20/18 17:35 [facility] [id number]) Posture Evaluation Ruslan Postural Classification System Ruslan Postural Classifications Vertical/Posterior Vertebral Compression Test 0 Elbow Flexion Test 3 Lumbar Protective Mechanism Left AP 3 Lumbar Protective Mechanism Right AP 2 Lumbar Protective Mechanism Left PA 2 Lumbar Protective Mechanism Right PA 2 PT-OP-M Strength Start: 03/14/18 09:32 Freq: Status: Active Protocol: Document 04/20/18 16:46 [facility] (Rec: 04/20/18 17:35 [facility] [id number]) Hip Strength Hip Manual Muscle Testing Right Flexion (L2) 5 Normal Extension (S1) 4- Good- Abduction 4+ Good+ External Rotation 4+ Good+ Internal Rotation 4 Good Left Flexion (L2) 5 Normal Extension (S1) 4 Good Abduction 4 Good External Rotation 4- Good- Internal Rotation 4 Good Comments pain w/ER & abd Knee Strength Knee Manual Muscle Testing Right Flexion (S2) 4 Good Extension (L3) 4+ Good+ Left Flexion (S2) 4+ Good+ Extension (L3) 4+ Good+ Ankle/Foot Strength Ankle and Foot Manual Muscle Testing Right Dorsiflexion (L4) 5 Normal Plantarflexion (S1) 5 Normal Left Dorsiflexion (L4) 5 Normal Plantarflexion (S1) 5 Normal PT-OP-Q Treatments Start: 03/14/18 09:32 Freq: Status: Active Protocol: Document 05/18/18 09:44 [facility] (Rec: 05/18/18 10:32 [facility] [id number]) Therapeutic Exercises Other Exercises 4 Other Exercise Name plank with hands on bosu 3 Other Exercise Name hand and foot plank with knee drives to side Side bilateral Reps/Minutes 5 2 Other Exercise Name plank on forearms & feet then to knees then to quadruped Comments position change when pt fatigues 1 Other Exercise Name trial of balance boards Comments 1/2 ball baps, bosu & tilt Manual Therapy Treatment Soft Tissue Mobilization 4 Body Location HS R Mobilization Type Rolling Comments FM w/ knee ext 2 Body Location R QL & ES Mobilization Type Rolling Intensity/Depth Moderate 1 Body Location R adductor Mobilization Type Rolling Sustained Pressure PT-OP-R Modalities Start: 03/14/18 09:32 Freq: Status: Active Protocol: Document 05/18/18 09:44 [facility] (Rec: 05/18/18 10:32 [facility] [id number]) Hot Pack/Cold Pack Treatment Cold Pack Location lumbar Patient Position Hooklying Treatment Duration (minutes) 10 PT-OP-T Assessment and Plan Start: 03/14/18 09:32 Freq: Status: Active Protocol: Document 05/18/18 09:44 [facility] (Rec: 05/18/18 10:32 [facility] [id number]) Physical Therapy Assessment Goals core Impairment core Short Term Goal (STG) improved core stability as demonatrated by 5/5 VCT, EFT, & LPM. STG Duration 05/21/18 [facility] Goal (LTG) gait pattern to normal pelvic motions without pain LTG Duration 06/21/18 2 Impairment dec strength Short Term Goal (STG) Pt will be independent with HEP in order to improve strength. STG Duration 04/13/18-achieved progressing as tolerated Sorting Supervisor Goal (LTG) Pt will have 4/5 LE strength bilaterally in order to participate in physical activity. LTG Duration 06/14/18-significantly improved Assessment Summary Assessment Pt is progressing well overall but does fatigue quickly with core exercises. Pt cont to have RLE tightness which likely creates popping feeling . Bosu best option for pt home exercising. Physical Therapy Plan Frequency and Duration Frequency of Treatment 2x/Week Duration of Treatment 2 months Plan of Care Start Date 04/20/18 Plan of Care End Date 06/21/18 Next Visit Focus/Plan Next Note Type Treatment Note Next Visit Plan progress push off as needed
--- NOTE | 2018-05-20 14:24 | PT.OTN ---
Current Diagnoses Other specified joint disorders, left hip (05/20/18) Crushing injury of abdomen, lower back, and pelvis, subsequent encounter (05/20/18) Physical Therapy Treatment Note PT-OP-A Visit Information Start: 03/14/18 09:32 Freq: Status: Active Protocol: Document 05/20/18 14:12 [facility] (Rec: 05/20/18 14:24 [facility] [id number]) Out-Patient Physical Therapy Visit Information Visit Information Visit Type Treatment Note Visit Start Time 10:30 Visit Stop Time 11:25 Total Visit Minutes 55 Visit Number 10/23 PT-OP-C Subjective Start: 03/14/18 09:32 Freq: Status: Active Protocol: Document 05/20/18 14:12 [facility] (Rec: 05/20/18 14:24 [facility] [id number]) OP-PT Subjective Patient Comments Patient Comments Pt reports her abdominals were very sore after last session. PT-OP-J Posture/Palpation/Skin Start: 03/14/18 09:32 Freq: Status: Active Protocol: Document 04/20/18 16:46 [facility] (Rec: 04/20/18 17:35 [facility] [id number]) Posture Evaluation Ruslan Postural Classification System Ruslan Postural Classifications Vertical/Posterior Vertebral Compression Test 0 Elbow Flexion Test 3 Lumbar Protective Mechanism Left AP 3 Lumbar Protective Mechanism Right AP 2 Lumbar Protective Mechanism Left PA 2 Lumbar Protective Mechanism Right PA 2 PT-OP-M Strength Start: 03/14/18 09:32 Freq: Status: Active Protocol: Document 04/20/18 16:46 [facility] (Rec: 04/20/18 17:35 [facility] [id number]) Hip Strength Hip Manual Muscle Testing Right Flexion (L2) 5 Normal Extension (S1) 4- Good- Abduction 4+ Good+ External Rotation 4+ Good+ Internal Rotation 4 Good Left Flexion (L2) 5 Normal Extension (S1) 4 Good Abduction 4 Good External Rotation 4- Good- Internal Rotation 4 Good Comments pain w/ER & abd Knee Strength Knee Manual Muscle Testing Right Flexion (S2) 4 Good Extension (L3) 4+ Good+ Left Flexion (S2) 4+ Good+ Extension (L3) 4+ Good+ Ankle/Foot Strength Ankle and Foot Manual Muscle Testing Right Dorsiflexion (L4) 5 Normal Plantarflexion (S1) 5 Normal Left Dorsiflexion (L4) 5 Normal Plantarflexion (S1) 5 Normal PT-OP-Q Treatments Start: 03/14/18 09:32 Freq: Status: Active Protocol: Document 05/20/18 14:12 [facility] (Rec: 05/20/18 14:24 [facility] [id number]) Gym Equipment Therapeutic Ball scaption Exercise Details B scaption Ball Size/Color 65 Body Position Prone Comments focus on neutral core; 2lb then tband ext Exercise Details shoulder ext B Ball Size/Color 65 Body Position Prone Comments focus on neutral core; 3lb then tband HAbd Exercise Details shoulder HAbd Ball Size/Color 65 Body Position Prone Comments focus on neutral core; 3lb then tband 2 Exercise Details seated marches w/alt arm lifts Ball Size/Color 65 Reps/Duration 10 1 Exercise Details knee ext w/arms overhead Body Position Sitting Reps/Duration 10 Therapeutic Exercises Other Exercises 4 Other Exercise Name side planks Reps/Minutes 20 sec Comments bent knee 3 Other Exercise Name ball walk outs Reps/Minutes 3 2 Other Exercise Name plank on forearms & feet then to knees then to quadruped Comments position change when pt fatigues Manual Therapy Treatment Soft Tissue Mobilization 4 Body Location HS R Mobilization Type Rolling Comments FM w/ knee ext 2 Body Location R QL & ES Mobilization Type Rolling Intensity/Depth Moderate 1 Body Location R adductor Mobilization Type Rolling Sustained Pressure PT-OP-R Modalities Start: 03/14/18 09:32 Freq: Status: Active Protocol: Document 05/20/18 14:12 [facility] (Rec: 05/20/18 14:24 [facility] [id number]) Hot Pack/Cold Pack Treatment Cold Pack Location lumbar Patient Position Hooklying Treatment Duration (minutes) 10 PT-OP-T Assessment and Plan Start: 03/14/18 09:32 Freq: Status: Active Protocol: Document 05/20/18 14:12 [facility] (Rec: 05/20/18 14:24 [facility] [id number]) Physical Therapy Assessment Goals core Impairment core Short Term Goal (STG) improved core stability as demonatrated by /5 VCT, EFT, & LPM. STG Duration 05/21/18 [facility] Goal (LTG) gait pattern to normal pelvic motions without pain LTG Duration 06/21/18 2 Impairment dec strength Short Term Goal (STG) Pt will be independent with HEP in order to improve strength. STG Duration 04/13/18-achieved progressing as tolerated Management Intern Goal (LTG) Pt will have 4/5 LE strength bilaterally in order to participate in physical activity. LTG Duration 06/14/18-significantly improved Assessment Summary Assessment Pt able to tolerate progression of core exercises with minimal pain. She cont to have tightness through RLE. Physical Therapy Plan Frequency and Duration Frequency of Treatment 2x/Week Duration of Treatment 2 months Plan of Care Start Date 04/20/18 Plan of Care End Date 06/21/18 Next Visit Focus/Plan Next Note Type Treatment Note Next Visit Plan Advance core as tolerated; quadruped
--- NOTE | 2018-05-27 16:21 | PT.OTN ---
Current Diagnoses Other specified joint disorders, left hip (05/27/18) Crushing injury of abdomen, lower back, and pelvis, subsequent encounter (05/27/18) Physical Therapy Treatment Note PT-OP-A Visit Information Start: 03/14/18 09:32 Freq: Status: Active Protocol: Document 05/27/18 16:01 [facility] (Rec: 05/27/18 16:20 [facility] [id number]) Out-Patient Physical Therapy Visit Information Visit Information Visit Type Treatment Note Visit Start Time 14:30 Visit Stop Time 15:25 Total Visit Minutes 55 Visit Number 11/22 PT-OP-C Subjective Start: 03/14/18 09:32 Freq: Status: Active Protocol: Document 05/27/18 16:01 [facility] (Rec: 05/27/18 16:20 [facility] [id number]) OP-PT Subjective Patient Comments Patient Comments Pt reports doing daily planks PT-OP-J Posture/Palpation/Skin Start: 03/14/18 09:32 Freq: Status: Active Protocol: Document 04/20/18 16:46 [facility] (Rec: 04/20/18 17:35 [facility] [id number]) Posture Evaluation Ruslan Postural Classification System Ruslan Postural Classifications Vertical/Posterior Vertebral Compression Test 0 Elbow Flexion Test 3 Lumbar Protective Mechanism Left AP 3 Lumbar Protective Mechanism Right AP 2 Lumbar Protective Mechanism Left PA 2 Lumbar Protective Mechanism Right PA 2 PT-OP-M Strength Start: 03/14/18 09:32 Freq: Status: Active Protocol: Document 04/20/18 16:46 [facility] (Rec: 04/20/18 17:35 [facility] [id number]) Hip Strength Hip Manual Muscle Testing Right Flexion (L2) 5 Normal Extension (S1) 4- Good- Abduction 4+ Good+ External Rotation 4+ Good+ Internal Rotation 4 Good Left Flexion (L2) 5 Normal Extension (S1) 4 Good Abduction 4 Good External Rotation 4- Good- Internal Rotation 4 Good Comments pain w/ER & abd Knee Strength Knee Manual Muscle Testing Right Flexion (S2) 4 Good Extension (L3) 4+ Good+ Left Flexion (S2) 4+ Good+ Extension (L3) 4+ Good+ Ankle/Foot Strength Ankle and Foot Manual Muscle Testing Right Dorsiflexion (L4) 5 Normal Plantarflexion (S1) 5 Normal Left Dorsiflexion (L4) 5 Normal Plantarflexion (S1) 5 Normal PT-OP-Q Treatments Start: 03/14/18 09:32 Freq: Status: Active Protocol: Document 05/27/18 16:01 [facility] (Rec: 05/27/18 16:20 [facility] [id number]) Therapeutic Exercises Sitting Exercises v sit Sitting Exercise Name V sit w/ft on ground Comments arm lifts then leg lifts Other Exercises 1 Other Exercise Name quadruped hip ext & arm flex Equipment Used lvl 1 Reps/Minutes 10 eac Comments no resistance then resistance Manual Therapy Treatment Soft Tissue Mobilization 2 Body Location R QL & ES Mobilization Type Rolling Intensity/Depth Moderate 1 Body Location R adductor Mobilization Type Rolling Sustained Pressure PT-OP-R Modalities Start: 03/14/18 09:32 Freq: Status: Active Protocol: Document 05/27/18 16:01 [facility] (Rec: 05/27/18 16:21 [facility] [id number]) Hot Pack/Cold Pack Treatment Cold Pack Location lumbar Patient Position Hooklying Treatment Duration (minutes) 10 PT-OP-T Assessment and Plan Start: 03/14/18 09:32 Freq: Status: Active Protocol: Document 05/27/18 16:01 [facility] (Rec: 05/27/18 16:20 [facility] [id number]) Physical Therapy Assessment Goals core Impairment core Short Term Goal (STG) improved core stability as demonatrated by 5/5 VCT, EFT, & LPM. STG Duration 05/21/18 Podopediatrician Goal (LTG) gait pattern to normal pelvic motions without pain LTG Duration 06/21/18 2 Impairment dec strength Short Term Goal (STG) Pt will be independent with HEP in order to improve strength. STG Duration 04/13/18-achieved progressing as tolerated Mcc Goal (LTG) Pt will have 4/5 LE strength bilaterally in order to participate in physical activity. LTG Duration 06/14/18-significantly improved Assessment Summary Assessment Pt had improved hip and pelvis range with manual therapy. Good progression is being made with abdominal exercises. Physical Therapy Plan Frequency and Duration Frequency of Treatment 2x/Week Duration of Treatment 2 months Plan of Care Start Date 04/20/18 Plan of Care End Date 06/21/18 Next Visit Focus/Plan Next Note Type Treatment Note Next Visit Plan Advance core as tolerated
--- NOTE | 2018-06-01 11:23 | PT.OTN ---
Current Diagnoses Other specified joint disorders, left hip (06/01/18) Crushing injury of abdomen, lower back, and pelvis, subsequent encounter (06/01/18) Physical Therapy Treatment Note PT-OP-A Visit Information Start: 03/14/18 09:32 Freq: Status: Active Protocol: Document 06/01/18 10:32 [facility] (Rec: 06/01/18 11:22 [facility] [id number]) Out-Patient Physical Therapy Visit Information Visit Information Visit Type Treatment Note Visit Start Time 10:30 Visit Stop Time 11:20 Total Visit Minutes 50 Visit Number 12/23 PT-OP-C Subjective Start: 03/14/18 09:32 Freq: Status: Active Protocol: Document 06/01/18 10:32 [facility] (Rec: 06/01/18 11:22 [facility] [id number]) OP-PT Subjective Patient Comments Patient Comments Pt reports Wednesday, she was going down the steps carrying garbage in her L hand with R hand on the rail and stepped too close to the front of the step with R heel and it slipped down the step, causing her to fall forward and hit her R knee and yanked on her R shoulder. PT-OP-J Posture/Palpation/Skin Start: 03/14/18 09:32 Freq: Status: Active Protocol: Document 04/20/18 16:46 [facility] (Rec: 04/20/18 17:35 [facility] [id number]) Posture Evaluation Ruslan Postural Classification System Ruslan Postural Classifications Vertical/Posterior Vertebral Compression Test 0 Elbow Flexion Test 3 Lumbar Protective Mechanism Left AP 3 Lumbar Protective Mechanism Right AP 2 Lumbar Protective Mechanism Left PA 2 Lumbar Protective Mechanism Right PA 2 PT-OP-M Strength Start: 03/14/18 09:32 Freq: Status: Active Protocol: Document 04/20/18 16:46 [facility] (Rec: 04/20/18 17:35 [facility] [id number]) Hip Strength Hip Manual Muscle Testing Right Flexion (L2) 5 Normal Extension (S1) 4- Good- Abduction 4+ Good+ External Rotation 4+ Good+ Internal Rotation 4 Good Left Flexion (L2) 5 Normal Extension (S1) 4 Good Abduction 4 Good External Rotation 4- Good- Internal Rotation 4 Good Comments pain w/ER & abd Knee Strength Knee Manual Muscle Testing Right Flexion (S2) 4 Good Extension (L3) 4+ Good+ Left Flexion (S2) 4+ Good+ Extension (L3) 4+ Good+ Ankle/Foot Strength Ankle and Foot Manual Muscle Testing Right Dorsiflexion (L4) 5 Normal Plantarflexion (S1) 5 Normal Left Dorsiflexion (L4) 5 Normal Plantarflexion (S1) 5 Normal PT-OP-Q Treatments Start: 03/14/18 09:32 Freq: Status: Active Protocol: Document 06/01/18 10:32 [facility] (Rec: 06/01/18 11:22 [facility] [id number]) Manual Therapy Treatment Soft Tissue Mobilization iliacus Body Location iliacus R Mobilization Type Sustained Pressure gracilis Body Location gracilis R Mobilization Type Rolling 4 Body Location HS R Mobilization Type Rolling Comments FM w/ knee ext 1 Body Location R adductor Mobilization Type Rolling Sustained Pressure PT-OP-R Modalities Start: 03/14/18 09:32 Freq: Status: Active Protocol: Document 06/01/18 10:32 [facility] (Rec: 06/01/18 11:23 [facility] [id number]) Hot Pack/Cold Pack Treatment Cold Pack Location ant R hip Patient Position Hooklying Treatment Duration (minutes) 10 PT-OP-T Assessment and Plan Start: 03/14/18 09:32 Freq: Status: Active Protocol: Document 06/01/18 10:32 [facility] (Rec: 06/01/18 11:22 [facility] [id number]) Physical Therapy Assessment Assessment Summary Assessment Pt had improved mobility of R LE after manual treatment. Treatment was very gentle today d/t recentl fall. Physical Therapy Plan Frequency and Duration Frequency of Treatment 2x/Week Duration of Treatment 2 months Plan of Care Start Date 04/20/18 Plan of Care End Date 06/21/18 Next Visit Focus/Plan Next Note Type Treatment Note Next Visit Plan resisted step ups
--- NOTE | 2018-06-10 10:29 | PT.OTN ---
Current Diagnoses Other specified joint disorders, left hip (06/10/18) Crushing injury of abdomen, lower back, and pelvis, subsequent encounter (06/10/18) Physical Therapy Treatment Note PT-OP-A Visit Information Start: 03/14/18 09:32 Freq: Status: Active Protocol: Document 06/10/18 09:48 [facility] (Rec: 06/10/18 10:29 [facility] [id number]) Out-Patient Physical Therapy Visit Information Visit Information Visit Type Treatment Note Visit Start Time 09:45 Visit Stop Time 10:35 Total Visit Minutes 50 Visit Number 01/23 PT-OP-C Subjective Start: 03/14/18 09:32 Freq: Status: Active Protocol: Document 06/10/18 09:48 [facility] (Rec: 06/10/18 10:29 [facility] [id number]) OP-PT Subjective Patient Comments Patient Comments Pt reports she saw her chiropractor and he manipulated her lower leg and that helped a lot. She has been using bosu. PT-OP-J Posture/Palpation/Skin Start: 03/14/18 09:32 Freq: Status: Active Protocol: Document 04/20/18 16:46 [facility] (Rec: 04/20/18 17:35 [facility] [id number]) Posture Evaluation Ruslan Postural Classification System Ruslan Postural Classifications Vertical/Posterior Vertebral Compression Test 0 Elbow Flexion Test 3 Lumbar Protective Mechanism Left AP 3 Lumbar Protective Mechanism Right AP 2 Lumbar Protective Mechanism Left PA 2 Lumbar Protective Mechanism Right PA 2 PT-OP-M Strength Start: 03/14/18 09:32 Freq: Status: Active Protocol: Document 04/20/18 16:46 [facility] (Rec: 04/20/18 17:35 [facility] [id number]) Hip Strength Hip Manual Muscle Testing Right Flexion (L2) 5 Normal Extension (S1) 4- Good- Abduction 4+ Good+ External Rotation 4+ Good+ Internal Rotation 4 Good Left Flexion (L2) 5 Normal Extension (S1) 4 Good Abduction 4 Good External Rotation 4- Good- Internal Rotation 4 Good Comments pain w/ER & abd Knee Strength Knee Manual Muscle Testing Right Flexion (S2) 4 Good Extension (L3) 4+ Good+ Left Flexion (S2) 4+ Good+ Extension (L3) 4+ Good+ Ankle/Foot Strength Ankle and Foot Manual Muscle Testing Right Dorsiflexion (L4) 5 Normal Plantarflexion (S1) 5 Normal Left Dorsiflexion (L4) 5 Normal Plantarflexion (S1) 5 Normal PT-OP-Q Treatments Start: 03/14/18 09:32 Freq: Status: Active Protocol: Document 06/10/18 09:48 [facility] (Rec: 06/10/18 10:29 [facility] [id number]) Gym Equipment Shuttle Balance red clips Details fwd while tossing yellow ball Comments squat, lunge, WBOS, NBOS, staggered stance Gait Training Gait Activity running Description cues for push off Manual Therapy Treatment Soft Tissue Mobilization gracilis Body Location gracilis R Mobilization Type Rolling 4 Body Location HS R Mobilization Type Rolling Comments FM w/ knee ext 3 Body Location R glutes Mobilization Type Rolling 1 Body Location R adductor Mobilization Type Rolling Sustained Pressure PT-OP-R Modalities Start: 03/14/18 09:32 Freq: Status: Active Protocol: Document 06/10/18 09:48 [facility] (Rec: 06/10/18 10:29 [facility] [id number]) Hot Pack/Cold Pack Treatment Cold Pack Location ant & post R hip Patient Position Hooklying Treatment Duration (minutes) 10 PT-OP-T Assessment and Plan Start: 03/14/18 09:32 Freq: Status: Active Protocol: Document 06/10/18 09:48 [facility] (Rec: 06/10/18 10:29 [facility] [id number]) Physical Therapy Assessment Goals core Impairment core Short Term Goal (STG) improved core stability as demonatrated by 5/5 VCT, EFT, & LPM. STG Duration 05/21/18 Entertainment Manager Goal (LTG) gait pattern to normal pelvic motions without pain LTG Duration 06/21/18 2 Impairment dec strength Short Term Goal (STG) Pt will be independent with HEP in order to improve strength. STG Duration 04/13/18-achieved progressing as tolerated Entertainment Manager Goal (LTG) Pt will have 4/5 LE strength bilaterally in order to participate in physical activity. LTG Duration 06/14/18-significantly improved Assessment Summary Assessment Pt did well with core engagement on balance board with improved ability to balance today. Tightness throughout R hip mm likely restricting her range Physical Therapy Plan Frequency and Duration Frequency of Treatment 2x/Week Duration of Treatment 2 months Plan of Care Start Date 04/20/18 Plan of Care End Date 06/21/18 Next Visit Focus/Plan Next Note Type Progress Note Next Visit Plan resisted step ups
--- NOTE | 2018-06-16 11:40 | PT.OTN ---
Current Diagnoses Other specified joint disorders, left hip (06/16/18) Crushing injury of abdomen, lower back, and pelvis, subsequent encounter (06/16/18) Physical Therapy Treatment Note PT-OP-A Visit Information Start: 03/14/18 09:32 Freq: Status: Active Protocol: Document 06/16/18 11:32 [facility] (Rec: 06/16/18 11:40 [facility] [id number]) Out-Patient Physical Therapy Visit Information Visit Information Visit Type Treatment Note Visit Start Time 10:35 Visit Stop Time 11:25 Total Visit Minutes 50 Visit Number 02/22 PT-OP-C Subjective Start: 03/14/18 09:32 Freq: Status: Active Protocol: Document 06/16/18 11:32 [facility] (Rec: 06/16/18 11:40 [facility] [id number]) OP-PT Subjective Patient Comments Patient Comments Pt reports she is a little sore in R SI region, likely d/ t the work she has been doing on her home. PT-OP-J Posture/Palpation/Skin Start: 03/14/18 09:32 Freq: Status: Active Protocol: Document 04/20/18 16:46 [facility] (Rec: 04/20/18 17:35 [facility] [id number]) Posture Evaluation Ruslan Postural Classification System Ruslan Postural Classifications Vertical/Posterior Vertebral Compression Test 0 Elbow Flexion Test 3 Lumbar Protective Mechanism Left AP 3 Lumbar Protective Mechanism Right AP 2 Lumbar Protective Mechanism Left PA 2 Lumbar Protective Mechanism Right PA 2 PT-OP-M Strength Start: 03/14/18 09:32 Freq: Status: Active Protocol: Document 04/20/18 16:46 [facility] (Rec: 04/20/18 17:35 [facility] [id number]) Hip Strength Hip Manual Muscle Testing Right Flexion (L2) 5 Normal Extension (S1) 4- Good- Abduction 4+ Good+ External Rotation 4+ Good+ Internal Rotation 4 Good Left Flexion (L2) 5 Normal Extension (S1) 4 Good Abduction 4 Good External Rotation 4- Good- Internal Rotation 4 Good Comments pain w/ER & abd Knee Strength Knee Manual Muscle Testing Right Flexion (S2) 4 Good Extension (L3) 4+ Good+ Left Flexion (S2) 4+ Good+ Extension (L3) 4+ Good+ Ankle/Foot Strength Ankle and Foot Manual Muscle Testing Right Dorsiflexion (L4) 5 Normal Plantarflexion (S1) 5 Normal Left Dorsiflexion (L4) 5 Normal Plantarflexion (S1) 5 Normal PT-OP-Q Treatments Start: 03/14/18 09:32 Freq: Status: Active Protocol: Document 06/16/18 11:32 [facility] (Rec: 06/16/18 11:40 [facility] [id number]) Gym Equipment Sport Cord blue Exercise Details step up onto 8 in step Cord/Resistance blue Reps/Duration 10 ea Comments fwd, side, cross over, backwards B Manual Therapy Treatment Soft Tissue Mobilization 2 Body Location R QL & ES Mobilization Type Rolling Intensity/Depth Moderate 1 Body Location R adductor Mobilization Type Rolling Sustained Pressure Joint Mobilizations 2 Joint innominate Direction R ER 1 Joint sacrum Direction PA FM PT-OP-R Modalities Start: 03/14/18 09:32 Freq: Status: Active Protocol: Document 06/16/18 11:32 [facility] (Rec: 06/16/18 11:40 [facility] [id number]) Hot Pack/Cold Pack Treatment Cold Pack Location ant & post R hip Patient Position Hooklying Treatment Duration (minutes) 10 PT-OP-T Assessment and Plan Start: 03/14/18 09:32 Freq: Status: Active Protocol: Document 06/16/18 11:32 [facility] (Rec: 06/16/18 11:40 [facility] [id number]) Physical Therapy Assessment Goals core Impairment core Short Term Goal (STG) improved core stability as demonatrated by 5/5 VCT, EFT, & LPM. STG Duration 05/21/18 Fuel Oil Clerk Goal (LTG) gait pattern to normal pelvic motions without pain LTG Duration 06/21/18 2 Impairment dec strength Short Term Goal (STG) Pt will be independent with HEP in order to improve strength. STG Duration 04/13/18-achieved progressing as tolerated Fci Goal (LTG) Pt will have 4/5 LE strength bilaterally in order to participate in physical activity. LTG Duration 06/14/18-significantly improved Assessment Summary Assessment Pt was challenged by resisted step up and had difficulty with balance expecially with motions to the L and resistance pulling R. She had a lat lean of torso with step ups and required cueing for neutral. Improved ant elevation after sacral & innominate mobs. Physical Therapy Plan Frequency and Duration Frequency of Treatment 2x/Week Duration of Treatment 2 months Plan of Care Start Date 04/20/18 Plan of Care End Date 06/21/18 Next Visit Focus/Plan Next Note Type Progress Note Next Visit Plan Cont to work on form & staiblity with step up
--- NOTE | 2018-06-22 09:53 | PT.OTN ---
Current Diagnoses Other specified joint disorders, left hip (06/16/18) Crushing injury of abdomen, lower back, and pelvis, subsequent encounter (06/16/18) Physical Therapy Treatment Note PT-OP-A Visit Information Start: 03/14/18 09:32 Freq: Status: Active Protocol: Document 06/22/18 09:41 [facility] (Rec: 06/22/18 09:52 [facility] [id number]) Out-Patient Physical Therapy Visit Information Visit Information Visit Type Treatment Note Visit Start Time 09:00 Visit Stop Time 09:48 Total Visit Minutes 48 Visit Number 03/25 PT-OP-C Subjective Start: 03/14/18 09:32 Freq: Status: Active Protocol: Document 06/22/18 09:41 [facility] (Rec: 06/22/18 09:52 [facility] [id number]) OP-PT Subjective Patient Comments Patient Comments Pt reports she has had to wear her SI belt d/t pain on her L side. She is better after seeing her chiro, but still sore. PT-OP-J Posture/Palpation/Skin Start: 03/14/18 09:32 Freq: Status: Active Protocol: Document 04/20/18 16:46 [facility] (Rec: 04/20/18 17:35 [facility] [id number]) Posture Evaluation Ruslan Postural Classification System Ruslan Postural Classifications Vertical/Posterior Vertebral Compression Test 0 Elbow Flexion Test 3 Lumbar Protective Mechanism Left AP 3 Lumbar Protective Mechanism Right AP 2 Lumbar Protective Mechanism Left PA 2 Lumbar Protective Mechanism Right PA 2 PT-OP-M Strength Start: 03/14/18 09:32 Freq: Status: Active Protocol: Document 04/20/18 16:46 [facility] (Rec: 04/20/18 17:35 [facility] [id number]) Hip Strength Hip Manual Muscle Testing Right Flexion (L2) 5 Normal Extension (S1) 4- Good- Abduction 4+ Good+ External Rotation 4+ Good+ Internal Rotation 4 Good Left Flexion (L2) 5 Normal Extension (S1) 4 Good Abduction 4 Good External Rotation 4- Good- Internal Rotation 4 Good Comments pain w/ER & abd Knee Strength Knee Manual Muscle Testing Right Flexion (S2) 4 Good Extension (L3) 4+ Good+ Left Flexion (S2) 4+ Good+ Extension (L3) 4+ Good+ Ankle/Foot Strength Ankle and Foot Manual Muscle Testing Right Dorsiflexion (L4) 5 Normal Plantarflexion (S1) 5 Normal Left Dorsiflexion (L4) 5 Normal Plantarflexion (S1) 5 Normal PT-OP-Q Treatments Start: 03/14/18 09:32 Freq: Status: Active Protocol: Document 06/22/18 09:41 [facility] (Rec: 06/22/18 09:52 [facility] [id number]) Manual Therapy Treatment Soft Tissue Mobilization 4 Body Location L iliacus Mobilization Type Sustained Pressure 3 Body Location L glutes Mobilization Type Rolling 2 Body Location B QL & ES Mobilization Type Rolling Intensity/Depth Moderate Joint Mobilizations 3 Joint hip Direction on axis B ER & IR L 2 Joint innominate Direction L caudal FM PT-OP-R Modalities Start: 03/14/18 09:32 Freq: Status: Active Protocol: Document 06/22/18 09:41 [facility] (Rec: 06/22/18 09:52 [facility] [id number]) Hot Pack/Cold Pack Treatment Cold Pack Location lumbar Patient Position Hooklying Treatment Duration (minutes) 10 PT-OP-T Assessment and Plan Start: 03/14/18 09:32 Freq: Status: Active Protocol: Document 06/22/18 09:41 [facility] (Rec: 06/22/18 09:52 [facility] [id number]) Physical Therapy Assessment Goals core Impairment core Short Term Goal (STG) improved core stability as demonatrated by 5/5 VCT, EFT, & LPM. STG Duration 07/19/18-improving Drying Machine Back Tender Goal (LTG) gait pattern to normal pelvic motions without pain LTG Duration 08/19/18-improved excect for today 2 Impairment dec strength Short Term Goal (STG) Pt will be independent with HEP in order to improve strength. STG Duration 04/13/18-achieved progressing as tolerated Custodial Goal (LTG) Pt will have 4/5 LE strength bilaterally in order to participate in physical activity. LTG Duration 06/14/18-significantly improved Assessment Summary Assessment Pt has been able to progress with core exercises untilt his week where she has had inc pain and was limited in activity, so treatment focused manually to improve mechanics . Physical Therapy Plan Frequency and Duration Frequency of Treatment 2x/Week Duration of Treatment 2 months Plan of Care Start Date 06/22/18 Plan of Care End Date 08/20/18 Therapeutic Interventions Therapeutic Interventions Aquatic Therapy Balance Training Gait Training Home Exercise Program Joint Mobilizations Manual Therapy Neuromuscular Re-education Soft Tissue Mobilization Taping Therapeutic Activities Therapeutic Exercises Modalities Cold Pack/Ice Massage Electric Stimulation Hot Packs Traction- Mechanical Ultrasound
--- NOTE | 2018-06-22 09:53 | PT.OPPOC ---
Current Diagnoses Other specified joint disorders, left hip (06/16/18) Crushing injury of abdomen, lower back, and pelvis, subsequent encounter (06/16/18) Provider Visit Care Team Role Provider Type Mei Sun PA-C Attending Provider Advanced Belt Glass Sander Family Provider Primary Care Provider Specialty: Internal Medicine Address: [address] [place] [address], [id number] Email: Plan Of Care PT-OP-T Assessment and Plan Start: 03/14/18 09:32 Freq: Status: Active Protocol: Document 06/22/18 09:41 [facility] (Rec: 06/22/18 09:52 [facility] [id number]) Physical Therapy Assessment Goals core Impairment core Short Term Goal (STG) improved core stability as demonatrated by 5/5 VCT, EFT, & LPM. STG Duration 07/19/18-improving Mcc Goal (LTG) gait pattern to normal pelvic motions without pain LTG Duration 08/19/18-improved excect for today 2 Impairment dec strength Short Term Goal (STG) Pt will be independent with HEP in order to improve strength. STG Duration 04/13/18-achieved progressing as tolerated Mcc Goal (LTG) Pt will have 4/5 LE strength bilaterally in order to participate in physical activity. LTG Duration 06/14/18-significantly improved Assessment Summary Assessment Pt has been able to progress with core exercises untilt his week where she has had inc pain and was limited in activity, so treatment focused manually to improve mechanics . Physical Therapy Plan Frequency and Duration Frequency of Treatment 2x/Week Duration of Treatment 2 months Plan of Care Start Date 06/22/18 Plan of Care End Date 08/20/18 Therapeutic Interventions Therapeutic Interventions Aquatic Therapy Balance Training Gait Training Home Exercise Program Joint Mobilizations Manual Therapy Neuromuscular Re-education Soft Tissue Mobilization Taping Therapeutic Activities Therapeutic Exercises Modalities Cold Pack/Ice Massage Electric Stimulation Hot Packs Traction- Mechanical Ultrasound Plan of Care Dates Plan of Care Start Date 06/22/18 Plan of Care End Date 08/20/18 Please Sign and Return: I have reviewed this Plan of Care and certify that the skilled therapy services above are required to meet the patient?s needs. Physician Signature Date Printed Name and Credentials Clinical Instructor Signature Printed Name and Credentials
--- NOTE | 2018-06-30 11:50 | PT.OTN ---
Current Diagnoses Other specified joint disorders, left hip (06/30/18) Crushing injury of abdomen, lower back, and pelvis, subsequent encounter (06/30/18) Physical Therapy Treatment Note PT-OP-A Visit Information Start: 03/14/18 09:32 Freq: Status: Active Protocol: Document 06/30/18 11:39 [facility] (Rec: 06/30/18 11:49 [facility] [id number]) Out-Patient Physical Therapy Visit Information Visit Information Visit Type Treatment Note Visit Start Time 10:30 Visit Stop Time 11:30 Total Visit Minutes 60 Visit Number 04/24 PT-OP-C Subjective Start: 03/14/18 09:32 Freq: Status: Active Protocol: Document 06/30/18 11:39 [facility] (Rec: 06/30/18 11:50 [facility] [id number]) OP-PT Subjective Patient Comments Patient Comments Pt reports she is is feeling sore and this past week has had pain shooting down into BLEs to knees and switches sides. She is unsure why. PT-OP-J Posture/Palpation/Skin Start: 03/14/18 09:32 Freq: Status: Active Protocol: Document 04/20/18 16:46 [facility] (Rec: 04/20/18 17:35 [facility] [id number]) Posture Evaluation Ruslan Postural Classification System Ruslan Postural Classifications Vertical/Posterior Vertebral Compression Test 0 Elbow Flexion Test 3 Lumbar Protective Mechanism Left AP 3 Lumbar Protective Mechanism Right AP 2 Lumbar Protective Mechanism Left PA 2 Lumbar Protective Mechanism Right PA 2 PT-OP-M Strength Start: 03/14/18 09:32 Freq: Status: Active Protocol: Document 04/20/18 16:46 [facility] (Rec: 04/20/18 17:35 [facility] [id number]) Hip Strength Hip Manual Muscle Testing Right Flexion (L2) 5 Normal Extension (S1) 4- Good- Abduction 4+ Good+ External Rotation 4+ Good+ Internal Rotation 4 Good Left Flexion (L2) 5 Normal Extension (S1) 4 Good Abduction 4 Good External Rotation 4- Good- Internal Rotation 4 Good Comments pain w/ER & abd Knee Strength Knee Manual Muscle Testing Right Flexion (S2) 4 Good Extension (L3) 4+ Good+ Left Flexion (S2) 4+ Good+ Extension (L3) 4+ Good+ Ankle/Foot Strength Ankle and Foot Manual Muscle Testing Right Dorsiflexion (L4) 5 Normal Plantarflexion (S1) 5 Normal Left Dorsiflexion (L4) 5 Normal Plantarflexion (S1) 5 Normal PT-OP-Q Treatments Start: 03/14/18 09:32 Freq: Status: Active Protocol: Document 06/30/18 11:39 [facility] (Rec: 06/30/18 11:49 [facility] [id number]) Manual Therapy Treatment Soft Tissue Mobilization iliacus Body Location iliacus R Mobilization Type Sustained Pressure Body Position Supine Comments & psoas in seated 2 Body Location R QL & ES Mobilization Type Rolling Intensity/Depth Moderate Joint Mobilizations 3 Joint hip Direction on axis B ER & IR R & R inf glide FM 2 Joint innominate Direction R caudal, B ER & IR & flex R FM 1 Joint sacrum Direction R UPA FM PT-OP-R Modalities Start: 03/14/18 09:32 Freq: Status: Active Protocol: Document 06/30/18 11:39 [facility] (Rec: 06/30/18 11:49 [facility] [id number]) Hot Pack/Cold Pack Treatment Cold Pack Location lumbar Patient Position Hooklying Treatment Duration (minutes) 10 PT-OP-T Assessment and Plan Start: 03/14/18 09:32 Freq: Status: Active Protocol: Document 06/30/18 11:39 [facility] (Rec: 06/30/18 11:49 [facility] [id number]) Physical Therapy Assessment Goals core Impairment core Short Term Goal (STG) improved core stability as demonatrated by 5/5 VCT, EFT, & LPM. STG Duration 07/19/18-improving Fpc Goal (LTG) gait pattern to normal pelvic motions without pain LTG Duration 08/19/18-improved excect for today 2 Impairment dec strength Short Term Goal (STG) Pt will be independent with HEP in order to improve strength. STG Duration 04/13/18-achieved progressing as tolerated Grain Distributor Goal (LTG) Pt will have 4/5 LE strength bilaterally in order to participate in physical activity. LTG Duration 06/14/18-significantly improved Assessment Summary Assessment Pt had significant R sided elevation and ant rotation w/ impaired gait upon arrival. With mobilizations, pt had significant improvement in gait mechanics & pain relief. Physical Therapy Plan Frequency and Duration Frequency of Treatment 2x/Week Duration of Treatment 2 months Plan of Care Start Date 06/22/18 Plan of Care End Date 08/20/18 Next Visit Focus/Plan Next Note Type Treatment Note Next Visit Plan Assess progress after prolo
--- NOTE | 2018-08-26 14:44 | PT.OPDS ---
Current Diagnoses Other specified joint disorders, left hip (06/30/18) Crushing injury of abdomen, lower back, and pelvis, subsequent encounter (06/30/18) Provider Visit Care Team Role Provider Type Mei Sun PA-C Attending Provider Advanced Manager Manufacturing Family Provider Primary Care Provider Specialty: Internal Medicine Address: [address] [place] [address], [phone] Email: Visit Number Visit Number 04/24 Discharge Summary PT-OP-C Subjective Start: 03/14/18 09:32 Freq: Status: Active Protocol: Document 06/30/18 11:39 [facility] (Rec: 06/30/18 11:50 [facility] [id number]) OP-PT Subjective Patient Comments Patient Comments Pt reports she is is feeling sore and this past week has had pain shooting down into BLEs to knees and switches sides. She is unsure why. PT-OP-J Posture/Palpation/Skin Start: 03/14/18 09:32 Freq: Status: Active Protocol: Document 04/20/18 16:46 [facility] (Rec: 04/20/18 17:35 [facility] [id number]) Posture Evaluation Ruslan Postural Classification System Ruslan Postural Classifications Vertical/Posterior Vertebral Compression Test 0 Elbow Flexion Test 3 Lumbar Protective Mechanism Left AP 3 Lumbar Protective Mechanism Right AP 2 Lumbar Protective Mechanism Left PA 2 Lumbar Protective Mechanism Right PA 2 PT-OP-M Strength Start: 03/14/18 09:32 Freq: Status: Active Protocol: Document 04/20/18 16:46 [facility] (Rec: 04/20/18 17:35 [facility] [id number]) Hip Strength Hip Manual Muscle Testing Right Flexion (L2) 5 Normal Extension (S1) 4- Good- Abduction 4+ Good+ External Rotation 4+ Good+ Internal Rotation 4 Good Left Flexion (L2) 5 Normal Extension (S1) 4 Good Abduction 4 Good External Rotation 4- Good- Internal Rotation 4 Good Comments pain w/ER & abd Knee Strength Knee Manual Muscle Testing Right Flexion (S2) 4 Good Extension (L3) 4+ Good+ Left Flexion (S2) 4+ Good+ Extension (L3) 4+ Good+ Ankle/Foot Strength Ankle and Foot Manual Muscle Testing Right Dorsiflexion (L4) 5 Normal Plantarflexion (S1) 5 Normal Left Dorsiflexion (L4) 5 Normal Plantarflexion (S1) 5 Normal PT-OP-T Assessment and Plan Start: 03/14/18 09:32 Freq: Status: Active Protocol: Document 08/26/18 14:43 [facility] (Rec: 08/26/18 14:44 [facility] [id number]) Physical Therapy Plan Discharge Physical Therapy Discharge Comments Pt is indep with HEP and received Prolo shot on SI joint. She is overall doing better per email and plan is a couple more shots w/her MD to try to stabilize the joint. D /C PT at this time and for pt to cont w/HEP.
== END 2018-11-03 11:27 | disposition home or self-care (01) ==
LOC: PHYS 10:30
PROVIDERS: Family Provider Physician Assistant; PCP Physician Assistant; Visit Provider Physician Assistant
DX: M25.852 Other specified joint disorders, left hip (principal); S38.1XXD Crushing injury of abdomen, lower back, and pelvis, subsequent encounter
CPT/HCPCS: 97010; 97110; 97112; 97116; 97140; 97162; 97530; 97535

== ENCOUNTER → 2018-12-14 16:12 | Outpatient (CLI) | payer OTHER, SELFPAY ==
--- NOTE | 2018-12-14 | DI.MG.S_ITS ---
BILATERAL DIGITAL SCREENING MAMMOGRAM 3D/2D WITH CAD: 12/14/2018 CLINICAL: Routine screening. Comparison is made to exams dated: 10/06/2016 mammogram, 09/13/2015 mammogram, 09/06/2014 mammogram, 07/20/2013 mammogram, and 07/19/2012 mammogram - [facility]. The tissue of both breasts is heterogeneously dense. This may lower the sensitivity of mammography. Current study was also evaluated with a Computer Aided Detection (CAD) system. There is an asymmetry in the left breast posterior depth superior region seen on the mediolateral oblique view only. There is possible architectural distortion associated with the asymmetry. No other significant masses, calcifications, or other findings are seen in either breast. IMPRESSION: INCOMPLETE: NEEDS ADDITIONAL IMAGING EVALUATION The asymmetry in the left breast is indeterminate. Additional views with possible ultrasound are recommended. This exam was interpreted at Station ID: [id number]. NOTE: For mammograms, a report in lay terms will be sent to the patient. Approximately 15% of breast malignancies will not be visualized mammographically. In the management of a palpable breast mass, a negative mammogram must not discourage biopsy of a clinically suspicious lesion. Electronically Signed By: Cam Enamorado M.D. ecl/:12/14/2018 21:27:45 letter sent: Additional Imaging Needed ACR BI-RADS Category 0: Incomplete 3340F
== END ==
PROVIDERS: PCP Physician Assistant; Visit Provider Physician Assistant
DX: Z12.31 Encounter for screening mammogram for malignant neoplasm of breast (principal)
CPT/HCPCS: 77063; 77067

== ENCOUNTER → 2019-01-06 08:14 | Outpatient (CLI) | payer OTHER, SELFPAY ==
--- NOTE | 2019-01-06 | DI.MG.S_ITS ---
UNILATERAL LEFT DIGITAL DIAGNOSTIC MAMMOGRAM 3D/2D WITH ADDITIONAL VIEWS: 01/06/2019 CLINICAL: Additional evaluation requested from prior study. Comparison is made to exams dated: 12/14/2018 mammogram, 11/18/2017 mammogram, and 10/06/2016 mammogram - [facility]. The tissue of left breast is heterogeneously dense. This may lower the sensitivity of mammography. Previously noted asymmetry in the left breast posterior depth superior region seen on the mediolateral oblique view only on comparison screening mammogram of 12/14/18 largely resolves wiith spot compression views, with only a small persistent 0.5 cm oval indistinct asymmetry located near the 12 o'clock position 3 cm from the nipple on additional views. IMPRESSION: INCOMPLETE: NEEDS ADDITIONAL IMAGING EVALUATION Previously noted asymmetry in the left breast posterior depth superior region seen on the mediolateral oblique view only on comparison screening mammogram of 12/14/18 largely resolves wiith spot compression views, with only a small persistent 0.5 cm oval indistinct asymmetry located near the 12 o'clock position 3 cm from the nipple on additional views. A targeted ultrasound is recommended and will be performed immediately following this exam. This exam was interpreted at Station ID: [id number]. NOTE: For mammograms, a report in lay terms will be sent to the patient. Approximately 15% of breast malignancies will not be visualized mammographically. In the management of a palpable breast mass, a negative mammogram must not discourage biopsy of a clinically suspicious lesion. Electronically Signed By: Cam Enamorado M.D. ecl/:01/06/2019 09:32:46 ACR BI-RADS Category 0: Incomplete 3340F
--- NOTE | 2019-01-06 | DI.US.S_ITS ---
LIMITED ULTRASOUND OF LEFT BREAST: 01/06/2019 CLINICAL: Patient returns today to evaluate a focal asymmetry in the left breast. Comparison is made to exams dated: 01/06/2019 mammogram, 12/14/2018 mammogram, 11/18/2017 mammogram, 10/06/2016 mammogram, and 09/13/2015 mammogram - [facility]. Color flow and real-time ultrasound of the left breast 11-2 o'clock region were performed. Calvert scale images of the real-time examination were reviewed. There is a 0.5 x 0.4 x 0.3 cm oval indistinct hypoechoic cyst with increased through transmission/posterior acoustic enhancement, low level internal echogenic foci consistent with debris, and no vascularity on Doppler ultrasound located in the left breast at 12 o'clock 3 cm from the nipple. This appears to correlate with the finding seen on mammography. IMPRESSION: PROBABLY BENIGN 0.5 x 0.4 x 0.3 cm probable complicated cyst llocated in the left breast at 12 o'clock 3 cm from the nipple, which appears to correlate with the finding seen on mammography. A follow-up mammogram and an ultrasound in 6 months is recommended to demonstrate stability. The patient is advised to monitor her breasts and to return sooner for re-evaluation should she feel anything grow or change. This exam was interpreted at Station ID: [id number]. Electronically Signed By: Cam Enamorado M.D. ecl/:01/06/2019 09:35:56 letter sent: Followup Recommended Ultrasound BI-RADS: 3 Probably benign
== END ==
PROVIDERS: PCP Physician Assistant; Visit Provider Physician Assistant
DX: R92.8 Other abnormal and inconclusive findings on diagnostic imaging of breast (principal); N60.01 Solitary cyst of right breast
CPT/HCPCS: 76642; 77065; G0279

== ENCOUNTER → 2019-02-06 17:48 | Outpatient (CLI) | payer OTHER, SELFPAY ==
--- NOTE | 2019-02-06 17:50 | DI.MRI.S_ITS ---
PROCEDURE: MR LUMBAR SPINE WO CON INDICATIONS: lower back pain. Left leg pain TECHNIQUE: Noncontrast sagittal T1 spin echo and T2 fast echo, sagittal STIR, axial T1 and T2 fast spin echo through the lumbar spine. In cases with scoliosis, additional coronal T2 fast spin echo may be performed. COMPARISON: [facility] [place], CR, XR LUMBAR SPINE WITH OBLIQUES, 06/15/2017, 8:24. [facility], MR, L-SPINE WITHOUT CONTRAST, 01/06/2017, 15:42. FINDINGS: Image quality: Limited by motion artifact. Alignment and Curvature: There is normal bony alignment. Bone Marrow: Marrow is of normal overall signal. No acute vertebral body compression fractures. Spinal Cord: Conus medullaris terminates at the L1-2 disc level. Visualized cord demonstrates normal signal and size. Paraspinous Soft Tissues: No paravertebral masses. L1-L2: Normal appearance. L2-L3: Normal appearance. L3-L4: Loss of disc signal. Minimal, diffuse disc bulge. No central stenosis. No neural foraminal narrowing. No neural compression. L4-L5: Loss of disc signal. Mild, diffuse disc bulge. Mild bilateral facet hypertrophy. Mild narrowing of the central canal. Moderate right and mild left neural foraminal narrowing. No neural compression. L5-S1: Loss of disc signal. Minimal, diffuse disc bulge. Mild bilateral facet hypertrophy. No central stenosis. No neural foraminal narrowing. No neural compression. Focal high intensity zone within the anterior annulus compatible with a fissure. Sacrum: Sacral marrow signal is normal. No sacral fracture. Sacroiliac joints are normal in appearance. The visualized lumbosacral plexus is normal. IMPRESSION: 1. Mild multilevel degenerative disease. 2. Mild multilevel facet arthropathy. 3. Mild L4-L5 central canal narrowing. 4. Moderate right and mild left L4-L5 neural foraminal narrowing. 5. No neural compression. 6. L5-S1 disc annulus fissure. Dictated by: Patricia Pagan MD, PhD on 02/07/2019 at 11:44 Approved by: Patricia Pagan MD, PhD on 02/07/2019 at 12:20
== END ==
PROVIDERS: PCP Physician Assistant; Visit Provider Physical Medicine & Rehabilitation
DX: M54.5 Low back pain (principal); M79.605 Pain in left leg; M51.36 Other intervertebral disc degeneration, lumbar region; M47.816 Spondylosis without myelopathy or radiculopathy, lumbar region; M47.817 Spondylosis without myelopathy or radiculopathy, lumbosacral region; M48.061 Spinal stenosis, lumbar region without neurogenic claudication
CPT/HCPCS: 72148

== ENCOUNTER → 2019-03-01 17:07 | Outpatient (CLI) | payer OTHER, SELFPAY ==
[2019-03-01 18:38] LABS: Appearance Urine UA CLEAR; Bilirubin Urine UA NEGATIVE (NEGATIVE); Color Urine UA YELLOW; Glucose Urine UA NEGATIVE (Negative); Ketones Urine UA NEGATIVE (NEGATIVE); Leukocyte Esterase Urine UA NEGATIVE (NEGATIVE); Nitrite Urine UA NEGATIVE (Negative); Occult Blood Urine UA 1+ (Negative); Protein Urine UA NEGATIVE (Negative); Urobilinogen Urine UA 0.2 E.U./dL (0.2)
[2019-03-01 18:40] LABS: pH Urine UA 5.5 (4.5-8.0)
[2019-03-01 18:55] LABS: Bacteria Urine Occasional (0-1); RBC Urine 0-1/HPF (0-5/HPF); Squamous Epithelial Cell Urine 0-1 /HPF (0-5/HPF); WBC Urine 0-1/HPF (0-5/HPF)
[2019-03-01 18:56] LABS: Culture Indicated Urine Cult Not Indicated
== END ==
PROVIDERS: PCP Physician Assistant; Visit Provider Physical Medicine & Rehabilitation
DX: M53.2X8 Spinal instabilities, sacral and sacrococcygeal region (principal)
CPT/HCPCS: 81001

== ENCOUNTER → 2019-04-25 09:14 | Outpatient (CLI) | payer OTHER, SELFPAY ==
[2019-04-25 11:24] LABS: Estradiol, Total 19.7 pg/mL
== END ==
PROVIDERS: PCP Physician Assistant
DX: Z78.0 Asymptomatic menopausal state (principal)
CPT/HCPCS: 36415; 82670; 83001

== ENCOUNTER → 2019-07-13 12:47 | Outpatient (CLI) | payer OTHER, SELFPAY ==
--- NOTE | 2019-07-13 | DI.MG.S_ITS ---
UNILATERAL LEFT DIGITAL DIAGNOSTIC MAMMOGRAM 3D/2D: 07/13/2019 CLINICAL: Patient returns for a 6 month follow up of the left breast. Comparison is made to exams dated: 01/06/2019 mammogram, 12/14/2018 mammogram, 11/18/2017 mammogram, 01/06/2019 ultrasound, 10/06/2016 mammogram, and 09/13/2015 mammogram - [facility]. The tissue of left breast is heterogeneously dense. This may lower the sensitivity of mammography. There is a stable 0.7 cm equal density asymmetry in the left breast posterior depth superior region seen on the mediolateral oblique view only. No other significant masses or calcifications are seen in the breast. IMPRESSION: INCOMPLETE: NEEDS ADDITIONAL IMAGING EVALUATION Stable 0.7 cm equal density asymmetry in the left breast is indeterminate. A targeted ultrasound is recommended and will immediately follow. This exam was interpreted at Station ID: [id number]. NOTE: For mammograms, a report in lay terms will be sent to the patient. Approximately 15% of breast malignancies will not be visualized mammographically. In the management of a palpable breast mass, a negative mammogram must not discourage biopsy of a clinically suspicious lesion. Electronically Signed By: Petar Sevilla M.D. slc/:07/13/2019 13:22:04 ACR BI-RADS Category 0: Incomplete 3340F
--- NOTE | 2019-07-13 | DI.US.S_ITS ---
LIMITED ULTRASOUND OF LEFT BREAST: 07/13/2019 CLINICAL: 6 month follow-up of cysts. Comparison is made to exams dated: 07/13/2019 mammogram, 01/06/2019 ultrasound, 01/06/2019 mammogram, 12/14/2018 mammogram, 11/18/2017 mammogram, and 10/06/2016 mammogram - [facility]. Color flow and real-time ultrasound of the left breast 12 o'clock region were performed. Calvert scale images of the real-time examination were reviewed. There is a 0.4 cm x 0.3 cm x 0.5 cm oval cyst in the left breast at 12 o'clock middle depth 3 cm from the nipple. This oval cyst is hypoechoic with a well-defined boundary and internal echoes. This abnormality is not significantly changed. Color flow imaging demonstrates that there is no vascularity present. This may correlate with the mammographic finding. There also is a new 0.4 cm x 0.3 cm x 0.4 cm oval cyst in the left breast at 12 o'clock middle depth 3 cm from the nipple. This oval cyst is hypoechoic with a well-defined boundary and internal echoes. Color flow imaging demonstrates that there is no vascularity present. IMPRESSION: PROBABLY BENIGN The 0.5 cm oval cyst in the left breast at 12 o'clock middle depth is consistent with a complicated cyst and is probably benign. The new 0.4 cm oval cyst in the left breast at 12 o'clock middle depth is consistent with a complicated cyst and is probably benign. Exam findings and recommendations were conveyed to the patient by the student education specialist. A follow-up mammogram and an ultrasound in 6 months is recommended to demonstrate stability. This exam was interpreted at Station ID: [id number]. Electronically Signed By: Petar Sevilla M.D. [facility]/:07/13/2019 15:20:28 letter sent: Followup Recommended Ultrasound BI-RADS: 3 Probably benign
== END ==
PROVIDERS: Referring Provider Physician Assistant; Visit Provider Physician Assistant
DX: R92.8 Other abnormal and inconclusive findings on diagnostic imaging of breast (principal); N60.02 Solitary cyst of left breast
CPT/HCPCS: 76642; 77065; G0279

== ENCOUNTER → 2020-01-03 08:32 | Outpatient (CLI) | payer OTHER, SELFPAY ==
--- NOTE | 2020-01-03 08:57 | DI.MG.S_ITS ---
Patient Name: IGNACIO NOEL date: 1965 Sex: F Attending Physician: INDIO Indications: Date: 01/03/2020 08:50 At the request of: MINGO BORJAS Procedure: MM diagnostic mammo BI BILATERAL DIGITAL DIAGNOSTIC MAMMOGRAM 3D/2D SHORT-TERM FOLLOW-UP: 01/03/2020 CLINICAL: Patient returns for a 12 month follow up of the left breast, due for bilateral exam. Comparison is made to exams dated: 07/13/2019 mammogram, 01/06/2019 mammogram, and 12/14/2018 mammogram - [facility]. The tissue of both breasts is heterogeneously dense. This may lower the sensitivity of mammography. Previously noted asymmetry in the left breast posterior depth superior region seen on the mediolateral oblique view only on comparison screening mammogram of 12/14/18 has the appearance of benign fibroglandular tissues on additional views. There is an equal density asymmetry in the left breast posterior depth superior region seen on the mediolateral oblique view only. This is significantly less prominent and decreased in size with imaging appearance similar to prior mammograms. No other significant masses, calcifications, or other findings are seen in either breast. IMPRESSION: INCOMPLETE: NEEDS ADDITIONAL IMAGING EVALUATION Previously noted asymmetry in the left breast is less prominent and decreased in size but remains indeterminate. An ultrasound is recommended for further evaluation and is scheduled to immediately follow this study. This exam was interpreted at Station ID: [id number]. NOTE: For mammograms, a report in lay terms will be sent to the patient. Approximately 15% of breast malignancies will not be visualized mammographically. In the management of a palpable breast mass, a negative mammogram must not discourage biopsy of a clinically suspicious lesion. Continued Report - Page 2 of 2 Patient Name: IGNACIO NOEL date: 1965 Sex: F Attending Physician: INDIO Indications: Date: 01/03/2020 08:50 At the request of: MINGO BORJAS Procedure: MM diagnostic mammo BI Electronically Signed By: Chi Sapp M.D. aty/:01/03/2020 10:49:37 ACR BI-RADS Category 0: Incomplete 3340F
--- NOTE | 2020-01-03 10:11 | DI.US.S_ITS ---
Patient Name: IGNACIO NOEL date: 1965 Sex: F Attending Physician: INDIO Indications: Date: 01/03/2020 10:20 At the request of: MINGO BORJAS Procedure: US breast LT limited ULTRASOUND OF LEFT BREAST: 01/03/2020 CLINICAL: 6 month follow-up of cysts. Comparison is made to exams dated: 01/03/2020 mammogram, 07/13/2019 mammogram, 07/13/2019 ultrasound, 01/06/2019 ultrasound, 01/06/2019 mammogram, and 12/14/2018 mammogram - [facility]. Color flow and real-time ultrasound of the left breast were performed. Calvert scale images of the real-time examination were reviewed. There is a 0.4 cm x 0.3 cm x 0.4 cm oval cyst in the left breast at 12 o'clock middle depth 3 cm from the nipple. This oval cyst is hypoechoic with a well-defined boundary and internal echoes. This abnormality is not significantly changed. Color flow imaging demonstrates that there is no vascularity present. The previously described 0.5 x 0.4 x 0.3 cm oval indistinct hypoechoic cyst located in the left breast at 12 o'clock 3 cm from the nipple has resolved. IMPRESSION: PROBABLY BENIGN The 0.4 cm x 0.3 cm x 0.4 cm oval cyst in the left breast is consistent with a complicated cyst and is probably benign. A follow-up mammogram and an ultrasound in 12 months is recommended. The findings and recommendations were conveyed to the patient during today's visit. This exam was interpreted at Station ID: [id number]. Electronically Signed By: Chi Sapp M.D. aty/:01/03/2020 10:43:51 letter sent: Followup Recommended Ultrasound BI-RADS: 3 Probably benign
== END ==
PROVIDERS: PCP Naturopath; Referring Provider Naturopath; Visit Provider Naturopath
DX: R92.8 Other abnormal and inconclusive findings on diagnostic imaging of breast (principal); N60.02 Solitary cyst of left breast
CPT/HCPCS: 76642; 77066; G0279

== ENCOUNTER → 2020-07-19 15:51 | Outpatient (CLI) | payer OTHER, SELFPAY ==
--- NOTE | 2020-07-19 15:55 | DI.RAD.S_ITS ---
PROCEDURE: XR CERVICAL SPINE 2V OR 3V INDICATIONS: spine pain TECHNIQUE: 2 view(s) of the cervical spine were acquired. COMPARISON: None. FINDINGS: Bones: No fracture. Mild levocurvature. Multilevel degenerative endplate sclerosis and spurring. Diffuse facet arthropathy. Grade 1 retrolisthesis of C5 on C6. Moderate narrowing of the C5-C6 disc space. Diffuse mild narrowing of the remaining cervical disc spaces. Straightening of the normal lordotic curvature. Soft tissues: No prevertebral soft tissue swelling. IMPRESSION: Diffuse cervical spondylosis most pronounced at C5-C6. Straightening of the normal lordotic curvature. Grade 1 retrolisthesis of C5 on C6 Dictated by: Gustavo Mendoza M.D. on 07/19/2020 at 16:58 Approved by: Gustavo Mendoza M.D. on 07/19/2020 at 16:59
--- NOTE | 2020-07-19 15:56 | DI.RAD.S_ITS ---
PROCEDURE: XR THORACIC SPINE 2V INDICATIONS: spine pain TECHNIQUE: 3 views of the thoracic spine were acquired. COMPARISON: None. FINDINGS: Bones: No fracture. Multilevel degenerative endplate sclerosis and spurring. Diffuse facet arthropathy. Mild dextrocurvature of the thoracolumbar junction and levocurvature of the lower thoracic spine. Soft tissues: No paravertebral stripe thickening. IMPRESSION: Mild lateral curvature of the spine as above the Diffuse spondylitic changes Dictated by: Gustaov Mendoza M.D. on 07/19/2020 at 17:13 Approved by: Gustavo Mendoza M.D. on 07/19/2020 at 17:14
--- NOTE | 2020-07-19 15:57 | DI.RAD.S_ITS ---
PROCEDURE: XR LUMBAR SPINE 2-3V INDICATIONS: spine pain TECHNIQUE: 3 views of the lumbar spine were acquired. COMPARISON: None. FINDINGS: Bones: No fracture. Multilevel degenerative endplate sclerosis and spurring. Diffuse facet arthropathy. Diffuse mild narrowing of the lumbar disc spaces. Partially visualized dextrocurvature of the thoracolumbar spine. Mild bilateral hip joint degeneration. Sacroiliac joints appear grossly unremarkable Soft tissues: Overlying bowel gas pattern is normal. No suspicious soft tissue calcifications. IMPRESSION: Diffuse mild lumbar spondylosis and facet arthropathy. Partially visualized dextrocurvature of the thoracolumbar spine. Mild bilateral hip joint degeneration Dictated by: Gustavo Mendoza M.D. on 07/19/2020 at 17:12 Approved by: Gustavo Mendoza M.D. on 07/19/2020 at 17:13
== END ==
PROVIDERS: PCP Naturopath; Referring Provider Chiropractor; Visit Provider Chiropractor
DX: M99.01 Segmental and somatic dysfunction of cervical region (principal); M99.02 Segmental and somatic dysfunction of thoracic region; M99.03 Segmental and somatic dysfunction of lumbar region; M99.04 Segmental and somatic dysfunction of sacral region; M99.05 Segmental and somatic dysfunction of pelvic region; M54.2 Cervicalgia; M54.6 Pain in thoracic spine; M54.5 Low back pain; M47.812 Spondylosis without myelopathy or radiculopathy, cervical region; M43.12 Spondylolisthesis, cervical region; M47.816 Spondylosis without myelopathy or radiculopathy, lumbar region; M47.814 Spondylosis without myelopathy or radiculopathy, thoracic region; M16.0 Bilateral primary osteoarthritis of hip; M41.85 Other forms of scoliosis, thoracolumbar region
CPT/HCPCS: 72040; 72070; 72100

== ENCOUNTER 2020-09-22 12:23 | Emergency (ER) | payer OTHER, SELFPAY ==
[2020-09-22 12:30] VITALS: BP 135/73; PULSE 71; RESP 16; TEMP 36.7; O2SAT 96
[2020-09-22 12:48] LABS: Add Manual Diff / Slide Review NO; Basophils Absolute Auto 100 /uL (0-100); Basophils Percent Auto 0.5 % (0-2); Eosinophils Absolute Auto 100 /uL (0-450); Eosinophils Percent Auto 0.7 % (2-4); Hematocrit 38.7 % (36-46); Lymphocytes Absolute Auto 2000 /uL (1100-4500); Lymphocytes Percent Auto 19.1 % (25-40); Mean Corpuscular HGB Conc 33.6 % (30-36); Mean Corpuscular Hemoglobin 29.9 PG (26-34); Monocytes Absolute Auto 700 /uL (0-900); Monocytes Percent Auto 6.8 % (3-14); Neutrophils Absolute Auto 7700 /uL (1500-7000); Neutrophils Percent Auto 72.9 % (50-75); Platelet Count 207 X10^3/uL (150-400); Red Blood Cell Count 4.35 X10^6/uL (4.0-5.2); Red Cell Distribution Width 13.6 % (11.6-14.8); White Blood Cell Count 10.6 X10^3/uL (4.5-11.0)
[2020-09-22 12:54] LABS: INR 1.1 (0.9-1.3); Prothrombin Time 11.9 SECONDS (10.1-12.7)
--- NOTE | 2020-09-22 12:56 | ED_ITS ---
HPI - Abdominal Pain General Chief Complaint: Abdominal Pain Stated Complaint: Lower Abd Pain Time Seen by Provider: 09/22/20 12:27 Source: patient Mode of arrival: Ambulatory Limitations: no limitations History of Present Illness HPI narrative: 55-year-old female nonsmoker with noncontributory medical history presents with a chief complaint of gradually worsening left lower quadrant pain over the past few days. It seems to be worse with motion and improves with rest. She denies any radiation or migration of her symptoms. It is achy and crampy in nature. Patient denies change in diet or history of the same. She denies dysuria, frequency, or urgency. MD complaint: abdominal pain Onset (ago): day(s) Pain Consistency: intermittent Location: LLQ Quality: cramping and aching Radiation: none Relieving factors: rest Exacerbating factors: movement Related Data Previous Rx's Medication Instructions Recorded estradiol 1 mg tablet 1 mg PO DAILY #90 tab 04/27/19 amoxicillin-pot clavulanate 1 tab PO BID #20 tab 09/22/20 [Augmentin] ketorolac 10 mg PO Q6H PRN #14 tab 09/22/20 ondansetron 4 mg PO TID-QID PRN #10 tab 09/22/20 Allergies Allergy/AdvReac Type Severity Reaction Status Date / Time morphine [MORPHINE] Allergy Unknown ITCHING Verified 09/22/20 12:32 Review of Systems Constitutional Constitutional: Denies chills, Denies fatigue, Denies fever(s), Denies frequent falls, Denies lethargy and Denies weakness Eyes Eyes: Denies change in vision, Denies eye discharge, Denies irritation and Denies loss of vision ENT Ears, Nose, Mouth, and Throat: Denies change in voice, Denies dizziness, Denies neck pain, Denies sore throat and Denies throat swelling Cardiovascular Cardiovascular: Denies chest pain, Denies irregular heart rhythm, Denies lightheadedness, Denies palpitations, Denies dyspnea, Denies dyspnea on exertion and Denies orthopnea Respiratory Respiratory: Denies cough, Denies dyspnea, Denies dyspnea on exertion and Denies wheezing Gastrointestinal Gastrointestinal: Denies abdominal pain, Denies change in bowel habits, Denies diarrhea, Denies nausea and Denies vomiting Musculoskeletal Musculoskeletal: Denies neck pain and Denies numbness Integumentary/Breasts Skin/Breast: Denies pruritus, Denies erythema, Denies rash and Denies wounds Neurologic Neurologic: Denies behavioral changes, Denies confusion, Denies dizziness, Denies frequent falls, Denies loss of vision, Denies numbness and Denies weakness Psychiatric Psychiatric: Denies anxiety, Denies behavioral changes, Denies confusion, Denies depression, Denies homicidal ideation and Denies suicidal ideation Endocrine Endocrine: Denies fatigue, Denies flushing and Denies palpitations Hematologic/Lymphatic Hematologic/Lymphatic: Denies easy bruising Allergic/Immunologic Allergic/Immunologic: Denies urticaria, Denies throat swelling and Denies wheezing Patient History Medical History (Updated 09/22/20 @ 14:26 by Ronal Leger DO) TAB (stress urinary incontinence, female) Surgical History S/P hysterectomy (~1997) Social History Smoking Status: Never smoker Smoking Status: Never smoker alcohol intake frequency: a few times a week Alcohol type: hard liquor Substance Use Type: does not use Exam Narrative Exam Narrative: GENERAL: [55] year old patient appears stated age. Well-no urished, well-developed patient, in mild distress. HEAD: Atraumatic. Normocephalic. EYES: Pupils equal round and reactive. Extraocular motions intact. No scleral icterus. No injection or drainage. ENT: Nose without bleeding, purulent drainage. Throat without erythema, tonsillar hypertrophy or exudate. Airway patent. NECK: Trachea midline. Non tender CARDIOVASCULAR: Regular rate and rhythm without murmurs, gallops, or rubs. RESPIRATORY: Clear to auscultation. Breath sounds equal bilaterally. No wheezes, rales, or rhonchi. GASTROINTESTINAL: Abdomen soft, tender in the left lower quadrant no rebound or peritoneal signs, nondistended. Bowel sounds present EXTREMITIES: No edema or joint tenderness. BACK: Nontender without deformity or crepitance. No flank tenderness. NEURO: AOx3. SKIN: No rash or erythema of visible areas Initial Vital Signs Initial Vital Signs: Vital Signs Temperature 98.1 F 09/22/20 12:30 Pulse Rate 71 09/22/20 12:30 Respiratory Rate 16 09/22/20 12:30 Blood Pressure 135/73 09/22/20 12:30 Pulse Oximetry 96 09/22/20 12:30 Course Orders Ordered: ED Orders 09/22/20 12:39 Complete Blood Count AUTO DIFF Stat Comprehensive Metabolic Panel Stat Lipase Stat Partial Thromboplastin Time Stat Prothrombin Time INR Stat 09/22/20 12:53 Urine Microscopic Stat 09/22/20 13:09 CT abdomen pelvis w con Stat Discontinued Medications Ketorolac Tromethamine (Ketorolac 30 Mg/Ml Vial) 15 mg IV NOW ONE Stop: 09/22/20 13:18 Last Admin: 09/22/20 13:22 Dose: 15 mg Documented by: BARRY Vital Signs Vital signs: Vital Signs - 8 hr 09/22/20 12:30 09/22/20 14:30 Temperature 98.1 F Pulse Rate 71 65 Respiratory Rate 16 16 Blood Pressure 135/73 121/79 Pulse Oximetry 96 96 MDM - Abdominal Pain Lab Data Result diagrams: 09/22/20 12:39 09/22/20 12:39 Labs: Lab Results 09/22/20 09/22/20 09/22/20 Range/Units 12:39 12:39 12:39 WBC 10.6 (4.5-11.0) X10^3/uL RBC 4.35 (4.0-5.2) X10^6/uL Hgb 13.0 (12.0-16.0) g/dL Hct 38.7 (36-46) % MCV 89.0 (80-100) fL MCH 29.9 (26-34) PG MCHC 33.6 (30-36) % RDW 13.6 (11.6-14.8) % Plt Count 207 (150-400) X10^3/uL Neut % (Auto) 72.9 (50-75) % Lymph % (Auto) 19.1 L (25-40) % [place] % (Auto) 6.8 (3-14) % Eos % (Auto) 0.7 L (2-4) % Baso % (Auto) 0.5 (0-2) % Neut # (Auto) 7700 H (9245-1724) /uL Lymph # (Auto) 2000 (4723-5083) /uL [place] # (Auto) 700 (0-900) /uL Eos # (Auto) 100 (0-450) /uL Baso # (Auto) 100 (0-100) /uL PT 11.9 (10.1-12.7) SECONDS INR 1.1 (0.9-1.3) APTT 34 (26.4-36.2) SECONDS Sodium 136 L (137-145) mmol/L Potassium 3.8 (3.4-5.1) mmol/L Chloride 104 (98-107) mmol/L Carbon Dioxide 25 (22-32) mmol/L BUN 10 (7-17) mg/dL Creatinine 0.54 (0.52-1.04) mg/dL Estimated GFR > 60.0 (>60) mL/min BUN/Creatinine Ratio 18.5 (6-22) Glucose 130 H (70-100) mg/dL Calcium 9.3 (8.4-10.2) mg/dL Total Bilirubin 0.2 (0.2-1.3) mg/dL AST 22 (14-36) IU/L ALT 21 (<35) IU/L Alkaline Phosphatase 44 (38-126) U/L Total Protein 7.0 (6.3-8.2) g/dL Albumin 4.2 (3.5-5.0) g/dL Globulin 2.8 (1.7-4.1) g/dL Albumin/Globulin Ratio 1.5 (1.0-2.8) Lipase 46 (23-300) U/L Urine RBC (0-5/HPF) Urine WBC (0-5/HPF) Urine Bacteria (None) Ur Culture Indicated? Micro UA Comment 09/22/20 Range/Units 12:53 WBC (4.5-11.0) X10^3/uL RBC (4.0-5.2) X10^6/uL Hgb (12.0-16.0) g/dL Hct (36-46) % MCV (80-100) fL MCH (26-34) PG MCHC (30-36) % RDW (11.6-14.8) % Plt Count (150-400) X10^3/uL Neut % (Auto) (50-75) % Lymph % (Auto) (25-40) % [place] % (Auto) (3-14) % Eos % (Auto) (2-4) % Baso % (Auto) (0-2) % Neut # (Auto) (5623-1265) /uL Lymph # (Auto) (8392-6797) /uL [place] # (Auto) (0-900) /uL Eos # (Auto) (0-450) /uL Baso # (Auto) (0-100) /uL PT (10.1-12.7) SECONDS INR (0.9-1.3) APTT (26.4-36.2) SECONDS Sodium (137-145) mmol/L Potassium (3.4-5.1) mmol/L Chloride (98-107) mmol/L Carbon Dioxide (22-32) mmol/L BUN (7-17) mg/dL Creatinine (0.52-1.04) mg/dL Estimated GFR (>60) mL/min BUN/Creatinine Ratio (6-22) Glucose (70-100) mg/dL Calcium (8.4-10.2) mg/dL Total Bilirubin (0.2-1.3) mg/dL AST (14-36) IU/L ALT (<35) IU/L Alkaline Phosphatase (38-126) U/L Total Protein (6.3-8.2) g/dL Albumin (3.5-5.0) g/dL Globulin (1.7-4.1) g/dL Albumin/Globulin Ratio (1.0-2.8) Lipase (23-300) U/L Urine RBC None seen (0-5/HPF) Urine WBC None seen (0-5/HPF) Urine Bacteria None seen (None) Ur Culture Indicated? Cult not indicated Micro UA Comment Microscopic normal Point of care testing: Urine Dip Bedside Urine Glucose Negative Bedside Urine Bilirubin - Negative Bedside Urine Ketone - Negative Urine Specific [place] 1.015 Bedside Urine Occult Blood +/- Bedside Urine pH 6.0 Bedside Urine Protein - Negative Bedside Urine Urobilinogen - Negative Bedside Urine Nitrite - Negative Bedside Urine Leukocytes - Negative Esterase Imaging Data CT scan - abdomen/pelvis: Radiologist's Impression: [address] [id number] Scan ReportSigned Patient: Neetu Wilson LMR#: [id number]: 1965Acct:[id number]/Sex: 55 / FDate of Service: 09/22/20Loc: EDAccession Number: [id number] Procedure: CT abdomen pelvis w con Ordering Provider: Ronal Leger D.O. PROCEDURE: CT ABDOMEN PELVIS W CON INDICATIONS: severe LLQ pain TECHNIQUE: After the administration of intravenous contrast, 5 mm thick sections acquired from the diaphragm to the symphysis. 5 mm coronal and sagittal reformats were acquired. For radiation dose reduction, the following was used: automated exposure control, adjustment of mA and/or kV according to patient size. COMPARISON: [facility], CT, ABDOMEN/PELVIS WITH CONTRAST, 12/30/2016, 14:36. FINDINGS: Image quality: Excellent. ABDOMEN: Lung bases: Lung bases are clear. Stable 3 millimeter nodule at the left lung base (3; 7) . Given stability this is characterized as benign. Heart size is normal. Solid organs: Stable enhancement of the left liver lobe measuring 1.9 centimeters. There is an additional hypodensity within the right hepatic lobe inferior aspect measuring 1.6 centimeters. Gallbladder is unremarkable. Biliary system is non dilated. Pancreas enhances normally. Spleen is normal in size and enhancement. No adren al nodules. Kidneys demonstrate normal size and enhancement, without hydronephrosis. Simple cysts noted within the interpolar region of the left kidney. Peritoneum and bowel: The stomach and proximal small bowel are unremarkable. The terminal ileum is normal. No evidence of appendicitis. There are a few scattered left colonic diverticula. Within the distal sigmoid colon there is an approximate 10 centimeter region of diffuse wall thickening with surrounding inflammation and small amount of adjacent fluid. There are a few adjacent diverticula there is however no significant diverticula noted centrally. Nodes and vessels: No retroperitoneal or mesenteric adenopathy by size criteri a. Aorta and inferior vena cava are normal in size. Miscellaneous: No ventral hernias. PELVIS: Genitourinary: Bladder wall thickness is normal. Uterus is surgically absent. Miscellaneous: No inguinal hernias or adenopathy. Bones: No suspicious bony lesions. No vertebral body compression fractures. IMPRESSION: Diffuse wall thickening with surrounding inflammation and a small amount of fluid of the distal sigmoid colon. This appearance favors a colitis. Although given adjacent diverticula, diverticulitis is not excluded. Left hepatic lobe 1.9 centimeter region of enhancement and a 1.6 centimeter right hepatic lobe hypodensity are nonspecific but may represent hemangiomas given appearance on prior exam. Consider confirmation with nonemergent dedicated CT versus MRI of the liver. Dictated by: Marquis Clay D.O. on 09/22/2020 at 13:00 Approved by: Marquis Clay D.O. on 09/22/2020 at 13:10 MDM Narrative Medical decision making narrative: Patient with gradually worsening left lower quadrant pain, imaging notes colitis versus diverticulitis in the absence of any perforation or abscess. She shows no sign of sepsis. Pain is well controlled, she is tolerating oral hydration. Return precautions given and questions answered to their apparent satisfaction. Discharge Plan Departure Patient Disposition: Home Clinical Impression: Colitis Instructions: DI for Colitis Activity Restrictions/Additional Instructions: *You have been diagnosed with [left lower quadrant pain due to an inflammatory or infectious cause likely colitis or diverticulitis] *What to do: *Please continue to take your regular medications as directed. [ x] New medication prescriptions sent to your pharmacy: [ [facility]] [ ] New medication written as a paper prescription [ ] No new medications given *Please follow up with your primary care provider in 2-3 days, call for an appointment. Let them know you were seen in the Emergency Department and that we ask that you be seen in follow up. We will electronically transmit a record of today's note if your PCP is in our system *If you do not have a primary care provider please contact the [facility] Resource line at [phone]. They will ask some questions about your medical history and help get you set up with a doctor in the community. *Return to Emergency Department if you should have any new, worsening or concerning symptoms, such as [fever greater than 101 F, shaking chills, worsening pain, persistent vomiting or other bothersome symptoms] Prescriptions: New ketorolac 10 mg tablet 10 mg PO Q6H PRN (Reason: pain) Qty: 14 RF: 0 ondansetron 4 mg tablet,disintegrating 4 mg PO TID-QID PRN (Reason: nausea and vomiting) Qty: 10 RF: 0 amoxicillin-pot clavulanate [Augmentin] 875-125 mg tablet 1 tab PO BID Qty: 20 RF: 0 No Action estradiol 1 mg tablet 1 mg PO DAILY Qty: 90 RF: 3 Referrals: Keisha Cortés ND [Primary Care Provider] - Stand Alone Forms: Work Release Note
[2020-09-22 12:57] LABS: PTT Partial Thromboplastin Tim 34 SECONDS (26.4-36.2)
[2020-09-22 12:58] LABS: Alanine Aminotransferase 21 IU/L (<35); Albumin 4.2 g/dL (3.5-5.0); Albumin Globulin Ratio 1.5 (1.0-2.8); Alkaline Phosphatase 44 U/L (38-126); Aspartate Aminotransferase 22 IU/L (14-36); BUN Creatinine Ratio 18.5 (6-22); Bilirubin Total 0.2 mg/dL (0.2-1.3); Blood Urea Nitrogen 10 mg/dL (7-17); Calcium 9.3 mg/dL (8.4-10.2); Carbon Dioxide 25 mmol/L (22-32); Chloride 104 mmol/L (98-107); Estimated Glomerular Filt Rate > 60.0 mL/min (>60); Globulin 2.8 g/dL (1.7-4.1); Glucose 130 mg/dL (70-100); HEMOLYSIS < 15 (0-50); Lipase 46 U/L (23-300); Potassium 3.8 mmol/L (3.4-5.1); Sodium 136 mmol/L (137-145)
[2020-09-22 13:08] LABS: Bacteria Urine None Seen; RBC Urine None Seen (0-5/HPF); WBC Urine None Seen (0-5/HPF)
--- NOTE | 2020-09-22 13:09 | DI.CT.S_ITS ---
PROCEDURE: CT ABDOMEN PELVIS W CON INDICATIONS: severe LLQ pain TECHNIQUE: After the administration of intravenous contrast, 5 mm thick sections acquired from the diaphragm to the symphysis. 5 mm coronal and sagittal reformats were acquired. For radiation dose reduction, the following was used: automated exposure control, adjustment of mA and/or kV according to patient size. COMPARISON: [facility], CT, ABDOMEN/PELVIS WITH CONTRAST, 12/30/2016, 14:36. FINDINGS: Image quality: Excellent. ABDOMEN: Lung bases: Lung bases are clear. Stable 3 millimeter nodule at the left lung base (3; 7) . Given stability this is characterized as benign. Heart size is normal. Solid organs: Stable enhancement of the left liver lobe measuring 1.9 centimeters. There is an additional hypodensity within the right hepatic lobe inferior aspect measuring 1.6 centimeters. Gallbladder is unremarkable. Biliary system is non dilated. Pancreas enhances normally. Spleen is normal in size and enhancement. No adrenal nodules. Kidneys demonstrate normal size and enhancement, without hydronephrosis. Simple cysts noted within the interpolar region of the left kidney. Peritoneum and bowel: The stomach and proximal small bowel are unremarkable. The terminal ileum is normal. No evidence of appendicitis. There are a few scattered left colonic diverticula. Within the distal sigmoid colon there is an approximate 10 centimeter region of diffuse wall thickening with surrounding inflammation and small amount of adjacent fluid. There are a few adjacent diverticula there is however no significant diverticula noted centrally. Nodes and vessels: No retroperitoneal or mesenteric adenopathy by size criteria. Aorta and inferior vena cava are normal in size. Miscellaneous: No ventral hernias. PELVIS: Genitourinary: Bladder wall thickness is normal. Uterus is surgically absent. Miscellaneous: No inguinal hernias or adenopathy. Bones: No suspicious bony lesions. No vertebral body compression fractures. IMPRESSION: Diffuse wall thickening with surrounding inflammation and a small amount of fluid of the distal sigmoid colon. This appearance favors a colitis. Although given adjacent diverticula, diverticulitis is not excluded. Left hepatic lobe 1.9 centimeter region of enhancement and a 1.6 centimeter right hepatic lobe hypodensity are nonspecific but may represent hemangiomas given appearance on prior exam. Consider confirmation with nonemergent dedicated CT versus MRI of the liver. Dictated by: Marquis Clay D.O. on 09/22/2020 at 13:00 Approved by: Marquis Clay D.O. on 09/22/2020 at 13:10
[2020-09-22 13:15] LABS: Culture Indicated Urine Cult Not Indicated; Urine Comments Microscopic Normal
[2020-09-22] MEDS: KETOROLAC 30 MG/ML VIAL 15 MG IV (13:22)
[2020-09-22 14:30] VITALS: BP 121/79; PULSE 65; RESP 16; O2SAT 96
== END 2020-09-22 14:43 | disposition home or self-care (01) ==
PROVIDERS: Emergency Provider Emergency Medicine; PCP Naturopath
DX: K52.9 Noninfective gastroenteritis and colitis, unspecified (principal)
CPT/HCPCS: 36415; 74177; 80053; 81003; 81015; 83690; 85025; 85610; 85730; 96374; 99283; 99284; J1885; Q9967

== ENCOUNTER → 2020-11-05 06:41 | Outpatient (CLI) | payer OTHER, SELFPAY ==
--- NOTE | 2020-11-05 | DI.MRI.S_ITS ---
PROCEDURE: MR ABDOMEN WO/W CON INDICATIONS: ABNORMAL IMAGING OF LIVER TECHNIQUE: Coronal HASTE, axial 2D FLASH in- and [id number]; axial breath-hold T2 FSE. Dynamic axial VIBE during the administration of contrast; post-contrast coronal VIBE or 2D FLASH with fat saturation from the hepatic dome to the iliac crests. Optional diffusion weighted imaging and ADC may be performed. COMPARISON: [facility], CT, CT ABDOMEN PELVIS W CON, 09/22/2020, 13:16. FINDINGS: Image quality: Excellent. Lung bases: No basal pleural effusions. Heart size is normal. Solid organs: Liver is normal in size and normal in overall enhancement. The 2 small indeterminate structures within the liver seen by CT scanning 09/22/20 are located within segment 3 open (left lateral hepatic segment inferiorly close) and segment 6 open (right posterior hepatic segment inferiorly close). These 2 structures have not changed in size, measuring 1.9 and 1.6 cm, respectively. The show imaging characteristics of benign hemangiomas. The segment 3 structure appears to represent a unilocular hemangioma and the segment 6 structure shows a more conventional discontinuous peripheral nodular centripetal enhancement pattern. Gallbladder normal. Biliary system is non dilated. Pancreas is normal in morphology. Spleen is normal in size and enhancement. No adrenal nodules. Both kidneys demonstrate normal size and enhancement, without hydronephrosis. A 2 cm simple cyst is seen at the posterior cortex of the left mid kidney. Nodes and vessels: No retroperitoneal or mesenteric adenopathy by size criteria. Aorta and inferior vena cava are normal in size. Bowel and peritoneum: Unenhanced bowel loops are normal in caliber. No free fluid. Bones and soft tissues: No ventral hernias. Bone marrow is normal in overall signal. IMPRESSION: 2 small benign appearing hemangiomas are present within the liver parenchyma corresponding to the areas of CT abnormality noted 09/22/20. These reside within segment 3 of the left lateral hepatic segment and segment 6 of the right posterior hepatic segment. No follow-up recommended. Dictated by: Alvarez Rivers M.D. on 11/05/2020 at 13:43 Approved by: Alvarez Rivers M.D. on 11/05/2020 at 14:16
== END ==
PROVIDERS: PCP Naturopath; Referring Provider Internal Medicine Gastroenterology; Visit Provider Internal Medicine Gastroenterology
DX: R93.2 Abnormal findings on diagnostic imaging of liver and biliary tract (principal); D18.09 Hemangioma of other sites
CPT/HCPCS: 74183; A9579

== ENCOUNTER → 2021-01-17 08:01 | Outpatient (CLI) | payer OTHER, SELFPAY ==
--- NOTE | 2021-01-17 | DI.MG.S_ITS ---
BILATERAL DIGITAL SCREENING MAMMOGRAM 3D/2D WITH CAD: 01/17/2021 CLINICAL: Routine screening. Comparison is made to exams dated: 01/03/2020 mammogram, 12/14/2018 mammogram, 11/18/2017 mammogram, 01/03/2020 ultrasound, 07/13/2019 mammogram, and 01/06/2019 mammogram - [facility]. The tissue of both breasts is heterogeneously dense. This may lower the sensitivity of mammography. Current study was also evaluated with a Computer Aided Detection (CAD) system. There is an equal density asymmetry in the left breast posterior depth superior region seen on the mediolateral oblique view only. This is less prominent. No other significant masses, calcifications, or other findings are seen in either breast. IMPRESSION: INCOMPLETE: NEEDS ADDITIONAL IMAGING EVALUATION Previously noted asymmetry in the left breast continues to be less prominent but remains indeterminate. An ultrasound is recommended for follow up of the previously seen probably benign sonographic findings. This exam was interpreted at Station ID: [id number]. NOTE: For mammograms, a report in lay terms will be sent to the patient. Approximately 15% of breast malignancies will not be visualized mammographically. In the management of a palpable breast mass, a negative mammogram must not discourage biopsy of a clinically suspicious lesion. Electronically Signed By: Kieran Sun M.D. ar/:01/20/2021 11:31:42 letter sent: Need Ultrasound ACR BI-RADS Category 0: Incomplete [id number]
== END ==
PROVIDERS: PCP Naturopath; Referring Provider Naturopath; Visit Provider Naturopath
DX: Z12.31 Encounter for screening mammogram for malignant neoplasm of breast (principal)
CPT/HCPCS: 77063; 77067

== ENCOUNTER → 2021-02-21 09:18 | Outpatient (CLI) | payer OTHER, SELFPAY ==
--- NOTE | 2021-02-21 | DI.US.S_ITS ---
LIMITED ULTRASOUND OF LEFT BREAST: 02/21/2021 CLINICAL: Patient returns for a 12 month follow up of the left breast. Comparison is made to exams dated: 02/21/2021 mammogram, 01/17/2021 mammogram, 01/03/2020 ultrasound, 01/03/2020 mammogram, 07/13/2019 mammogram, and 07/13/2019 ultrasound - [facility]. Color flow and real-time ultrasound of the left breast 12-3 o'clock region were performed. Calvert scale images of the real-time examination were reviewed. The 0.3 cm x 0.2 cm x 0.2 cm oval cyst in the left breast at 12 o'clock middle depth 3 cm from the nipple has decreased in size. There are no suspicious features, and this has not grown in over two years. IMPRESSION: BENIGN There is no sonographic evidence of malignancy. The 0.3 cm cyst in the left breast is benign. Return to annual mammogram screening schedule is recommended. Findings and recommendations were conveyed to the patient at time of exam. This exam was interpreted at Station ID: [id number]. Electronically Signed By: Lyndsey gonzalez/:02/21/2021 12:05:32 letter sent: Normal Exam Ultrasound BI-RADS: 2 Benign
--- NOTE | 2021-02-21 | DI.MG.S_ITS ---
UNILATERAL LEFT DIGITAL DIAGNOSTIC MAMMOGRAM 3D/2D WITH ADDITIONAL VIEWS: 02/21/2021 CLINICAL: Additional evaluation requested from prior study. Comparison is made to exams dated: 01/17/2021 mammogram, 01/03/2020 mammogram, 01/03/2020 ultrasound, and 07/13/2019 mammogram - [facility]. The tissue of left breast is heterogeneously dense. This may lower the sensitivity of mammography. The equal density asymmetry in the left breast posterior depth superior region seen on the mediolateral oblique view only is no longer prominent, is not confirmed as a discrete structure in additional views, and remains stable for over two years. Benign calcifications are also noted in the left breast, stable. No other significant masses or calcifications are seen in the breast. IMPRESSION: INCOMPLETE: NEEDS ADDITIONAL IMAGING EVALUATION The equal density asymmetry in the left breast is unchanged, likely represents fibroglandular tissue or fibrocystic change and is benign. An ultrasound is recommended for follow up of the previously seen probably benign complicated cyst, probably an incidental finding but in a similar location. This was performed immediately following this exam. This exam was interpreted at Station ID: [id number]. NOTE: For mammograms, a report in lay terms will be sent to the patient. Approximately 15% of breast malignancies will not be visualized mammographically. In the management of a palpable breast mass, a negative mammogram must not discourage biopsy of a clinically suspicious lesion. Electronically Signed By: Lyndsey gonzalez/:02/21/2021 09:58:50 ACR BI-RADS Category 0: Incomplete [id number]
== END ==
PROVIDERS: PCP Naturopath; Referring Provider Naturopath; Visit Provider Naturopath
DX: R92.8 Other abnormal and inconclusive findings on diagnostic imaging of breast (principal); N60.02 Solitary cyst of left breast
CPT/HCPCS: 76642; 77065; G0279

== ENCOUNTER 2021-04-09 15:22 | Emergency (ER) | payer OTHER, SELFPAY ==
[2021-04-09 15:37] VITALS: BP 117/73; PULSE 73; RESP 16; TEMP 36.5; O2SAT 96; BMI 24.1
[2021-04-09 17:33] VITALS: BP 122/72; PULSE 66; RESP 16; O2SAT 97
[2021-04-09] MEDS: TET,DIPH,PERTUSS(ACELL),VAC/PF 0.5 ML SYRINGE IM (17:39)
--- NOTE | 2021-04-09 18:25 | ED.WOUNDLAC ---
HPI - Wound/Laceration General Chief Complaint: Wound/Laceration Stated Complaint: Left ring finger injury/Gautam Act 04/07/21 Time Seen by Provider: 04/09/21 18:02 Source: patient Mode of arrival: Ambulatory History of Present Illness HPI narrative: Patient is a 55-year-old female. A couple days ago she sustained a puncture wound to her left ring finger. This did happen while at work. States that was a piece of metal. Since that time she has had increasing pain and redness around the area. Stated that earlier today she was able to express a large amount of purulent material. She comes to the emergency department today for evaluation and also an update of her tetanus shot. Related Data Previous Rx's Medication Instructions Recorded estradiol 1 mg tablet 1 mg PO DAILY #90 tab 04/27/19 amoxicillin 875 mg-potassium 1 tab PO BID #20 tab 09/22/20 clavulanate 125 mg tablet (Augmentin) ketorolac 10 mg tablet 10 mg PO Q6H PRN #14 tab 09/22/20 ondansetron 4 mg disintegrating 4 mg PO TID-QID PRN #10 tab 09/22/20 tablet cephalexin 500 mg capsule 500 mg PO QID 7 Days #28 cap 04/09/21 Allergies Allergy/AdvReac Type Severity Reaction Status Date / Time morphine [MORPHINE] Allergy Unknown ITCHING Verified 04/09/21 15:40 Review of Systems Constitutional Constitutional: Denies fever(s) Musculoskeletal Comments: Pain to the tip of the left ring finger Integumentary/Breasts Comments: Redness and swelling to the tip of the left ring finger Hematologic/Lymphatic On Anticoagulants: No Patient History Medical History TAB (stress urinary incontinence, female) Surgical History S/P hysterectomy (~1997) Social History Smoking Status: Never smoker Smoking Status: Never smoker alcohol intake frequency: a few times a week Alcohol type: hard liquor Substance Use Type: does not use Exam Initial Vital Signs Initial Vital Signs: Vital Signs Temperature 97.7 F 04/09/21 15:37 Pulse Rate 73 04/09/21 15:37 Respiratory Rate 16 04/09/21 15:37 Blood Pressure 117/73 04/09/21 15:37 Pulse Oximetry 96 04/09/21 15:37 HENNC Head: normal to inspection and normocephalic Cardio Pulses: radial pulses present on the left Skin Other: Patient does have redness located dorsum mostly ulnar aspect of the tip of the left ring finger. It does not extend proximal to the PIP joint. There is some redness on the radial side of mostly it is on the medial side. Extrem Other: Patient able to flex and extend at the PIP joint. Does have discomfort at the D IP joint. Some tenderness over the pad of the finger but no abscess felt to be consistent with a felon. There does not appear to be a drainable abscess. Course Orders Ordered: Discontinued Medications Diphtheria/Tetanus/Acell Pertussis (Tet,Diph,Pertuss(Acell),Vac/Pf 0.5 Ml Syringe) 0.5 ml IM .ONCE ONE Stop: 04/09/21 15:42 Last Admin: 04/09/21 17:39 Dose: 0.5 ml Documented by: TAYLOR Vital Signs Vital signs: Vital Signs - 8 hr 04/09/21 15:37 04/09/21 17:33 Temperature 97.7 F Pulse Rate 73 66 Respiratory Rate 16 16 Blood Pressure 117/73 122/72 Pulse Oximetry 96 97 MDM - Wound/Laceration MDM Narrative Medical decision making narrative: Given the nature of the wound I do concerned about an infection. There is redness around the tip of the left ring finger. Exam not consistent with a Felon. Patient did describe draining a large amount of purulent material earlier today which most likely will be the most beneficial thing that could happen. Her tetanus was updated. We will start her on antibiotics. She was given care instructions and return precautions. She expressed understanding and agreement. Discharge Plan Departure Patient Disposition: Home Clinical Impression: Cellulitis of finger of left hand Instructions: DI for Cellulitis -- Adult Activity Restrictions/Additional Instructions: You can wash your hands like normal. I do recommend that you take Tylenol/ibuprofen for discomfort. Take the antibiotics as directed. Return to the emergency department for any new or worsening symptoms Prescriptions: New cephalexin 500 mg capsule 500 mg PO QID 7 Days Qty: 28 0RF No Action estradiol 1 mg tablet 1 mg PO DAILY Qty: 90 3RF ketorolac 10 mg tablet 10 mg PO Q6H PRN (Reason: pain) Qty: 14 0RF ondansetron 4 mg tablet,disintegrating 4 mg PO TID-QID PRN (Reason: nausea and vomiting) Qty: 10 0RF amoxicillin-pot clavulanate [Augmentin] 875-125 mg tablet 1 tab PO BID Qty: 20 0RF
== END 2021-04-09 18:43 | disposition home or self-care (01) ==
PROVIDERS: Emergency Provider Emergency Medicine
DX: L03.012 Cellulitis of left finger (principal); W26.8XXA Contact with other sharp object(s), not elsewhere classified, initial encounter; Y99.0 Civilian activity done for income or pay; Z23 Encounter for immunization
CPT/HCPCS: 99282; 99283; 90715

== ENCOUNTER → 2022-02-26 07:50 | Outpatient (CLI) | payer OTHER, SELFPAY ==
--- NOTE | 2022-02-26 | DI.MG.S_ITS ---
BILATERAL DIGITAL SCREENING MAMMOGRAM 3D/2D WITH CAD: 02/26/2022 CLINICAL: Routine screening. Comparison is made to exams dated: 01/17/2021 mammogram, 01/03/2020 mammogram, and 12/14/2018 mammogram - [facility]. Both breasts are heterogeneously dense, which may obscure small masses (category c / 51-75% glandular tissue). Current study was also evaluated with a Computer Aided Detection (CAD) system. There is a possible focal asymmetry in the right breast at 11 o'clock middle depth. There is architectural distortion associated with the focal asymmetry. No other significant masses, calcifications, or other findings are seen in either breast. There has been no significant interval change. IMPRESSION: INCOMPLETE: NEEDS ADDITIONAL IMAGING EVALUATION The possible focal asymmetry in the right breast is indeterminate. Additional views with possible ultrasound are recommended. Based on the Tyrer Cuzick model (a risk assessment model) the patient's lifetime risk is 5.3% and her 10 year risk is 1.6%. According to the ACR, ACS, and NCCN guidelines, an annual breast MRI exam along with mammogram is recommended if the patient's lifetime risk is 20% or greater. This exam was interpreted at Station ID: Unknown. NOTE: For mammograms, a report in lay terms will be sent to the patient. Approximately 15% of breast malignancies will not be visualized mammographically. In the management of a palpable breast mass, a negative mammogram must not discourage biopsy of a clinically suspicious lesion. Electronically Signed By: Camron Cassidy M.D., jr/ekaterina:02/26/2022 13:15:41 Entry: - 02/27/2022 16:13:11 letter sent: Additional Imaging Needed ACR BI-RADS Category 0: Incomplete 3340F
== END ==
PROVIDERS: PCP Naturopath; Referring Provider Naturopath; Visit Provider Naturopath
DX: Z12.31 Encounter for screening mammogram for malignant neoplasm of breast (principal)
CPT/HCPCS: 77063; 77067

== ENCOUNTER → 2022-04-23 11:55 | Outpatient (CLI) | payer OTHER, SELFPAY ==
--- NOTE | 2022-04-23 | DI.MG.S_ITS ---
UNILATERAL RIGHT DIGITAL DIAGNOSTIC MAMMOGRAM 3D/2D WITH ADDITIONAL VIEWS: 04/23/2022 CLINICAL: Patient returns today to evaluate an asymmetry in the right breast. Comparison is made to exams dated: 02/26/2022 mammogram, 01/17/2021 mammogram, 01/03/2020 mammogram, 12/14/2018 mammogram, and 11/18/2017 mammogram - [facility]. The right breast is heterogeneously dense, which may obscure small masses (category c / 51-75% glandular tissue). The possible focal asymmetry in the right breast at 11 o'clock middle depth is not reproduced and presumably represented superimposed breast tissue. No other significant masses or calcifications are seen in the breast. IMPRESSION: NEGATIVE There is no mammographic evidence of malignancy. Return to annual mammogram screening schedule is recommended. Based on the Tyrer Cuzick model (a risk assessment model) the patient's lifetime risk is 5.3% and her 10 year risk is 1.6%. According to the ACR, ACS, and NCCN guidelines, an annual breast MRI exam along with mammogram is recommended if the patient's lifetime risk is 20% or greater. This exam was interpreted at Station ID: [id number]. NOTE: For mammograms, a report in lay terms will be sent to the patient. Approximately 15% of breast malignancies will not be visualized mammographically. In the management of a palpable breast mass, a negative mammogram must not discourage biopsy of a clinically suspicious lesion. Electronically Signed By: Kieran mckenzie/ekaterina:04/23/2022 12:16:09 letter sent: Normal Exam ACR BI-RADS Category 1: Negative 3341F
== END ==
PROVIDERS: PCP Naturopath; Referring Provider Naturopath; Visit Provider Naturopath
DX: R92.8 Other abnormal and inconclusive findings on diagnostic imaging of breast (principal)
CPT/HCPCS: 77065; G0279

== ENCOUNTER → 2022-05-14 09:53 | Outpatient (CLI) | payer OTHER, SELFPAY ==
[2022-05-14 12:38] LABS: Alanine Aminotransferase 18 IU/L (<35); Albumin 4.3 g/dL (3.5-5.0); Albumin Globulin Ratio 1.5 (1.0-2.8); Alkaline Phosphatase 51 U/L (38-126); Aspartate Aminotransferase 21 IU/L (14-36); BUN Creatinine Ratio 17.5 (6-22); Bilirubin Total 0.3 mg/dL (0.2-1.3); Blood Urea Nitrogen 11 mg/dL (7-17); Calcium 9.1 mg/dL (8.4-10.2); Carbon Dioxide 29 mmol/L (22-32); Chloride 103 mmol/L (98-107); Cholesterol 187 mg/dL (140-199); Estimated Glomerular Filt Rate > 60 mL/min (>60); Globulin 2.9 g/dL (1.7-4.1); Glucose 94 mg/dL (70-100); HDL Cholesterol 50 mg/dL (40-60); HEMOLYSIS < 15 (0-50); LDL Cholesterol Calculated 122 mg/dL (<100); Potassium 3.7 mmol/L (3.4-5.1); Sodium 139 mmol/L (137-145); Total Protein 7.2 g/dL (6.3-8.2); Triglycerides 75 mg/dL (35-150)
== END ==
PROVIDERS: PCP Naturopath; Referring Provider Naturopath; Visit Provider Naturopath
DX: E78.5 Hyperlipidemia, unspecified (principal)
CPT/HCPCS: 36415; 80053; 80061

== ENCOUNTER 2022-12-26 12:06 | Emergency (ER) | payer OTHER, SELFPAY ==
[2022-12-26] VITALS (15 sets, daily range): BP systolic 104–145; BP diastolic 55–82; PULSE 55–80; RESP 14–25; TEMP 36.8; O2SAT 96–100; BMI 21.6
[2022-12-26 15:04] LABS: Add Manual Diff / Slide Review NO; Basophils Absolute Auto 0 /uL (0-100); Basophils Percent Auto 0.6 % (0-2); Eosinophils Absolute Auto 100 /uL (0-450); Eosinophils Percent Auto 1.2 % (2-4); Hemoglobin 13.3 g/dL (12.0-16.0); Lymphocytes Absolute Auto 2900 /uL (1100-4500); Lymphocytes Percent Auto 37.3 % (25-40); Mean Corpuscular Hemoglobin 30.1 PG (26-34); Mean Corpuscular Volume 88.6 fL (80-100); Monocytes Absolute Auto 500 /uL (0-900); Monocytes Percent Auto 6.1 % (3-14); Neutrophils Absolute Auto 4200 /uL (1500-7000); Neutrophils Percent Auto 54.8 % (50-75); Platelet Count 227 X10^3/uL (150-400); Red Cell Distribution Width 13.4 % (11.6-14.8); White Blood Cell Count 7.7 X10^3/uL (4.5-11.0)
[2022-12-26 15:31] LABS: Alanine Aminotransferase 23 IU/L (<35); Albumin 4.2 g/dL (3.5-5.0); Albumin Globulin Ratio 1.6 (1.0-2.8); Alkaline Phosphatase 61 U/L (38-126); Aspartate Aminotransferase 24 IU/L (14-36); BUN Creatinine Ratio 16.9 (6-22); Bilirubin Total 0.2 mg/dL (0.2-1.3); Blood Urea Nitrogen 13 mg/dL (7-17); Calcium 9.1 mg/dL (8.4-10.2); Carbon Dioxide 29 mmol/L (22-32); Chloride 105 mmol/L (98-107); Estimated Glomerular Filt Rate > 60 mL/min (>60); Globulin 2.6 g/dL (1.7-4.1); Glucose 95 mg/dL (70-100); HEMOLYSIS < 15 (0-50); Lipase 76 U/L (23-300); Potassium 3.8 mmol/L (3.4-5.1); Sodium 139 mmol/L (137-145); Total Protein 6.8 g/dL (6.3-8.2)
[2022-12-26] MEDS: ONDANSETRON 4 MG ODT PO (16:46)
--- NOTE | 2022-12-26 17:03 | ED.ABDPAIN ---
HPI - Abdominal Pain <Clover Maria PA-C - Last Filed: 12/27/22 13:33> General Chief Complaint: Abdominal Pain Stated Complaint: L/ ABD pain below Ribs Time Seen by Provider: 12/26/22 16:52 Source: patient Mode of arrival: Ambulatory History of Present Illness HPI narrative: Patient is a 57-year-old female with no significant past medical history who takes no medications who presents with left flank pain. She describes the pain as coming in waves, sharp and stabbing. She denies fever chills, abdominal pain, urinary symptoms. Denies vomiting but endorses 2 days of nausea and generalized stomach upset. No diarrhea or constipation. She is not taken any pain medicine, prefers not to take medications. She does not like to go to the hospital but was taking a walk with her friends this morning and was doubled over in pain. She denies any history of kidney stones. She had a hysterectomy in 1988, no other abdominal surgeries. Related Data Previous Rx's Medication Instructions Recorded estradiol 1 mg tablet 1 mg PO DAILY #90 tabs 04/27/19 amoxicillin 875 mg-potassium 1 tab PO BID #20 tabs 09/22/20 clavulanate 125 mg tablet (Augmentin) ketorolac 10 mg tablet 10 mg PO Q6H PRN pain #14 tabs 09/22/20 ondansetron 4 mg disintegrating 4 mg PO TID-QID PRN nausea and 09/22/20 tablet vomiting #10 tabs Allergies Allergy/AdvReac Type Severity Reaction Status Date / Time morphine [MORPHINE] Allergy Unknown ITCHING Verified 04/09/21 15:40 Review of Systems <Clover Maria PA-C - Last Filed: 12/27/22 13:33> Review of Systems ROS Unobtainable: All systems reviewed & are unremarkable except as noted in HPI and below Patient History <Clover Maria PA-C - Last Filed: 12/27/22 13:33> Medical History (Updated 12/26/22 @ 19:09 by Clover Maria PA-C) TAB (stress urinary incontinence, female) Surgical History S/P hysterectomy (~1997) Social History Smoking Status: Never smoker Smoking Status: Never smoker alcohol intake frequency: a few times a week Alcohol type: hard liquor Substance Use Type: does not use Exam <Clover Maria PA-C - Last Filed: 12/27/22 13:33> Narrative Exam Narrative: GENERAL: 57 year old patient appears stated age. Well-developed patient, in mild distress. NEURO: AOx3. HEAD: Atraumatic. Normocephalic. CARDIOVASCULAR: Regular rate and rhythm without murmurs, gallops, or rubs. RESPIRATORY: Clear to auscultation. Breath sounds equal bilaterally. No wheezes, rales, or rhonchi. GASTROINTESTINAL: Abdomen soft, mild tenderness over bilateral lower quadrant. EXTREMITIES: No edema or joint tenderness. BACK: Left flank wrapping to low back above the SI joint exquisitely tender to palpation, positive CVA tenderness. SKIN: No rash or erythema of visible areas Initial Vital Signs Initial Vital Signs: Vital Signs Temperature 98.3 F 12/26/22 12:14 Pulse Rate 80 12/26/22 12:14 Respiratory Rate 18 12/26/22 12:14 Blood Pressure 144/82 H 12/26/22 12:14 Pulse Oximetry 99 12/26/22 12:14 Oxygen Delivery Method Room Air 12/26/22 12:14 <Adali Ames DO - Last Filed: 12/27/22 17:26> Initial Vital Signs Initial Vital Signs: Vital Signs Temperature 98.3 F 12/26/22 12:14 Pulse Rate 80 12/26/22 12:14 Respiratory Rate 18 12/26/22 12:14 Blood Pressure 144/82 H 12/26/22 12:14 Pulse Oximetry 99 12/26/22 12:14 Oxygen Delivery Method Room Air 12/26/22 12:14 Course <Clover Maria PA-C - Last Filed: 12/27/22 13:33> Orders Ordered: Discontinued Medications Ibuprofen (Ibuprofen 400 Mg Tablet) 800 mg PO NOW ONE Stop: 12/26/22 19:10 Last Admin: 12/26/22 19:18 Dose: Not Given Documented By: JOSE L Ondansetron HCl (Ondansetron 4 Mg Odt) 4 mg PO NOW PRN PRN Reason: Nausea And Vomiting Last Admin: 12/26/22 16:46 Dose: 4 mg Documented By: RB Ondansetron HCl (Ondansetron 4 Mg/2 Ml Inj) 4 mg IV NOW PRN PRN Reason: Nausea And Vomiting Vital Signs Vital signs: Vital Signs - 8 hr 12/26/22 12:14 12/26/22 14:53 12/26/22 16:36 Temperature 98.3 F Pulse Rate 80 63 60 Respiratory Rate 18 16 20 Blood Pressure 144/82 H 136/80 Pulse Oximetry 99 98 96 Oxygen Delivery Method Room Air Room Air 12/26/22 16:38 12/26/22 16:38 Temperature Pulse Rate 58 L Respiratory Rate 14 Blood Pressure 145/60 H Pulse Oximetry 98 Oxygen Delivery Method <Adali Ames DO - Last Filed: 12/27/22 17:26> Orders Ordered: Discontinued Medications Ibuprofen (Ibuprofen 400 Mg Tablet) 800 mg PO NOW ONE Stop: 12/26/22 19:10 Last Admin: 12/26/22 19:18 Dose: Not Given Documented By: RB Ondansetron HCl (Ondansetron 4 Mg Odt) 4 mg PO NOW PRN PRN Reason: Nausea And Vomiting Last Admin: 12/26/22 16:46 Dose: 4 mg Documented By: RB Ondansetron HCl (Ondansetron 4 Mg/2 Ml Inj) 4 mg IV NOW PRN PRN Reason: Nausea And Vomiting Vital Signs Vital signs: Vital Signs - 8 hr 12/26/22 12:14 12/26/22 14:53 12/26/22 16:36 Temperature 98.3 F Pulse Rate 80 63 60 Respiratory Rate 18 16 20 Blood Pressure 144/82 H 136/80 Pulse Oximetry 99 98 96 Oxygen Delivery Method Room Air Room Air 12/26/22 16:38 12/26/22 16:38 Temperature Pulse Rate 58 L Respiratory Rate 14 Blood Pressure 145/60 H Pulse Oximetry 98 Oxygen Delivery Method MDM - Abdominal Pain <Clover Maria PA-C - Last Filed: 12/27/22 13:33> Lab Data 12/26/22 14:35 12/26/22 14:35 Labs: Lab Results 12/26/22 12/26/22 Range/Units 14:35 14:35 WBC 7.7 (4.5-11.0) X10^3/uL RBC 4.40 (4.0-5.2) X10^6/uL Hgb 13.3 (12.0-16.0) g/dL Hct 39.0 (36-46) % MCV 88.6 (80-100) fL MCH 30.1 (26-34) PG MCHC 34.0 (30-36) % RDW 13.4 (11.6-14.8) % Plt Count 227 (150-400) X10^3/uL Neut % (Auto) 54.8 (50-75) % Lymph % (Auto) 37.3 (25-40) % Glynn % (Auto) 6.1 (3-14) % Eos % (Auto) 1.2 L (2-4) % Baso % (Auto) 0.6 (0-2) % Neut # (Auto) 4200 (7562-0175) /uL Lymph # (Auto) 2900 (9064-3926) /uL Glynn # (Auto) 500 (0-900) /uL Eos # (Auto) 100 (0-450) /uL Baso # (Auto) 0 (0-100) /uL Sodium 139 (137-145) mmol/L Potassium 3.8 (3.4-5.1) mmol/L Chloride 105 (98-107) mmol/L Carbon Dioxide 29 (22-32) mmol/L BUN 13 (7-17) mg/dL Creatinine 0.77 (0.52-1.04) mg/dL Estimated GFR > 60 (>60) mL/min BUN/Creatinine Ratio 16.9 (6-22) Glucose 95 (70-100) mg/dL Calcium 9.1 (8.4-10.2) mg/dL Total Bilirubin 0.2 (0.2-1.3) mg/dL AST 24 (14-36) IU/L ALT 23 (<35) IU/L Alkaline Phosphatase 61 (38-126) U/L Total Protein 6.8 (6.3-8.2) g/dL Albumin 4.2 (3.5-5.0) g/dL Globulin 2.6 (1.7-4.1) g/dL Albumin/Globulin Ratio 1.6 (1.0-2.8) Lipase 76 (23-300) U/L Point of care testing: Urine Dip Bedside Urine Glucose Negative Bedside Urine Bilirubin - Negative Bedside Urine Ketone - Negative Urine Specific [place] 1.010 Bedside Urine Occult Blood - Negative Bedside Urine pH 8.5 Bedside Urine Protein - Negative Bedside Urine Urobilinogen - Negative Bedside Urine Nitrite - Negative Bedside Urine Leukocytes - Negative Esterase Imaging Data CT scan - abdomen/pelvis: Radiologist's Impression: Patient: Neetu Wilson MR#: [id number] : 1965 Acct:[id number] Age/Sex: 57 / F Date of Service: 12/26/22 Loc: ED Accession Number: [id number] ?? Procedure: CT abdomen pelvis w con Ordering Provider: Clover Maria P.A-C PROCEDURE:? CT ABDOMEN PELVIS W CON ? INDICATIONS:? left flank pain, LLQ pain ? TECHNIQUE:? After the administration of intravenous contrast, axial sections acquired from the lung bases to the pubic symphysis.? Coronal and sagittal reformats were performed.? For radiation dose reduction, the following was used:? automated exposure control, adjustment of mA and/or kV according to patient size.? ? COMPARISON:? [facility], CT, CT ABDOMEN PELVIS W CON, 09/22/2020, 13:16. ? FINDINGS: ? Lower thorax: The lung bases are clear.? Heart size normal.? No hiatal hernia. ? Liver:? 2 cm hyper enhancing nodule in the left hepatic lobe, in an additional hypodensity in the right hepatic lobe measuring 1.5 cm show peripheral puddling contrast, both stable from the prior ? Biliary system:? No calcified cholelithiasis or pericholecystic inflammation.? No intra or extrahepatic bile duct dilatation. ? Pancreas:? Unremarkable without mass or inflammation evident. ? Spleen:? Normal in size and density. ? Adrenals:? Normal morphology and density. ? Reproductive system:? Unremarkable as visualized. ? Urinary system:? Left renal 3.2 cm simple cyst.? Otherwise, both kidneys have appropriate enhancement without calculus or hydronephrosis. ? Gastrointestinal system:? Mild small bowel wall thickening and enhancement without dilation or evidence of obstruction.? No free air..? Multiple diverticula arise from the sigmoid colon without evidence of diverticulitis. ? ? Appendix:? No findings to suggest acute appendicitis. ? Peritoneal spaces:? No mesenteric or retroperitoneal adenopathy.? No free air.? No free fluid.? ? Vasculature:? The IVC, aorta and iliac vasculature are unremarkable. ? Abdominal wall:? Abdominal wall intact without evidence of ventral or inguinal hernias. ? Musculoskeletal:? Normal bone mineralization.? No acute fractures.? ? IMPRESSION: ? 1. Mild small bowel nonspecific wall thickening and enhancement without obstruction may reflect ileus or enteritis. ? 2. Sigmoid and left colon diverticulosis without evidence of diverticulitis ? ? Approved by: Isael Membreno M.D. on 12/26/2022 at 17:52? MDM Narrative Medical decision making narrative: Multiple etiologies for patient's symptoms considered including, but not limited to: Kidney stone, UTI, pyelonephritis, diverticulitis, muscle spasm. Labs without clinically significant abnormality, urine negative. Given degree of pain, CT abdomen pelvis obtained. CT shows mild nonspecific small bowel wall thickening without any obstruction, possibly enteritis, and diverticulosis without any evidence of diverticulitis. Also of note are stable liver nodules and a simple cyst of the left kidney. Given the unremarkable CT scan, pain maybe secondary to muscle spasm. Advised rest, hydration, light diet as tolerated. Return if develops fever, hematuria, vomiting, severe pain. Discussed pain control, patient will take [id number] Tylenol and ibuprofen, apply ice and/or heat as appropriate. Patient's symptoms improved over duration of stay with above-stated therapies. Findings and discharge diagnosis discussed with patient/family followed by verbalization of understanding Return precautions discussed with patient/family whom verbalize understanding of diagnosis and plan <Adali Ames, DO - Last Filed: 12/27/22 17:26> Lab Data Labs: Lab Results 12/26/22 12/26/22 Range/Units 14:35 14:35 WBC 7.7 (4.5-11.0) X10^3/uL RBC 4.40 (4.0-5.2) X10^6/uL Hgb 13.3 (12.0-16.0) g/dL Hct 39.0 (36-46) % MCV 88.6 (80-100) fL MCH 30.1 (26-34) PG MCHC 34.0 (30-36) % RDW 13.4 (11.6-14.8) % Plt Count 227 (150-400) X10^3/uL Neut % (Auto) 54.8 (50-75) % Lymph % (Auto) 37.3 (25-40) % Glynn % (Auto) 6.1 (3-14) % Eos % (Auto) 1.2 L (2-4) % Baso % (Auto) 0.6 (0-2) % Neut # (Auto) 4200 (2934-3810) /uL Lymph # (Auto) 2900 (6646-3775) /uL Glynn # (Auto) 500 (0-900) /uL Eos # (Auto) 100 (0-450) /uL Baso # (Auto) 0 (0-100) /uL Sodium 139 (137-145) mmol/L Potassium 3.8 (3.4-5.1) mmol/L Chloride 105 (98-107) mmol/L Carbon Dioxide 29 (22-32) mmol/L BUN 13 (7-17) mg/dL Creatinine 0.77 (0.52-1.04) mg/dL Estimated GFR > 60 (>60) mL/min BUN/Creatinine Ratio 16.9 (6-22) Glucose 95 (70-100) mg/dL Calcium 9.1 (8.4-10.2) mg/dL Total Bilirubin 0.2 (0.2-1.3) mg/dL AST 24 (14-36) IU/L ALT 23 (<35) IU/L Alkaline Phosphatase 61 (38-126) U/L Total Protein 6.8 (6.3-8.2) g/dL Albumin 4.2 (3.5-5.0) g/dL Globulin 2.6 (1.7-4.1) g/dL Albumin/Globulin Ratio 1.6 (1.0-2.8) Lipase 76 (23-300) U/L Point of care testing: Urine Dip Bedside Urine Glucose Negative Bedside Urine Bilirubin - Negative Bedside Urine Ketone - Negative Urine Specific [place] 1.010 Bedside Urine Occult Blood - Negative Bedside Urine pH 8.5 Bedside Urine Protein - Negative Bedside Urine Urobilinogen - Negative Bedside Urine Nitrite - Negative Bedside Urine Leukocytes - Negative Esterase ECG Data Interpretation: Joselitonick-sinus rhythm rate 52 NE interval 146 QRS [address] changes no priors to compare no ischemia Discharge Plan Departure Patient Disposition: Home Clinical Impression: Acute left flank pain Instructions: DI for Abdominal Pain-Adult Activity Restrictions/Additional Instructions: *You have been diagnosed with left flank pain, possibly colitis. There is no evidence of infection in your blood or your urine, and no infection or kidney stone seen on your CT scan. I would advise taking a ibuprofen for pain, continuing adequate hydration, eating a light diet as tolerated. If you develop a fever, worsening pain, can not keep fluids down, or other concerning symptoms, please return for reassessment. *What to do: *Please continue to take your regular medications as directed. [ ] New medication prescriptions sent to your pharmacy: [ ] [ ] New medication written as a paper prescription [x] No new medications given *Please follow up with your primary care provider in 2-3 days, call for an appointment. Let them know you were seen in the Emergency Department and that we ask that you be seen in follow up. We will electronically transmit a record of today's note if your PCP is in our system *If you do not have a primary care provider please contact the [facility] Resource line at [phone]. They will ask some questions about your medical history and help get you set up with a doctor in the community. *Return to Emergency Department if you should have any new, worsening or concerning symptoms, such as [fever greater than 101 F, shaking chills, worsening pain, persistent vomiting or other bothersome symptoms] Prescriptions: No Action estradiol 1 mg tablet 1 mg PO DAILY Qty: 90 3RF ketorolac 10 mg tablet 10 mg PO Q6H PRN (Reason: pain) Qty: 14 0RF ondansetron 4 mg tablet,disintegrating 4 mg PO TID-QID PRN (Reason: nausea and vomiting) Qty: 10 0RF amoxicillin-pot clavulanate [Augmentin] 875-125 mg tablet 1 tab PO BID Qty: 20 0RF Referrals: Scarlet Butterfield ND [Primary Care Provider] - Stand Alone Forms: Patient Portal/API <Adali Ames DO - Last Filed: 12/27/22 17:26> Cosign ED Attending Markusature Attestation: I was immediately available in the department for consultation. Documentation has been reviewed.
--- NOTE | 2022-12-26 17:11 | DI.CT.S_ITS ---
PROCEDURE: CT ABDOMEN PELVIS W CON INDICATIONS: left flank pain, LLQ pain TECHNIQUE: After the administration of intravenous contrast, axial sections acquired from the lung bases to the pubic symphysis. Coronal and sagittal reformats were performed. For radiation dose reduction, the following was used: automated exposure control, adjustment of mA and/or kV according to patient size. COMPARISON: [facility], CT, CT ABDOMEN PELVIS W CON, 09/22/2020, 13:16. FINDINGS: Lower thorax: The lung bases are clear. Heart size normal. No hiatal hernia. Liver: 2 cm hyper enhancing nodule in the left hepatic lobe, in an additional hypodensity in the right hepatic lobe measuring 1.5 cm show peripheral puddling contrast, both stable from the prior Biliary system: No calcified cholelithiasis or pericholecystic inflammation. No intra or extrahepatic bile duct dilatation. Pancreas: Unremarkable without mass or inflammation evident. Spleen: Normal in size and density. Adrenals: Normal morphology and density. Reproductive system: Unremarkable as visualized. Urinary system: Left renal 3.2 cm simple cyst. Otherwise, both kidneys have appropriate enhancement without calculus or hydronephrosis. Gastrointestinal system: Mild small bowel wall thickening and enhancement without dilation or evidence of obstruction. No free air.. Multiple diverticula arise from the sigmoid colon without evidence of diverticulitis. Appendix: No findings to suggest acute appendicitis. Peritoneal spaces: No mesenteric or retroperitoneal adenopathy. No free air. No free fluid. Vasculature: The IVC, aorta and iliac vasculature are unremarkable. Abdominal wall: Abdominal wall intact without evidence of ventral or inguinal hernias. Musculoskeletal: Normal bone mineralization. No acute fractures. IMPRESSION: 1. Mild small bowel nonspecific wall thickening and enhancement without obstruction may reflect ileus or enteritis. 2. Sigmoid and left colon diverticulosis without evidence of diverticulitis Approved by: Isael Membreno M.D. on 12/26/2022 at 17:52
== END 2022-12-26 19:19 | disposition home or self-care (01) ==
PROVIDERS: Emergency Medicine; Emergency Provider Physician Assistant; PCP Naturopath
DX: R10.32 Left lower quadrant pain (principal)
CPT/HCPCS: 36415; 74177; 80053; 81003; 83690; 85025; 93005; 99284

== ENCOUNTER → 2023-02-02 10:50 | Outpatient (CLI) | payer OTHER, SELFPAY | PROVIDERS: PCP Naturopath; Visit Provider Physician Assistant | DX: R10.9 Unspecified abdominal pain (principal) | CPT/HCPCS: 87086 ==

== ENCOUNTER → 2023-02-02 10:56 | Outpatient (CLI) | payer OTHER, SELFPAY ==
--- NOTE | 2023-02-02 10:58 | DI.RAD.S_ITS ---
PROCEDURE: XR RIBS RT MIN 3V W CXR 1V INDICATIONS: constant pain lateral posterior rib 10 days TECHNIQUE: 2 views of the right ribs were acquired, along with a single view chest. COMPARISON: None. FINDINGS: Surgical changes and devices: None. Bones and chest wall: No fractures or dislocations. No suspicious bony lesions. Overlying soft tissues appear unremarkable. Lungs and pleura: No pleural effusions or pneumothorax. Lungs appear clear. Mediastinum: Mediastinal contours appear normal. Heart size is normal. IMPRESSION: Chest without acute cardiopulmonary abnormalities. No acute/displaced rib fractures identified. Dictated by: Chi Sapp M.D. on 02/02/2023 at 17:55 Approved by: Chi Sapp M.D. on 02/02/2023 at 17:56
[2023-02-02 12:50] LABS: Add Manual Diff / Slide Review NO; Basophils Absolute Auto 0 /uL (0-100); Basophils Percent Auto 0.3 % (0-2); Eosinophils Absolute Auto 100 /uL (0-450); Eosinophils Percent Auto 0.6 % (2-4); Hemoglobin 13.5 g/dL (12.0-16.0); Lymphocytes Absolute Auto 2400 /uL (1100-4500); Lymphocytes Percent Auto 28.7 % (25-40); Mean Corpuscular HGB Conc 34.5 % (30-36); Mean Corpuscular Hemoglobin 30.5 PG (26-34); Mean Corpuscular Volume 88.2 fL (80-100); Monocytes Absolute Auto 500 /uL (0-900); Monocytes Percent Auto 5.6 % (3-14); Neutrophils Absolute Auto 5400 /uL (1500-7000); Neutrophils Percent Auto 64.8 % (50-75); Platelet Count 240 X10^3/uL (150-400); Red Blood Cell Count 4.43 X10^6/uL (4.0-5.2); Red Cell Distribution Width 13.6 % (11.6-14.8); White Blood Cell Count 8.3 X10^3/uL (4.5-11.0)
[2023-02-02 13:28] LABS: Alanine Aminotransferase 25 IU/L (<35); Albumin 4.5 g/dL (3.5-5.0); Albumin Globulin Ratio 1.7 (1.0-2.8); Alkaline Phosphatase 53 U/L (38-126); Aspartate Aminotransferase 24 IU/L (14-36); BUN Creatinine Ratio 17.5 (6-22); Bilirubin Total 0.4 mg/dL (0.2-1.3); Blood Urea Nitrogen 11 mg/dL (7-17); Calcium 9.9 mg/dL (8.4-10.2); Carbon Dioxide 30 mmol/L (22-32); Chloride 102 mmol/L (98-107); Estimated Glomerular Filt Rate > 60 mL/min (>60); Globulin 2.6 g/dL (1.7-4.1); Glucose 87 mg/dL (70-100); HEMOLYSIS 16 (0-50); Lipase 62 U/L (23-300); Potassium 4.2 mmol/L (3.4-5.1); Sodium 139 mmol/L (137-145); Total Protein 7.1 g/dL (6.3-8.2)
== END ==
PROVIDERS: PCP Naturopath; Referring Provider Physician Assistant; Visit Provider Physician Assistant
DX: R10.9 Unspecified abdominal pain (principal)
CPT/HCPCS: 36415; 71101; 80053; 83690; 85025; 87086

== ENCOUNTER → 2023-02-12 11:57 | Outpatient (CLI) | payer OTHER, SELFPAY ==
--- NOTE | 2023-02-12 12:00 | DI.CT.S_ITS ---
PROCEDURE: CT ABDOMEN W CON INDICATIONS: Constant right side pain X 10 days , trace hematuria TECHNIQUE: After the administration of oral and intravenous contrast, 5 mm thick sections acquired from the diaphragms to the iliac crests. 5 mm thick coronal and sagittal reformats were acquired. For radiation dose reduction, the following was used: automated exposure control, adjustment of mA and/or kV according to patient size. COMPARISON: None. FINDINGS: Image quality: Excellent. Lung bases: Lung bases are clear. Heart size is normal. Solid organs: Liver is normal in size and enhancement. Gallbladder appears to contain internal noncalcified gallstones. Biliary system is non dilated. Pancreas enhances normally. Spleen is normal in size and enhancement. No adrenal nodules. Kidneys are normal in size, without hydronephrosis. Peritoneum and bowel: Contrast enhanced bowel loops appear normal in caliber. No free fluid or air. Nodes and vessels: No retroperitoneal or mesenteric adenopathy by size criteria. Aorta and inferior vena cava are normal in size. Bones: No suspicious bony lesions. No vertebral body compression fractures. Miscellaneous: No ventral hernias. IMPRESSION: Suspect multiple noncalcified, but without clear evidence of acute cholecystitis or biliary distension. Ultrasound would provide a more accurate assessment if clinically indicated. Dictated by: Alvarez Rivers M.D. on 02/12/2023 at 14:53 Approved by: Alvarez Rivers M.D. on 02/12/2023 at 14:59
== END ==
PROVIDERS: PCP Naturopath; Referring Provider Physician Assistant; Visit Provider Physician Assistant
DX: R10.31 Right lower quadrant pain (principal); R10.11 Right upper quadrant pain
CPT/HCPCS: 74160; Q9967

== ENCOUNTER → 2023-03-04 06:55 | Outpatient (CLI) | payer OTHER, SELFPAY ==
--- NOTE | 2023-03-04 | DI.MG.S_ITS ---
BILATERAL DIGITAL SCREENING MAMMOGRAM 3D/2D WITH CAD: 03/04/2023 CLINICAL: Routine screening. Comparison is made to exams dated: 02/26/2022 mammogram, 01/17/2021 mammogram, 12/14/2018 mammogram, 04/23/2022 mammogram, and 01/03/2020 mammogram - [facility]. Both breasts are heterogeneously dense, which may obscure small masses (category c / 51-75% glandular tissue). Current study was also evaluated with a Computer Aided Detection (CAD) system. No significant masses, calcifications, or other findings are seen in either breast. There has been no significant interval change. IMPRESSION: NEGATIVE There is no mammographic evidence of malignancy. A 1 year screening mammogram is recommended. Based on the Tyrer Cuzick model (a risk assessment model) the patient's lifetime risk is 5.3% and her 10 year risk is 1.7%. According to the ACR, ACS, and NCCN guidelines, an annual breast MRI exam along with mammogram is recommended if the patient's lifetime risk is 20% or greater. This exam was interpreted at Station ID: [id number]. NOTE: For mammograms, a report in lay terms will be sent to the patient. Approximately 15% of breast malignancies will not be visualized mammographically. In the management of a palpable breast mass, a negative mammogram must not discourage biopsy of a clinically suspicious lesion. Electronically Signed By: Kieran mckenzie/ekaterina:03/04/2023 14:13:33 letter sent: Normal Exam ACR BI-RADS Category 1: Negative [id number]
--- NOTE | 2023-03-04 06:56 | DI.US.S_ITS ---
PROCEDURE: US ABDOMEN LIMITED INDICATIONS: FOLLOW UP ON CT - CHECK FOR GALLSTONES TECHNIQUE: Real-time scanning was performed of the abdominal and retroperitoneal organs, with image documentation. COMPARISON: [facility], CT, CT ABDOMEN W CON, 02/12/2023, 13:29. FINDINGS: Liver: Liver is normal in size and homogeneous in echotexture. Gallbladder: Gallbladder contains a trace amount of sludge. No gallstones. No wall thickening. Negative pericholecystic fluid. Negative sonographic [place]. Biliary ducts: Intrahepatic bile ducts are non-dilated. Extrahepatic bile duct caliber measures 5 mm. Normal is 6-7 mm or less in diameter, or 10 mm or less post-cholecystectomy. Pancreas: Visualized portions of the pancreas are sonographically normal. Miscellaneous: No free abdominal fluid. IMPRESSION: Gallbladder sludge. Otherwise, no sonographic evidence for cholelithiasis or acute cholecystitis. Dictated by: Chi Sapp M.D. on 03/04/2023 at 9:37 Approved by: Chi Sapp M.D. on 03/04/2023 at 9:48
== END ==
PROVIDERS: PCP Naturopath; Referring Provider Physician Assistant; Visit Provider Physician Assistant
DX: Z12.31 Encounter for screening mammogram for malignant neoplasm of breast (principal); R10.9 Unspecified abdominal pain; K82.8 Other specified diseases of gallbladder
CPT/HCPCS: 76705; 77063; 77067

== ENCOUNTER 2023-10-20 12:12 | Emergency (ER) | payer OTHER, SELFPAY ==
[2023-10-20 12:16] VITALS: BP 140/81; PULSE 78; RESP 14; TEMP 36.6; O2SAT 97; BMI 22.4
--- NOTE | 2023-10-20 12:19 | DI.RAD.S_ITS ---
PROCEDURE: XR SHOULDER RT MIN 2V INDICATIONS: shoulder pain TECHNIQUE: 3 views of the shoulder were acquired. COMPARISON: None. FINDINGS: Bones: No fractures or dislocations. No suspicious bony lesions. Visualized ribs appear intact. Soft tissues: No suspicious soft tissue calcifications. IMPRESSION: No acute bony abnormality. Dictated by: Jose De Jesus Oliveira M.D. on 10/20/2023 at 13:33 Approved by: Jose De Jesus Oliveira M.D. on 10/20/2023 at 13:36
--- NOTE | 2023-10-20 13:51 | ED_ITS ---
HPI - Extremity Problem General Chief complaint: Extremity Problem,Nontraumatic Stated complaint: rt shoulder pain Time Seen by Provider: 10/20/23 13:45 Source: patient Mode of arrival: Ambulatory History of Present Illness HPI Narrative: Patient 58-year-old female without significant past medical history presents today with right shoulder pain. She reports that she was at work she got angry and she slammed her tablet down. She is having significant right shoulder pain. No numbness or tingling. She is having to carry it around. She takes ibuprofen regularly for it is not really getting any better. She does not want L and I for this Related Data Previous Rx's Medication Instructions Recorded naproxen 500 mg tablet 500 mg PO BID #30 tabs 02/02/23 hydrocodone 5 mg-acetaminophen 325 1 tab PO Q6H PRN pain #10 tabs 10/20/23 mg tablet Allergies Allergy/AdvReac Type Severity Reaction Status Date / Time morphine [MORPHINE] Allergy Unknown ITCHING Verified 10/20/23 12:16 Patient History Medical History (Updated 10/20/23 @ 14:07 by Adali Ames DO) TAB (stress urinary incontinence, female) Surgical History S/P hysterectomy (~1997) Social History Smoking Status: Never smoker Smoking Status: Never smoker alcohol intake frequency: holidays/special occasions only Alcohol type: hard liquor Substance Use Type: does not use Exam Initial Vital Signs Initial Vital Signs: Vital Signs Temperature 97.8 F 10/20/23 12:16 Pulse Rate 78 10/20/23 12:16 Respiratory Rate 14 10/20/23 12:16 Blood Pressure 140/81 10/20/23 12:16 Pulse Oximetry 97 10/20/23 12:16 Oxygen Delivery Method Room Air 10/20/23 12:16 GENERAL: Alert pleasant 58-year-old female CARDIOVASCULAR: peripheral pulses in tact, cap refill <2 sec RESPIRATORY: No respiratory distress, speaks in full sentences without di fficulty EXTREMITIES: Normal range of motion, no clubbing or edema. Neurovascularly intact Right upper extremity distal radial pulse intact, significant decreased range of motion of right shoulder decreased abduction flexion and extension NEUROLOGICAL: Cranial nerves II through XII grossly intact. Normal gait and speech. SKIN: Warm, dry, no petechiae, no rashes or lesions. Course Orders Ordered: ED Orders 10/20/23 12:19 XR shoulder RT min 2V Stat Vital Signs Vital signs: Vital Signs - 8 hr 10/20/23 12:16 Temperature 97.8 F Pulse Rate 78 Respiratory Rate 14 Blood Pressure 140/81 Pulse Oximetry 97 Oxygen Delivery Method Room Air MDM - Extremity (Nontraumatic) Imaging Data Extremity x-ray #1: Radiologist's Impression: PROCEDURE: XR SHOULDER RT MIN 2V INDICATIONS: shoulder pain TECHNIQUE: 3 views of the shoulder were acquired. COMPARISON: None. FINDINGS: Bones: No fractures or dislocations. No suspicious bony lesions. Visualized ribs appear intact. Soft tissues: No suspicious soft tissue calcifications. IMPRESSION: No acute bony abnormality. Dictated by: Jose De Jesus Oliveira M.D. on 10/20/2023 at 13:33 MDM Narrative Medical decision making narrative: Patient is a 58-year-old female presents today with right shoulder pain. On exam she does have significant decreased range of motion. She is trying to become made on a [place] she has an examination and test to take next week she has not able to sleep at night. X-ray has been reviewed and negative. Recommend outpatient workup and MRI. He has given a sling to help but recommend taking it out frequently Discharge Plan Departure Patient Disposition: Home Clinical Impression: Other sprain of right shoulder joint, initial encounter Instructions: DI for Shoulder Pain Activity Restrictions/Additional Instructions: *You have been diagnosed with right shoulder pain *What to do: You can wear a sling while active be sure to take your shoulder out multiple times a day and move it to prevent frozen shoulder *Continue to take medications as directed Tylenol 1000 mg every 6 hours for ublg-te-prdppkru Motrin 400 mg every 6 hours for yiee-ot-ytoblkmo Cascade 1 tablet every 6 hours for severe pain (do not combine with other Tylenol, may combine with Motrin) *Follow up with your primary care provider in 2-3 days or call [phone] Call orthopedics or your PCP to schedule follow up appointment and possible MRI *Return to ER if you should have any new, worsening or concerning symptoms CONTROLLED SUBSTANCE DISCHARGE (Narcotoic/benzodiazepine/Flexeril/Phenergan) 1. You have been prescribed narcotic medications, it does have acetaminophen/Tylenol/paracetamol in it, DO NOT TAKE MORE THAN 4,00mg in 24 hours of Tylenol. TRAMADOL DOES NOT CONTAIN TYLENOL 2. Please understand that we cannot provide further refills of narcotics, benzodiazepines or controlled substances through the ED and her pain management will need to be through your provider. 3. While on these medications you cannot drive or operate heavy machinery. 4. You cannot sign legal documents or perform any duties such as this. 5. As long as you're taking opiate pain medications he should also be taking a stool softener such as Colace, Dulcolax, MiraLAX or prune juice, to help avoid constipation. Prescriptions: New hydrocodone-acetaminophen 5-325 mg tablet 1 tab PO Q6H PRN (Reason: pain) Qty: 10 0RF No Action naproxen 500 mg tablet 500 mg PO BID Qty: 30 0RF Referrals: Scarlet Butterfield [place] [Primary Care Provider] - Stand Alone Forms: Patient Portal/API
[2023-10-20] MEDS: KETOROLAC 30 MG/ML VIAL IM (14:08)
[2023-10-20 14:10] VITALS: BP 126/72; PULSE 58; RESP 14; O2SAT 99
== END 2023-10-20 14:23 | disposition home or self-care (01) ==
PROVIDERS: Emergency Provider Emergency Medicine; PCP Naturopath
DX: S43.401A Unspecified sprain of right shoulder joint, initial encounter (principal); X58.XXXA Exposure to other specified factors, initial encounter
CPT/HCPCS: 73030; 96372; 99283; J1885

== ENCOUNTER → 2024-02-12 08:44 | Outpatient (CLI) | payer OTHER, SELFPAY ==
--- NOTE | 2024-02-12 08:46 | DI.MG.S_ITS ---
BILATERAL DIGITAL SCREENING MAMMOGRAM 3D/2D WITH CAD: 02/12/2024 CLINICAL: Routine screening. Comparison is made to exams dated: 03/04/2023 mammogram, 02/26/2022 mammogram, and 01/17/2021 mammogram - [facility]. The breasts are heterogeneously dense, which may obscure small masses (category c / 51-75% glandular tissue). Current study was also evaluated with a Computer Aided Detection (CAD) system. No significant masses, calcifications, or other findings are seen in either breast. There has been no significant interval change. IMPRESSION: NEGATIVE There is no mammographic evidence of malignancy. A 1 year screening mammogram is recommended. Based on the Tyrer Cuzick model (a risk assessment model) the patient's lifetime risk is 5.2% and her 10 year risk is 1.8%. According to the ACR, ACS, and NCCN guidelines, an annual breast MRI exam along with mammogram is recommended if the patient's lifetime risk is 20% or greater. This exam was interpreted at Station ID: [id number]. NOTE: For mammograms, a report in lay terms will be sent to the patient. Approximately 15% of breast malignancies will not be visualized mammographically. In the management of a palpable breast mass, a negative mammogram must not discourage biopsy of a clinically suspicious lesion. Electronically Signed By: Chi allen/ekaterina:02/12/2024 14:21:42 letter sent: Normal Exam ACR BI-RADS Category 1: Negative
== END ==
LOC: MAMMO 08:44
PROVIDERS: PCP Naturopath; Referring Provider Naturopath; Visit Provider Naturopath
DX: Z12.31 Encounter for screening mammogram for malignant neoplasm of breast (principal); Z80.3 Family history of malignant neoplasm of breast
CPT/HCPCS: 77063; 77067

== ENCOUNTER → 2024-05-23 12:30 | Outpatient (CLI) | payer OTHER, SELFPAY ==
--- NOTE | 2024-05-23 12:31 | DI.MRI.S_ITS ---
PROCEDURE: MR SHOULDER RT WO CON INDICATIONS: JOINT DISORDER RT SHOULDER TECHNIQUE: Noncontrast oblique coronal T2 fast spin echo with fat saturation, oblique sagittal T1 spin echo and T2 fast spin echo with fat saturation, axial T1 spin echo and T2 fast spin echo with fat saturation through the shoulder. COMPARISON: None. FINDINGS: Image quality: Excellent. Rotator cuff: Low to moderate grade articular and bursal surface partial thickness tear involving distal supraspinatus at its insertion on the humeral head is seen extending to musculotendinous junction. Distal infraspinatus tendinosis is seen. Low-grade intrasubstance partial-thickness tear involving superior to mid fibers of distal subscapularis is noted. Sagittal images demonstrate no significant rotator cuff muscle atrophy. Bones and bursae: No bone marrow contusions or fractures. Vruc-gj-kyfqokrn acromioclavicular joint osteoarthritic changes are seen with joint space narrowing and downward osteophyte formation depressing the musculotendinous junction of supraspinatus. Mild glenohumeral joint osteoarthritic changes also noted. Type 2 acromion without an os acromiale. Small amount of joint effusion and subacromial subdeltoid bursal fluid is seen, no gross loose bodies. Capsule and soft tissues: Subtle signal abnormality and fraying involving superior glenoid labrum at 11 to 1 o'clock position concerning for superior glenoid labral tear. The long head of the biceps tendon demonstrates normal location and morphology. The rotator interval appears normal, without fibrosis. The coracohumeral ligament is normal in thickness. IMPRESSION: 1. Low to moderate grade articular and bursal surface partial thickness tear involving distal supraspinatus extending to musculotendinous junction. Distal infraspinatus tendinosis. Low-grade intrasubstance partial-thickness tear involving superior to mid fibers of distal subscapularis. No full-thickness rotator cuff tendon rupture. No significant rotator cuff muscle atrophy. 2. 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 No fracture or dislocation. Small joint effusion and subacromial subdeltoid bursal fluid, no loose bodies. 3. Suggestion of extensive superior glenoid labral tear at 11 to 1 o'clock position. Dictated by: Karlo Shrestha M.D. on 05/23/2024 at 15:15 Approved by: Karlo Shrestha M.D. on 05/23/2024 at 15:40
== END ==
LOC: MRI 12:30
PROVIDERS: PCP Naturopath; Referring Provider Naturopath; Visit Provider Naturopath
DX: M25.811 Other specified joint disorders, right shoulder (principal); M75.111 Incomplete rotator cuff tear or rupture of right shoulder, not specified as traumatic; M19.011 Primary osteoarthritis, right shoulder; M25.411 Effusion, right shoulder
CPT/HCPCS: 73221

== ENCOUNTER → 2025-05-05 09:49 | Outpatient (CLI) | payer OTHER, SELFPAY ==
--- NOTE | 2025-05-05 09:50 | DI.MG.S_ITS ---
MM screening mammo BI: 05/05/2025. BI-RADS: 1 CLINICAL: 59-year old female for bilateral screening mammogram. Tyrer-Cuzick lifetime risk of 9.8%. No personal or first-degree family history of breast cancer. PRIOR EXAMS 02/12/2024, 03/04/2023, 04/23/2022, 02/26/2022. MAMMOGRAPHY TECHNIQUE: 2D and 3D (tomosynthesis) digital mammographic views obtained, with additional images as needed for full coverage. Current study was also evaluated with a Computer Aided Detection (CAD) system. DENSITY C. The breasts are heterogeneously dense, which may obscure small masses. MAMMOGRAPHY FINDINGS Bilateral: No suspicious mass, asymmetry, microcalcification, or other abnormality seen. IMPRESSION: * No evidence of malignancy. RECOMMENDATIONS Bilateral * Annual screening mammography. OVERALL ASSESSMENT CATEGORY BI-RADS-1: Negative. The [employer] recommends annual screening mammography beginning at age 40 for women with average risk of breast cancer. ELECTRONICALLY SIGNED: Chi Sapp M.D. on 05/07/2025 at 07:03:37 AM PT Interpreting Station ID: [id number]
== END ==
PROVIDERS: PCP Naturopath; Referring Provider Naturopath; Visit Provider Naturopath
DX: Z12.31 Encounter for screening mammogram for malignant neoplasm of breast (principal); R92.333 Mammographic heterogeneous density, bilateral breasts
CPT/HCPCS: 77063; 77067